=== PATIENT | female | born 1945 | race Caucasian/White ===

== ENCOUNTER 2019-11-22 05:00 | Inpatient (IN) | payer MEDICARE, OTHER ==
--- OUTSIDE RECORDS SUMMARY | 2019-11-22 05:03 | XMS REPORT | Continuity of Care Document ---
:1945 Author Organization [facility] t Address [address] [place] [address] Care Team Providers Name Role Phone Unavailable Unavailable Unavailable Problems Condition Condition Condition Status Onset Resolution Last Treating Co mments Source Name Details Category Date Date Treatment Clinician Date Other Other Problem Active [facility] Left arm Left arm Problem [facility] Pain in Pain in Problem Active [facility] left left [facility] Chronic Chronic Problem Active [facility] gout gout [facility] without without [facility] tophus, tophus, l unspecifie unspecifie Ou tpati d cause, d cause, ent unspecifie unspecifie Cl inics d site d site Gastroesop Gastroesop Problem Active [facility] hageal hageal [facility] - reflux reflux [facility] disease, disease, l esophagiti esophagiti Ou tpati s presence s presence en t not not Clinics specified specified Coronary Coronary Problem [facility] artery [facility] - disease disease [facility] involving involving l [facility] coronary coronary ent artery of artery of Clin ics circle circle heart heart without without angina angina pectoris pectoris Hyperlipid Hyperlipid Problem Active [facility] emia, emia, [facility] - unspecifie unspecifie Me moria d d l hyperlipid hyperlipid Ou tpati emia type emia type ent Clinics Cancer Cancer Problem [facility] Acquired Acquired Problem Active [facility] hypothyroi hypothyroi [facility]m [facility] Hepatitis Hepatitis Problem [facility] Atrial Atrial Problem Active [facility] fibrillati fibrillati [facility] - on, on, Memoria unspecifie unspecifie l d type d type Outpati ent Clinics High blood High blood Problem Active [facility] pressure pressure [facility] Kidney Kidney Problem Active [facility] stones stones [facility] Heart Heart Problem Active [facility] disease disease [facility] Gallstones Gallstones Problem Active [facility] Abnormal Abnormal Problem Active [facility] heart heart [facility] - rhythm rhythm [facility] Allergies, Adverse Reactions, Alerts Allergy Allergy Status Severity Reaction(s) Onset Inactive Treating Comm ents Source Name Type Date Date Clinician penicill Adverse Active rash,itching [facility] in Reaction [facility] Medications Ordered Filled Start Stop Current Ordering Indication Dosage Frequency Signature Comments Components Source Medication Medication Date Date Medication? Clinician (SIG) Name Name Ivet Cooney Yes Raven [address] [facility] Thyroid Thyroid Millender on an Jethro es - empty [facility] stomach l [facility] Procedures This patient has no known procedures. Encounters Start End Encounter Admission Attending Care Care Encounter Source Date/Time Date/Time Type Type Clinicians Facility Department ID 2019-08-20 2019-08-20 Outpatient Jacquie Marshall [id number] [facility] 12:42:00 12:42:00 [facility] Medicine [facility] 2019-08-18 2019-08-18 Outpatient Jacquie Marshall [id number] [facility] 21:15:00 21:15:00 [facility] 2019-08-16 2019-08-16 Outpatient Jacquie Marshall [id number] [facility] 14:00:00 14:00:00 [facility] Medicine Medicine [facility] Results This patient has no known results.
[2019-11-22] MEDS ORDERED: ACETAMINOPHEN 325 MG TABLET ONE (05:26)
[2019-11-22] MEDS ORDERED: NA CHLORIDE 0.9% 500 ML ONE (05:26)
[2019-11-22] MEDS ORDERED: ONDANSETRON 4 MG/2 ML VIAL ONE (05:26)
[2019-11-22 05:55] LABS: Absolute Lymphocytes (CBC) 0.5 K/uL (0.7-4.9); Basophils % 0.3 % (0-1.3); Lymphocytes % 4.4 % (15.3-44.8); MPV 10.5 fL (7.6-11.3); RBC Red Blood Cell Count 3.87 M/uL (3.86-4.86)
[2019-11-22] MEDS ORDERED: MORPHINE 4 MG/ML SYR ONE (05:59)
[2019-11-22 06:02] LABS: Protime INR 2.41
[2019-11-22 06:06] LABS: ALT/SGPT 14 U/L (12-78); AST/SGOT 18 U/L (15-37); Albumin 3.4 g/dL (3.4-5.0); Alkaline Phosphatase 100 U/L (45-117); BUN Blood Urea Nitrogen 26 mg/dL (7-18); Bicarbonate 26 mmol/L (21-32); Bilirubin Direct 0.3 mg/dL (0-0.2); Bilirubin Total 1.2 mg/dL (0.2-1.0); Glucose Level 160 mg/dL (74-106); Magnesium 1.7 mg/dL (1.8-2.4); NT PRO-BNP 9373 pg/mL (<125); Potassium 3.5 mmol/L (3.5-5.1); Protein, Total 7.6 g/dL (6.4-8.2); Sodium Level 139 mmol/L (136-145); Troponin (Emerg Dept Use Only) < 0.02 ng/mL (0.0-0.045)
[2019-11-22] MEDS ORDERED: NA CHLORIDE 0.9% 2,000 ML ONE (06:17)
[2019-11-22] MEDS ORDERED: CEFTRIAXONE/SWI 1gm 1 GM/10 ML SYR ONE (06:17)
[2019-11-22] MEDS ORDERED: FAMOTIDINE 20 MG/2 ML VIAL IV ONE (06:44)
--- NOTE | 2019-11-22 07:24 | ER ---
Nurse's Notes [facility] Name: Sarah Miller Age: 73 yrs Sex: Female : 1945 Arrival Date: 11/22/2019 Time: 05:01 Bed 7 Private MD: Diagnosis: Fever, unspecified;Weakness;Hypomagnesemia;Sepsis, unspecified organism Presentation: 11/21 05:02 Chief complaint: EMS states: patient complaint of nausea, vomiting, not feeling well rr5 and chills. denies cough, or fever started yesterday. Coronavirus screen: Proceed with normal triage. Patient denies a cough. Patient denies shortness of breath or difficulty breathing. Patient denies measured and/or subjective temperature greater than 100.4F prior to today's visit. Patient denies travel on a cruise ship or to a country the [facility] currently lists as an affected area. Patient denies contact with known and/or suspected case of COVID-19. Ebola Screen: Patient negative for fever greater than or equal to 101.5 degrees Fahrenheit, and additional compatible Ebola Virus Disease symptoms Patient denies exposure to infectious person. Patient denies travel to an Ebola-affected area in the 21 days before illness onset. Initial Sepsis Screen: Does the patient meet any 2 criteria? No. Patient's initial sepsis screen is negative. Does the patient have a suspected source of infection? No. Patient's initial sepsis screen is negative. Risk Assessment: Do you want to hurt yourself or someone else? Patient reports no desire to harm self or others. Onset of symptoms was November 21, 2019. 05:02 Method Of Arrival: EMS: [facility] rr5 05:02 Acuity: JOYCE 3 rr5 Historical: - Allergies: 05:10 PENICILLINS; rr5 - Home Meds: 05:10 lisinopril Oral [Active]; unable to give the names medications [Active]; rr5 - PMHx: 05:10 Myocardial infarction; Hypertension; rr5 - PSHx: 05:10 Cholecystectomy; rr5 - Immunization history:: Adult Immunizations unknown. - Social history:: Smoking status: unknown Patient/guardian denies using alcohol, street drugs. - Family history:: not pertinent. Screenin:10 Abuse screen: Denies threats or abuse. Denies injuries from another. Nutritional rr5 screening: No deficits noted. Tuberculosis screening: No symptoms or risk factors identified. Fall Risk IV access (20 points). Total Macias Fall Scale indicates No Risk (0-24 pts). Assessment: 05:11 General: Appears in no apparent distress. uncomfortable, Behavior is calm, cooperative, rr5 appropriate for age, Reports chills for feeling ill for. Pain: Denies pain. Neuro: Level of Consciousness is awake, alert, obeys commands, Oriented to person, place, time. Cardiovascular: Capillary refill < 3 seconds Patient's skin is warm and dry. Respiratory: Airway is patent Respiratory effort is even, unlabored, Respiratory pattern is regular, symmetrical. GI: Reports nausea, vomiting. : No signs and/or symptoms were reported regarding the genitourinary system. EENT: No signs and/or symptoms were reported regarding the EENT system. Derm: Skin is intact, is healthy with good turgor, Skin temperature is warm. Musculoskeletal: Circulation, motion, and sensation intact. Capillary refill < 3 seconds, Reports weakness in generalized. 06:00 Reassessment: Patient appears in no apparent distress at this time. No changes from rr5 previously documented assessment. Patient is alert, oriented x 3, equal unlabored respirations, skin warm/dry/pink. 07:10 General: Appears in no apparent distress. comfortable, well developed, Behavior is sv calm, cooperative, appropriate for age. Pain: Denies pain. Neuro: Level of Consciousness is awake, alert, obeys commands, Oriented to person, place, time, situation, Moves all extremities. Full function. Respiratory: Airway is patent Respiratory effort is even, unlabored, Respiratory pattern is regular, symmetrical. GI: Patient currently denies nausea, vomiting. Derm: Skin is intact, Skin is pink, warm \T\ dry. 07:44 Reassessment: COVID obtained. sv 07:59 Reassessment: Attempted to call report, nurse to call back. sv 08:40 Reassessment: Attempted to call report, nurse to call back. sv 09:25 Reassessment: Patient appears in no apparent distress at this time. No changes from sv previously documented assessment. Patient is alert, oriented x 3, equal unlabored respirations, skin warm/dry/pink. Vital Signs: 05:02 BP 146 / 75; Pulse 85; Resp 20; Temp 99.4; Pulse Ox 100% ; rr5 06:52 BP 111 / 51; Pulse 90; Resp 18; Pulse Ox 95% on 2 lpm NC; ea 07:40 Pulse 91; Resp 16; Pulse Ox 97% ; sv 08:35 BP 92 / 52; Pulse 83; Resp 20; Temp 98.9(O); Pulse Ox 96% on R/A; mh5 09:24 Weight 82.55 kg; Height 5 ft. 5 in. (165.10 cm); sv 09:24 Body Mass Index 30.29 (82.55 kg, 165.10 cm) ED Course: 05:01 Patient arrived in ED. cl3 05:02 Hari Squires, RN is Primary Nurse. rr5 05:05 Triage completed. rr5 05:10 Arm band placed on right wrist. rr5 05:10 Patient has correct armband on for positive identification. Placed in gown. Bed in low rr5 position. Call light in reach. Side rails up X2. monitoring analyst on. Pulse ox on. NIBP on. 05:29 Willi Fink MD is Attending Physician. cyndi 05:30 Inserted saline lock: 20 gauge in left antecubital area, using aseptic technique. Blood ea collected. 05:57 XRAY Chest (1 view) In Process Unspecified. EDMS 06:38 CT Stone Protocol In Process Unspecified. EDMS 07:21 Prince Savage MD is Hospitalizing Provider. cyndi 07:24 Primary Nurse role handed off by Hari Squires, RN sv 07:24 Nancy Chan, TONE is Primary Nurse. sv 08:53 No provider procedures requiring assistance completed. Patient admitted, IV remains in sv place. intact. 09:17 Urine Dipstick--Ancillary (enter results) Sent. sv Administered Medications: 05:38 Drug: NS 0.9% 500 ml Route: IV; Rate: bolus; Site: left antecubital; ea 06:10 Follow up: Response: No adverse reaction; IV Status: Completed infusion; IV Intake: rr5 500ml 05:38 Drug: Zofran (Ondansetron) 4 mg Route: IVP; Site: left antecubital; ea 06:30 Follow up: Response: No adverse reaction rr5 05:50 Drug: Tylenol 650 mg Route: PO; ea 07:00 Follow up: Response: No adverse reaction rr5 05:55 Drug: morphine 4 mg {Note: RASS 1.} Route: IVP; Site: left antecubital; ea 06:12 Drug: Rocephin 1 grams Route: IV; Rate: per protocol; Site: left antecubital; ea 06:18 Drug: NS 0.9% 1000 ml Route: IV; Rate: 1 bolus; Site: left antecubital; ea 06:18 Drug: NS 0.9% 1000 ml Route: IV; Rate: 125 ml/hr; Site: left antecubital; ea 06:38 Drug: Pepcid 20 mg Route: IVP; Site: left antecubital; ea 07:23 Follow up: Response: No adverse reaction sv 07:44 Drug: Magnesium Sulfate 1 grams Route: IVPB; Infused Over: 1 hrs; Site: left sv antecubital; 08:50 Follow up: Response: No adverse reaction; IV Status: Completed infusion; IV Intake: sv 100ml Intake: 06:10 IV: 500ml; Total: 500ml. rr5 08:50 IV: 100ml; Total: 600ml. sv Outcome: 07:23 Decision to Hospitalize by Provider. cyndi 09:25 Admitted to Tele accompanied by tech, via wheelchair, room 412, with chart, Report sv called to Helena WAYNE 09:25 Condition: improved 09:25 Instructed on the need for admit. 09:53 Patient left the ED. sv Signatures: Dispatcher [employer] Nancy Giron RN RN sv Anderson, Corey, MD MD cha Martinez, Maria 5 Antonia Arnold RN RN ea Roque, Raymond, RN RN rr5 Kevin Adame cl3
--- NOTE | 2019-11-22 07:24 | EDPHYS ---
Physician Documentation [facility] Name: Sarah Miller Age: 73 yrs Sex: Female : 1945 Arrival Date: 11/22/2019 Time: 05:01 Bed 7 Private MD: ED Physician Willi Fink HPI: 11/21 06:03 This 73 yrs old Female presents to ER via EMS with complaints of Flu Symptoms.cyndi 06:03 The patient presents with abdominal pain in the upper abdomen, in the lower abdomen. cyndi Onset: The symptoms/episode began/occurred 1 day(s) ago. The patient presents to the emergency department with nausea, vomiting, abdominal pain, of the right upper quadrant, left upper quadrant, right lower quadrant and left lower quadrant. Onset: The symptoms/episode began/occurred 2 day(s) ago. Possible causes: unknown. The symptoms are aggravated by nothing. The symptoms are alleviated by nothing. fever , n and v, weakness. Associated signs and symptoms: Pertinent positives: abdominal pain, fever, nausea, vomiting. Historical: - Allergies: 05:10 PENICILLINS; rr5 - Home Meds: 05:10 lisinopril Oral [Active]; unable to give the names medications [Active]; rr5 - PMHx: 05:10 Myocardial infarction; Hypertension; rr5 - PSHx: 05:10 Cholecystectomy; rr5 - Immunization history:: Adult Immunizations unknown. - Social history:: Smoking status: unknown Patient/guardian denies using alcohol, street drugs. - Family history:: not pertinent. ROS: 06:03 Constitutional: Negative for fever, chills, and weight loss, Eyes: Negative for injury, cyndi pain, redness, and discharge, ENT: Negative for injury, pain, and discharge, Neck: Negative for injury, pain, and swelling, Cardiovascular: Negative for chest pain, palpitations, and edema, Respiratory: Negative for shortness of breath, cough, wheezing, and pleuritic chest pain, Back: Negative for injury and pain, : Negative for injury, bleeding, discharge, and swelling, MS/Extremity: Negative for injury and deformity, Skin: Negative for injury, rash, and discoloration, Psych: Negative for depression, anxiety, suicide ideation, homicidal ideation, and hallucinations, Allergy/Immunology: Negative for hives, rash, and allergies, Endocrine: Negative for neck swelling, polydipsia, polyuria, polyphagia, and marked weight changes, Hematologic/Lymphatic: Negative for swollen nodes, abnormal bleeding, and unusual bruising. 06:03 Constitutional: Positive for body aches, chills, fatigue, fever, malaise, poor PO intake. 06:03 Abdomen/GI: Positive for abdominal pain, nausea and vomiting. 06:03 Neuro: Positive for dizziness, weakness. Exam: 06:03 Constitutional: This is a well developed, well nourished patient who is awake, alert, cyndi and in no acute distress. Head/Face: Normocephalic, atraumatic. Eyes: Pupils equal round and reactive to light, extra-ocular motions intact. Lids and lashes normal. Conjunctiva and sclera are non-icteric and not injected. Cornea within normal limits. Periorbital areas with no swelling, redness, or edema. ENT: Nares patent. No nasal discharge, no septal abnormalities noted. Tympanic membranes are normal and external auditory canals are clear. Oropharynx with no redness, swelling, or masses, exudates, or evidence of obstruction, uvula midline. Mucous membranes moist. Neck: Trachea midline, no thyromegaly or masses palpated, and no cervical lymphadenopathy. Supple, full range of motion without nuchal rigidity, or vertebral point tenderness. No Meningismus. Chest/axilla: Normal chest wall appearance and motion. Nontender with no deformity. No lesions are appreciated. Cardiovascular: Regular rate and rhythm with a normal S1 and S2. No gallops, murmurs, or rubs. Normal PMI, no JVD. No pulse deficits. Respiratory: Lungs have equal breath sounds bilaterally, clear to auscultation and percussion. No rales, rhonchi or wheezes noted. No increased work of breathing, no retractions or nasal flaring. Back: No spinal tenderness. No costovertebral tenderness. Full range of motion. Female : Normal external genitalia. Skin: Warm, dry with normal turgor. Normal color with no rashes, no lesions, and no evidence of cellulitis. MS/ Extremity: Pulses equal, no cyanosis. Neurovascular intact. Full, normal range of motion. Psych: Awake, alert, with orientation to person, place and time. Behavior, mood, and affect are within normal limits. 06:03 Abdomen/GI: Inspection: distension, Bowel sounds: normal, Palpation: mild abdominal tenderness, in all quadrants, Liver: no appreciated palpable abnormalities, Hernia: not appreciated. 06:54 ECG was reviewed by the Attending Physician. [facility] Vital Signs: 05:02 BP 146 / 75; Pulse 85; Resp 20; Temp 99.4; Pulse Ox 100% ; rr5 06:52 BP 111 / 51; Pulse 90; Resp 18; Pulse Ox 95% on 2 lpm NC; ea 07:40 Pulse 91; Resp 16; Pulse Ox 97% ; sv 08:35 BP 92 / 52; Pulse 83; Resp 20; Temp 98.9(O); Pulse Ox 96% on R/A; mh5 09:24 Weight 82.55 kg; Height 5 ft. 5 in. (165.10 cm); sv 09:24 Body Mass Index 30.29 (82.55 kg, 165.10 cm) sv MDM: 05:30 Patient medically screened. [facility] 06:06 Data reviewed: vital signs, nurses notes, lab test result(s), EKG, radiologic studies, cyndi CT scan, plain films. 06:07 Differential Diagnosis altered mental status, sepsis. Differential diagnosis: [facility] Nonspecific abd pain, cholecystitis, pancreatitis, gastroenteritis, cholecystitis, Cholelithiasis, gastroesophageal reflux disease, non-specific abd pain, pancreatitis, Peptic Ulcer Disease. 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 rate is 85 beats/min, rhythm is normal sinus rhythm, Pulse oximetry: on room air is 100 %. Test interpretation: by ED physician or midlevel provider: ECG, plain radiologic studies. Counseling: I had a detailed discussion with the patient and/or guardian regarding: the historical points, exam findings, and any diagnostic results supporting the discharge/admit diagnosis, lab results, radiology results. 11/21 05:07 Order name: Basic Metabolic Panel; Complete Time: 06:53 11/21 05:07 Order name: CBC with Diff; Complete Time: 07:32 11/21 05:07 Order name: LFT's; Complete Time: 06:53 11/21 05:07 Order name: Magnesium; Complete Time: 06:53 11/21 05:07 Order name: NT PRO-BNP; Complete Time: 06:53 11/21 05:07 Order name: PT-INR; Complete Time: 06:53 11/21 05:07 Order name: Troponin (emerg Dept Use Only); Complete Time: 06:53 11/21 05:37 Order name: Flu; Complete Time: 06:53 11/21 05:38 Order name: Strep; Complete Time: 06:53 11/21 06:02 Order name: Blood Culture Adult (2) [facility] 11/21 06:02 Order name: Lactate; Complete Time: 06:53 [facility] 11/21 06:02 Order name: Procalcitonin [facility] 11/21 06:02 Order name: Lipase [facility] 11/21 06:35 Order name: Throat Culture [facility]IL 11/21 05:07 Order name: XRAY Chest (1 view); Complete Time: 09:18 11/21 06:06 Order name: CT Stone Protocol; Complete Time: 09:18 [facility] 11/21 07:08 Order name: COVID-19 [facility] 11/21 07:29 Order name: Manual Differential; Complete Time: 07:32 EDMS 11/21 07:49 Order name: Urine Culture [facility] 11/21 08:40 Order name: Urine Dipstick--Ancillary (enter results) 11/21 08:53 Order name: Urine Dipstick-Ancillary; Complete Time: 09:18 EDMS 11/21 05:07 Order name: EKG; Complete Time: 05:07 11/21 05:07 Order name: Cardiac monitoring; Complete Time: 06:02 11/21 05:07 Order name: EKG - Nurse/Tech; Complete Time: 05:38 11/21 05:07 Order name: IV Saline Lock; Complete Time: 05:38 11/21 05:07 Order name: Labs collected and sent; Complete Time: 05:38 11/21 05:07 Order name: O2 Per Protocol; Complete Time: 05:39 11/21 05:07 Order name: O2 Sat Monitoring; Complete Time: 05:39 11/21 07:49 Order name: Urine Dipstick-Ancillary (obtain specimen); Complete Time: 08:38 [facility] EC:54 Rate is 77 beats/min. QRS [place] is Normal. MI interval is normal. QRS interval is cyndi normal. QT interval is normal. No Q waves. T waves are Normal. No ST changes noted. Clinical impression: NSR w/ Non-specific ST/T Changes and No evidence of ischemia. Interpreted by me. Reviewed by me. Administered Medications: 05:38 Drug: NS 0.9% 500 ml Route: IV; Rate: bolus; Site: left antecubital; ea 06:10 Follow up: Response: No adverse reaction; IV Status: Completed infusion; IV Intake: rr5 500ml 05:38 Drug: Zofran (Ondansetron) 4 mg Route: IVP; Site: left antecubital; ea 06:30 Follow up: Response: No adverse reaction rr5 05:50 Drug: Tylenol 650 mg Route: PO; ea 07:00 Follow up: Response: No adverse reaction rr5 05:55 Drug: morphine 4 mg {Note: RASS 1.} Route: IVP; Site: left antecubital; ea 06:12 Drug: Rocephin 1 grams Route: IV; Rate: per protocol; Site: left antecubital; ea 06:18 Drug: NS 0.9% 1000 ml Route: IV; Rate: 1 bolus; Site: left antecubital; ea 06:18 Drug: NS 0.9% 1000 ml Route: IV; Rate: 125 ml/hr; Site: left antecubital; ea 06:38 Drug: Pepcid 20 mg Route: IVP; Site: left antecubital; ea 07:23 Follow up: Response: No adverse reaction sv 07:44 Drug: Magnesium Sulfate 1 grams Route: IVPB; Infused Over: 1 hrs; Site: left sv antecubital; 08:50 Follow up: Response: No adverse reaction; IV Status: Completed infusion; IV Intake: sv 100ml Disposition: 11/22/19 07:23 Hospitalization ordered by Prince Hussein for Inpatient Admission. Preliminary diagnosis are Fever, unspecified, Weakness, Hypomagnesemia, Sepsis, unspecified organism. - Bed requested for Telemetry/MedSurg (Inpatient). - Status is Inpatient Admission. sv - Condition is Fair. - Problem is new. - Symptoms have improved. Signatures: Dispatcher [employer] Nancy Giron RN RN Willi dAams MD MD cha Roszak, Josh, PA PA [id number] Antonia Arnold RN RN ea Botello, Elizabeth eb Roque, Raymond RN RN rr5 Corrections: (The following items were deleted from the chart) 07:32 07:23 Hospitalization Ordered by Prince Hussein [facility]ENO for Inpatient Admission. Preliminary eb diagnosis is Fever, unspecified; Weakness; Hypomagnesemia; Sepsis, unspecified organism. Bed requested for Telemetry/MedSurg (Inpatient). Status is Inpatient Admission. Condition is Fair. Problem is new. Symptoms have improved. cyndi 07:52 07:32 11/22/2019 07:23 Hospitalization Ordered by Prince Hussein [facility] for Inpatient eb Admission. Preliminary diagnosis is Fever, unspecified; Weakness; Hypomagnesemia; Sepsis, unspecified organism. Bed requested for Telemetry/MedSurg (Inpatient). Status is Inpatient Admission. Condition is Fair. Problem is new. Symptoms have improved. eb 07:56 07:52 11/22/2019 07:23 Hospitalization Ordered by Prince Hussein [facility] for Inpatient eb Admission. Preliminary diagnosis is Fever, unspecified; Weakness; Hypomagnesemia; Sepsis, unspecified organism. Bed requested for [facility] ER HOLD. Status is Inpatient Admission. Condition is Fair. Problem is new. Symptoms have improved. eb 08:52 07:56 11/22/2019 07:23 Hospitalization Ordered by Prince Hussein [facility] for Inpatient eb Admission. Preliminary diagnosis is Fever, unspecified; Weakness; Hypomagnesemia; Sepsis, unspecified organism. Bed requested for Telemetry/MedSurg (Inpatient). Status is Inpatient Admission. Condition is Fair. Problem is new. Symptoms have improved. eb 09:53 08:52 11/22/2019 07:23 Hospitalization Ordered by Prince Hussein [facility] for Inpatient sv Admission. Preliminary diagnosis is Fever, unspecified; Weakness; Hypomagnesemia; Sepsis, unspecified organism. Bed requested for Telemetry/MedSurg (Inpatient). Status is Inpatient Admission. Condition is Fair. Problem is new. Symptoms have improved. eb
[2019-11-22 07:29] LABS: Anisocytosis 1+; Blood Morphology Comment NOTED (NOT SEEN); Platelet Estimate ADEQ; Poikilocytosis 1+
[2019-11-22] MEDS ORDERED: MAGNESIUM SULFATE 1 gm IVPB 1 GM/100 ML BAG IV ONE (07:35)
--- NOTE | 2019-11-22 08:32 | RAD REPORT ---
EXAM DESCRIPTION: CT - Stone Protocol - 11/22/2019 6:38 am CLINICAL HISTORY: Flank pain. Abd pain;Pain COMPARISON: No comparisons TECHNIQUE: Axial images were obtained without oral or IV contrast. Lack of contrast limits solid org an and vascular assessment. The [id number] spans the entirety of the system partially obscuring uppermost abdomen and lung bases. Coronal reformatted images were obtained and reviewed. All CT scans are performed using dose optimization technique as appropriate and may include automated exposure control or mA/KV adjustment according to patient size. FINDINGS: The lower lung dobbins are clear. Cholecystectomy clips. Imaged portions of the liver and spleen show no suspicious findings on non-contrast imaging. The panc reas and adrenal glands are normal. No pathologic lymphadenopathy in the abdomen or pelvis. Mildly atrophic right kidney is seen. Mild left renal perinephric fat stranding is seen. No stone or hydronephrosis. No bowel obstruction, free air, free fluid or abscess. The appendix is not identified as a discrete s tructure, however, no secondary findings of appendicitis are identified. Mild lumbar degenerative changes. IMPRESSION: No urinary tract stones or obstructive uropathy. Left perinephric fat stranding is seen, nonspecific. Suggest correlation for the possibility of urina ry tract infection/pyelonephritis.
[2019-11-22 08:53] LABS: Urine Blood 2+ (NEG); Urine Glucose NEGATIVE (NEG); Urine Protein 2+ (NEG); Urine pH 5.5 (5.0-7.0)
--- NOTE | 2019-11-22 08:59 | RAD REPORT ---
EXAM DESCRIPTION: RAD - Chest Single View - 11/22/2019 5:57 am CLINICAL HISTORY: MALAISE Chest pain. COMPARISON: CHEST SINGLE VIEW dated 02/04/2013; CHEST PA AND LAT 2 VIEW dated 01/24/2008; CHEST SINGLE VIEW dated 01/22/2008; CHEST PA AND LAT 2 VIEW dated 04/11/2003 FINDINGS: Portable technique limits examination quality. Mild interstitial pulmonary edema suspected. The heart is mildly enlarged in size. No displaced fract ures. IMPRESSION: Mild CHF.
--- NOTE | 2019-11-22 11:43 | P.HP ---
Certification for Inpatient Patient admitted to: Inpatient With expected LOS: >2 Midnights Practitioner: I am a practitioner with admitting privileges, knowledge of patient current condition, hospital course, and medical plan of care. Services: Services provided to patient in accordance with Admission requirements found in Title 42 Section 412.3 of the Code of Federal Regulations Patient History Date of Service: 11/22/19 Reason for admission: Generalized weakness History of Present Illness: Patient is a 73-year-old female with a past medical history of hypertension, hypothyroidism and atrial fibrillation (currently on apixaban). She presents to the ER complaining of acute onset of generalized weakness, malaise. Symptoms have been ongoing for the past 1 or 2 days and they worsen as evidenced by vomiting, chills and subjective fever. She is currently admitted as a PUI. Workup so far is suspicious for UTI. Allergies Penicillins Allergy (Verified 11/22/19 11:11) Hives/Rash Physical Examination - Vital Signs Temperature: 98.9 F Blood Pressure: 92/52 Pulse: 83 Respirations: 20 - Physical Exam General: Other (Lethargic and slightly frail) HEENT: Atraumatic, Normocephalic, Other (Right eye ptosis), EOMI Neck: Supple Respiratory: Clear to auscultation bilaterally, Normal air movement Cardiovascular: No edema, Normal pulses, Regular rate/rhythm, Normal S1 S2 Gastrointestinal: Normal bowel sounds, Soft and benign, Non-distended Musculoskeletal: Other (Generalized weakness and restricted in range of motion in both lower extremities extremities) Neurological: Normal speech, Sensation intact, Normal affect - Studies Laboratory Data (last 24 hrs) 11/22/19 06:02: Lipase Cancelled 11/22/19 05:30: PT 28.0 H, INR 2.41 11/22/19 05:30: WBC 11.3 H, Hgb 11.2 L, Hct 34.0 L, Plt Count 134 L 11/22/19 05:30: Sodium 139, Potassium 3.5, BUN 26 H, Creatinine 2.31 H, Glucose 160 H, Magnesium 1.7 L, Total Bilirubin 1.2 H, AST 18, ALT 14, Alkaline Phosphatase 100 Microbiology Data (last 24 hrs): 11/22/19 07:08 Nasopharnyx Coronavirus COVID-19 PCR - Final 11/22/19 05:40 Throat Group A Streptococcus Rapid Screen - Final 11/22/19 05:40 Nasopharnyx Influenza Type A Antigen Screen - Final 11/22/19 05:40 Nasopharnyx Influenza Type B Antigen Screen - Final Assessment and Plan - Problems (Diagnosis) (1) Generalized weakness Current Visit: Yes Status: Acute (2) UTI (urinary tract infection) Current Visit: Yes Status: Acute (3) Hypertension Current Visit: Yes Status: Acute (4) Atrial fibrillation Current Visit: Yes Status: Acute (5) Hypothyroidism Current Visit: Yes Status: Acute (6) Hematuria Current Visit: Yes Status: Acute - Plan Assessment 73-year-old female the past medical history of hypertension, hypothyroidism and atrial fibrillation on apixaban currently admitted with generalized weakness. Workup so far revealed evidence of UTI in the hematoma. She is also being assessed for coronavirus. 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 - Advance Directives Does patient have a Living Will: No Does patient have a Durable POA for Healthcare: No
[2019-11-22 18:40] LABS: Thyroid Stimulating Hormone 0.205 uIU/mL (0.360-3.740)
[2019-11-22] MEDS: METOPROLOL TAR 50 MG TAB PO SCH (20:56)
[2019-11-22] MEDS: GABAPENTIN 100 MG CAP PO SCH (20:57)
[2019-11-22] MEDS: ATORVASTATIN 10 MG TAB PO SCH (20:57)
[2019-11-22] MEDS ORDERED: HOME MED 1 EA UNK (Simvastatin [Simvastatin] 20 MG) PO SCH (21:00)
[2019-11-23] MEDS: LEVOTHYROXINE SOD 0.025 MG TAB PO SCH (06:30)
[2019-11-23] MEDS: THYROID 30 MG TAB PO SCH (06:41)
--- NOTE | 2019-11-23 06:50 | EKG ---
Test Date: 2019-11-22 Test Time: 05:13:44 Orange Picker: KHANG MEASUREMENT RESULTS: Intervals: Rate: 77 LA: QRSD: 140 QT: 404 QTc: 457 [place]: P: LA: QRS: -6 T: -36 INTERPRETIVE STATEMENTS: Sinus rhythm with AV dissociation and Wide QRS rhythm with occasional and consecutive premature ventricular complexes Right bundle branch block Inferior infarct, age undetermined Anterolateral infarct, age undetermined Abnormal ECG Compared to ECG 02/04/2013 05:59:06 Uncertain supraventricular rhythm now present AV dissociation now present Right bundle-branch block now present Atrial fibrillation no longer present ST (T wave) deviation no longer present Possible ischemia no longer present Myocardial infarct finding still present Electronically Signed On 11-23-19 06:48:08 CDT by Mariano Ramirez
[2019-11-23] MEDS: PANTOPRAZOLE 40MG TABLET PO SCH (08:01)
[2019-11-23] MEDS: CEFTRIAXONE/SWI 1gm 1 GM/10 ML SYR IV SCH (08:01)
[2019-11-23] MEDS: allopurinoL 300 MG TAB PO SCH (08:01)
[2019-11-23] MEDS: METOPROLOL TAR 50 MG TAB PO SCH ×2 (08:27→21:16)
[2019-11-23] MEDS ORDERED: HOME MED 1 EA UNK (Omeprazole [Omeprazole] 20 MG) PO SCH (09:00)
[2019-11-23] MEDS ORDERED: HOME MED 1 EA UNK (Thyroid,Pork [Armour Thyroid] 90 MG) PO SCH (09:00)
[2019-11-23] MEDS ORDERED: LINEZOLID 600 MG IVPB 600 MG/300 ML BAG IV SCH (10:01)
[2019-11-23] MEDS ORDERED: VANCOMYCIN 1.5 GM in NA CHLORIDE 0.9% 500 ML IVPB SCH (12:00)
[2019-11-23 12:23] LABS: Urine Appearance TURBID; Urine Bilirubin NEGATIVE (NEG); Urine Blood 1+ (NEG); Urine Color DK YELLOW; Urine Glucose NEGATIVE (NEG); Urine Protein 2+ (NEG); Urine Specific Gravity 1.015 (1.005-1.030); Urine pH 5.5 (5.0-7.0)
[2019-11-23 12:46] LABS: Urine Bacteria >50 /HPF (<20)
[2019-11-23 12:47] LABS: Urine Coarse Granular Casts >10 /LPF (NONE SEEN)
[2019-11-23 12:48] LABS: Urine Culture Reflex Order NOT NEEDED
--- NOTE | 2019-11-23 16:53 | P.PN ---
Subjective Date of Service: 11/23/19 Chief Complaint: Generalized weakness Subjective: Improving (Patient is more energetic interactive this morning.) Physical Examination - Vital Signs Temperature: 98.8 F Blood Pressure: 114/59 Pulse: 79 Respirations: 16 Pulse Ox (%): 97 - Physical Exam General: Alert, In no apparent distress, Cooperative HEENT: Atraumatic, Normocephalic, EOMI Neck: Supple Respiratory: Clear to auscultation bilaterally, Normal air movement Cardiovascular: No edema, Normal pulses, Regular rate/rhythm, Normal S1 S2 Gastrointestinal: Normal bowel sounds, Soft and benign, Non-distended Integumentary: No rashes, No breakdown, No significant lesion, No tenderness/swelling, No erythema, No warmth, No cyanosis Neurological: Normal speech, Sensation intact, Normal affect - Studies Microbiology Data (last 24 hrs): 11/22/19 05:30 Blood - Blood Gram Stain - Final Assessment & Plan - Problems (Diagnosis) (1) Generalized weakness Current Visit: Yes Status: Acute (2) UTI (urinary tract infection) Current Visit: Yes Status: Acute (3) Hypertension Current Visit: Yes Status: Acute (4) Atrial fibrillation Current Visit: Yes Status: Acute (5) Hypothyroidism Current Visit: Yes Status: Acute (6) Hematuria Current Visit: Yes Status: Acute Physician Review Additional Text: Assessment 73-year-old female the past medical history of hypertension, hypothyroidism and atrial fibrillation on apixaban currently admitted with generalized weakness. Workup so far revealed evidence of UTI and hematuria. Blood culture showing gram-negative rods and g positive cocci clusters. Tested negative for coronavirus. Work up for generalized weakness only showed mild vitamin-D insufficiency. Patient has been cleared by physical therapy and she is pending final blood cultures Generalized weakness UTI and hematuria Lactic acidosis Atrial fibrillation on systemic anti coagulation Hypothyroidism Hypertension Suspected CHF Pulmonary edema Plan: Day 2 of ceftriaxone and vancomycin I will hold off systemic anticoagulation due to hematuria Avoid excessive volume repletion due to history of CHF. 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 Will most likely be discharged tomorrow
[2019-11-23] MEDS: GABAPENTIN 100 MG CAP PO SCH (21:15)
[2019-11-23] MEDS: ATORVASTATIN 10 MG TAB PO SCH (21:15)
[2019-11-24] MEDS: LEVOTHYROXINE SOD 0.025 MG TAB PO SCH (05:40)
[2019-11-24] MEDS: THYROID 30 MG TAB PO SCH (05:42)
[2019-11-24] MEDS: PANTOPRAZOLE 40MG TABLET PO SCH (08:15)
[2019-11-24] MEDS: allopurinoL 300 MG TAB PO SCH (08:15)
[2019-11-24] MEDS: CEFTRIAXONE/SWI 1gm 1 GM/10 ML SYR IV SCH (08:16)
[2019-11-24] MEDS: METOPROLOL TAR 50 MG TAB PO SCH (08:20)
[2019-11-24 08:24] VITALS: BP 103/56
[2019-11-24 08:56] LABS: Albumin 2.4 g/dL (3.4-5.0); Bilirubin Total 0.4 mg/dL (0.2-1.0); Potassium 3.4 mmol/L (3.5-5.1); Protein, Total 6.1 g/dL (6.4-8.2)
[2019-11-24 08:57] LABS: Absolute Lymphocytes (CBC) 0.6 K/uL (0.7-4.9); Basophils % 0.3 % (0-1.3); Hematocrit 30.3 % (36.0-45.0); Lymphocytes % 12.2 % (15.3-44.8); MPV 11.1 fL (7.6-11.3); RBC Red Blood Cell Count 3.42 M/uL (3.86-4.86)
[2019-11-24 09:44] VITALS: O2SAT 97; BMI 30.2
[2019-11-24 10:24] VITALS: TEMP 97.8
--- NOTE | 2019-11-24 10:26 | P.DS ---
Admission Date: 11/23/19 Discharge Date: 11/24/19 Disposition: ROUTINE DISCHARGE Discharge Condition: GOOD Reason for Admission: Generalized weakness - Problems (1) Generalized weakness Current Visit: Yes Status: Acute (2) UTI (urinary tract infection) Current Visit: Yes Status: Acute (3) Hypertension Current Visit: Yes Status: Acute (4) Atrial fibrillation Current Visit: Yes Status: Acute (5) Hypothyroidism Current Visit: Yes Status: Acute (6) Hematuria Current Visit: Yes Status: Acute Brief History of Present Illness: Patient is a 73-year-old female with a past medical history of hypertension, hypothyroidism and atrial fibrillation (currently on apixaban). She presents to the ER complaining of acute onset of generalized weakness, malaise. Symptoms have been ongoing for the past 1 or 2 days and they worsen as evidenced by vomiting, chills and subjective fever. She is currently admitted as a PUI. Workup so far is suspicious for UTI. Hospital Course: Patient was admitted with a working diagnosis of sepsis. Workup revealed pansenstive E coli UTI and bacteremia. She has done well on ceftriaxone. She will be discharged with Augmentin for the next 5 days. Of note, there was evidence of microscopic hematuria on admission urine analysis. Patient was taking apixaban for CVA prevention in the setting of atrial fibrillation. The hematuria became less prominent with management of UTI. She will be resumed on apixaban with instructions to stop in case of gross hematuria. She has been cleared by PT for discharge. Vital Signs/Physical Exam: Temp Pulse Resp BP Pulse Ox 97.8 F 74 18 103/56 L 97 11/24/19 08:00 11/24/19 08:20 11/24/19 08:00 11/24/19 08:20 11/24/19 08:00 General: Alert, In no apparent distress, Cooperative HEENT: Atraumatic, Normocephalic, EOMI Neck: Supple Respiratory: Clear to auscultation bilaterally, Normal air movement Cardiovascular: Normal S1 S2, Other (irregular heart rate) Musculoskeletal: No clubbing, No swelling, No contractures, No erythema, No tenderness, No warmth Integumentary: No rashes, No breakdown, No significant lesion, No tenderness/swelling, No erythema, No warmth, No cyanosis Neurological: Normal speech, Sensation intact, Normal affect Laboratory Data at Discharge: WBC 4.9 K/uL (4.3-10.9) D 11/24/19 08:19 Hgb 9.7 g/dL (12.0-15.0) L 11/24/19 08:19 Hct 30.3 % (36.0-45.0) L 11/24/19 08:19 Plt Count 122 K/uL (152-406) L 11/24/19 08:19 PT 28.0 SECONDS (9.5-12.5) H 11/22/19 05:30 INR 2.41 11/22/19 05:30 Sodium 138 mmol/L (136-145) 11/24/19 08:19 Potassium 3.4 mmol/L (3.5-5.1) L 11/24/19 08:19 BUN 26 mg/dL (7-18) H 11/24/19 08:19 Creatinine 2.02 mg/dL (0.55-1.3) H 11/24/19 08:19 Glucose 150 mg/dL (74-106) H 11/24/19 08:19 Magnesium 1.7 mg/dL (1.8-2.4) L 11/22/19 05:30 Total Bilirubin 0.4 mg/dL (0.2-1.0) 11/24/19 08:19 AST 33 U/L (15-37) 11/24/19 08:19 ALT 23 U/L (12-78) 11/24/19 08:19 Alkaline Phosphatase 76 U/L (45-117) 11/24/19 08:19 Lipase 70 U/L (73-393) L 11/22/19 09:38 Home Medications: Allopurinol 300 mg PO DAILY 11/22/19 Apixaban [Eliquis] 5 mg PO BID 11/22/19 Furosemide [Lasix*] 20 mg PO BID 11/22/19 Gabapentin [Neurontin*] 200 mg PO BEDTIME 11/22/19 Levothyroxine Sodium [Synthroid] 25 mcg PO DAILY 11/22/19 Metoprolol Tartrate [Lopressor] 50 mg PO BID 11/22/19 Omeprazole 20 mg PO DAILY 11/22/19 Simvastatin 20 mg PO BEDTIME 11/22/19 Amox/Clavulanate [Augmentin 875-125 Tab] 1 each PO BID #10 tab 11/24/19 New Medications: Amox/Clavulanate [Augmentin 875-125 Tab] 1 each PO BID #10 tab Diet: AHA
[2019-11-24 10:40] LABS: Urine Appearance CLOUDY; Urine Bilirubin NEGATIVE (NEG); Urine Blood NEGATIVE (NEG); Urine Color YELLOW; Urine Glucose NEGATIVE (NEG); Urine Protein 1+ (NEG); Urine Specific Gravity 1.015 (1.005-1.030); Urine pH 5.5 (5.0-7.0)
[2019-11-24 11:23] LABS: Urine Bacteria 20-50 /HPF (<20); Urine Culture Reflex Order REFLEXED; Urine RBC <5 /HPF (NONE SEEN)
== END 2019-11-24 11:52 | disposition home or self-care (01) | DRG 872 ==
LOC: ER 05:00 → ERHOLD 07:41 → 4TH 09:40 → 2ND 11-23 18:03 → OBSVTOIN 11-23 19:17
PROVIDERS: ADMIT Internal Medicine; ATTEND Internal Medicine
DX: A41.9 Sepsis, unspecified organism (principal); N39.0 Urinary tract infection, site not specified; E87.2 Acidosis; J81.1 Chronic pulmonary edema; I10 Essential (primary) hypertension; I48.91 Unspecified atrial fibrillation; Z88.0 Allergy status to penicillin; E03.9 Hypothyroidism, unspecified; R31.9 Hematuria, unspecified; Z11.59 Encounter for screening for other viral diseases; Z79.899 Other long term (current) drug therapy; I25.2 Old myocardial infarction; Z90.49 Acquired absence of other specified parts of digestive tract; B96.20 Unspecified Escherichia coli [E. coli] as the cause of diseases classified elsewhere; Z79.01 Long term (current) use of anticoagulants; Z79.890 Hormone replacement therapy
CPT/HCPCS: 36415; 71045; 74176; 76377; 80048; 80053; 80076; 81001; 81003; 82306; 82550; 82607; 83605; 83690; 83735; 83880; 84145; 84439; 84443; 84484; 85025; 85610; 87040; 87070; 87077; 87081; 87086; 87088; 87186; 87205; 87804; 93005; 96361; 96365; 96375; 97116; 97161; 99285; G0378; J0696; J2405; J3475; J7030; J7040; U0002

== ENCOUNTER 2021-10-31 11:20 | Inpatient (IN) | payer OTHER ==
--- OUTSIDE RECORDS SUMMARY | 2021-10-31 11:23 | XMS REPORT | Continuity of Care Document ---
:1945 Author Organization [facility] t Address [address] [place] [address] Care Team Providers Name Role Phone PCP, DOES NOT HAVE A Primary Care Physician Unavailable Darling Jones Attending Clinician Unavailable Zahra Clark Attending Clinician Unavailable Lemuel Attending Clinician Unavailable Darling CHAVEZ Attending Clinician Unavailable Elpidio Eason PTA Attending Clinician Unavailable Linda BUENO L Attending Clinician Costa Ponce PT Attending Clinician Unavailable Payers Payer Name Policy Type Policy Number Effective Date Expiration Date Lukas conroy [facility] [employer] [id number] 2021 00:00:00 SPRING Problems Condition Condition Condition Status Onset Resolution Last Treating Co mments Source Name Details Category Date Date Treatment Clinician Date No known No known Disease Unive rs active active ity of problems problems [facility] Allergies, Adverse Reactions, Alerts Allergy Allergy Status Severity Reaction(s) Onset Inactive Treating Comm ents Source Name Type Date Date Clinician Penicill Propensi Active Unknown - As a Uni vers in ty to See comments -12 child ity of adverse 00:00: [place] reaction 00 Medical s Branch PENICILL DRUG Active Unknown-Cmnt Un melvina IN INGREDI 5-12 ity of 00:00: [place] 00 Medical Branch penicill Adverse Active rash,itching C ommon in Reaction [facility] Social History Social Habit Start Date Stop Date Quantity Comments Source Exposure to 2021-09-28 2021-10-08 Not sure [facility] SARS-CoV-2 (event) 00:00:00 10:26:00 Medica l Branch Tobacco use and 2021-10-08 2021-10-08 Never used [employer] [facility] exposure 00:00:00 00:00:00 Medical Branch Sex Ass[birth year] [facility] y [facility] 00:00:00 00:00:00 Medical Branch Smoking Status Start Date Stop Date Source Smoker, current status 2021-10-08 00:00:00 [facility] unknown Branch Medications Ordered Filled Start Stop Current Ordering Indication Dosage Frequency Signature Comments Components Source Medication Medication Date Date Medication? Clinician (SIG) Name Name No known No Univers medications 5-12 ity of 10:43: [address] No known No Univers medications 5-12 ity of 10:43: [address] No known No Univers medications 5-12 ity of 10:43: [address] Eliquis Eliquis Yes Raven 1 tablet Comm on Millender [facility] Furosemide Furosemide Yes Raven 1 tablet Common Millender [facility] Gabapentin Gabapentin Yes Raven 1 capsule [facility] Allopurinol Allopurinol Yes Raven 1 tablet Common Millender [facility] Metoprolol Metoprolol Yes Raven 1 tablet Common Tartrate Tartrate Millender with food [facility] B-12 B-12 Yes Raven as Common Millender directed [facility] Levothyroxi Levothyroxi Yes Raven 1 tablet Common ne Sodium ne Sodium Millender in the Spirit morning on - [facility] an empty stomach [facility] [place] Yes Raven 1 tablet Common Thyroid Thyroid Millender on an Spi rit empty - [facility] stomach [facility] Biotin Biotin Yes Raven 1 tablet Common Millender [facility] MethylPREDN MethylPREDN Yes Raven 1 tablet Common ISolone ISolone Millender with food Spirit or milk - [facility] Omeprazole Omeprazole Yes Raven 1 capsule Common Millender [facility] Lisinopril Lisinopril Yes Raven 1 tablet Common Millender [facility] Probiotic Probiotic Yes Raven as Comm on Millender directed [facility] Vitamin D3 Vitamin D3 Yes Raven not Co mmon Millender defined [facility] Simvastatin Simvastatin Yes Raven 1 tablet Common Millender in the [facility] Vital Signs Vital Name Observation Time Observation Value Comments Source Systolic blood 2021-10-08 15:34:00 133 mm[Hg] [facility] Diastolic blood 2021-10-08 15:34:00 78 mm[Hg] [facility] Heart rate 2021-10-08 15:34:00 90 /min [facility] Body height 2021-10-08 15:34:00 165.1 cm [facility] Body weight 2021-10-08 15:34:00 89.994 kg [facility] BMI 2021-10-08 15:34:00 33.02 kg/m2 [facility] Oxygen saturation 2021-10-08 15:34:00 97 /min [facility] in [facility] blood [facility] anch by Pulse oximetry Procedures This patient has no known procedures. Encounters Start End Encounter Admission Attending Care Care Encounter Source Date/Time Date/Time Type Type Clinicians Facility Department ID 2021-06-24 Outpatient Joceline Jones [facility] [id number] Common 14:38:50 [facility] 2021-06-24 Outpatient Joceline Jones [facility] [id number] Common 14:36:59 [facility] 2021-06-24 [facility] [id number] Common 14:36:19 [facility] 2021-06-24 Outpatient Joceline Jones [facility] [id number] Common 14:35:33 [facility] 2021-06-24 Outpatient Jones, Na STLMLC STL[facility] [id number] Common 14:26:12 [id number] [facility] 2021-06-24 Outpatient Jones, Na STLMLC STLMLC [id number] Common 14:25:25 [id number] [facility] 2021-06-24 Outpatient Jones, Na STLMLC STLMLC [id number] Common 13:18:12 [id number] [facility] 2021-06-24 Outpatient Jones, Na STLMLC STLMLC [id number] Common 12:57:57 [id number] [facility] 2021-06-24 Outpatient Jones, Na STLMLC STL[facility]C [id number] 2 Common 12:22:25 [id number] [facility] 2021-06-24 Outpatient Jones, Na STLMLC STLMLC [id number] Common 12:21:04 [id number] [facility] 2021-06-24 Outpatient Clark, STLMLC STLMLC [id number] Common 12:14:56 Porfirio 01488 [facility] 2021-06-24 Outpatient Clark, STLMLC STLMLC [id number] Common 12:00:33 [facility] [id number] [facility] 2021-06-24 Outpatient Millender, STLMLC STLMLC [id number] Common 11:47:13 Raven [id number] [facility] 2021-06-24 Outpatient Millender, STLMLC STLMLC [id number] Common 11:30:43 Raven [id number] [facility] 2021-06-24 Outpatient Millender, STLMLC STLMLC [id number] Common 11:14:46 Raven [id number] [facility] 2021-11-05 2021-11-05 Outpatient R [facility] [id number] Univers 13:45:00 13:45:00 [id number] mary [facility] 2021-11-05 2021-11-05 Outpatient R LINDA [facility] [id number] Univers 13:45:00 13:45:00 CONOR palmery [facility] 2021-11-02 2021-11-02 Outpatient R [facility] [id number] Univers 13:45:00 13:45:00 [id number] ity [facility] 2021-10-30 2021-10-30 Outpatient R [facility] [id number] Univers 13:45:00 13:45:00 [id number] ity [facility] 2021-10-28 2021-10-28 Ancillary Jenaro Nilesh Elpidio [facility] [id number] Univers 13:45:00 14:30:00 Visit Conor Chavez [id number] ity [id number] [id number] Nm [address] 2021-10-28 2021-10-28 Outpatient R [facility] [id number] Univers 13:45:00 13:45:00 [id number] ity [facility] 2021-10-21 2021-10-22 [facility] [id number] Univers 13:00:00 10:17:05 [facility] [place] [facility] 2021-10-21 2021-10-22 Ancillary Kelle Patiño [facility] [id number] Univers 13:00:00 10:17:05 Visit Conor Chavez [id number] ity [facility] [id number] [id number] [address] 2021-10-21 2021-10-21 Outpatient R [facility] [id number] Univers 13:00:00 13:00:00 [id number] ity [facility] 2021-10-08 2021-10-08 Outpatient R CHAVEZ, [facility] [id number] Univers 10:50:00 23:59:00 CONOR [facility] 2021-10-08 2021-10-08 Office Linda [facility] [id number] Univers 10:45:00 11:05:12 Visit [facility] [id number] Abner [id number] Johnathon as RADHA?BLEA [phone] Nm denisse SMITH [address] [place] [address] MEDICAL OFFICE BUILDING 2021-09-15 2021-09-15 ambulatory STLMLC STLMLC [id number] Common 00:00:00 00:00:00 [facility] 2021-09-03 2021-09-03 ambulatory STLMLC STLMLC [id number] Common 00:00:00 00:00:00 [facility] 2021-06-17 2021-06-17 ambulatory STLMLC STLMLC [id number] Common 00:00:00 00:00:00 [facility] 2021-06-16 2021-06-16 ambulatory STLMLC STLMLC [id number] Common 00:00:00 00:00:00 [facility] 2021-05-15 2021-05-15 ambulatory STLMLC STLMLC [id number] Common 00:00:00 00:00:00 [facility] 2021-03-24 2021-03-24 Outpatient STLMLC STLMLC [id number] Common 00:00:00 00:00:00 [facility] 2021-01-13 2021-01-13 Outpatient STLMLC STLMLC [id number] Common 00:00:00 00:00:00 [facility] 2021-01-02 2021-01-02 Outpatient STLMLC STLMLC [id number] Common 00:00:00 00:00:00 [facility] 2020-12-17 2020-12-17 Outpatient STLMLC STLMLC [id number] Common 00:00:00 00:00:00 [facility] 2020-12-05 2020-12-05 Outpatient STLMLC STLMLC [id number] Common 00:00:00 00:00:00 [facility] 2020-10-17 2020-10-17 Outpatient STLMLC STLMLC [id number] Common 00:00:00 00:00:00 [facility] 2020-09-25 2020-09-25 Outpatient STLMLC STLMLC [id number] Common 00:00:00 00:00:00 [facility] 2020-09-25 2020-09-25 Outpatient STLMLC STLMLC [id number] Common 00:00:00 00:00:00 [facility] 2020-09-04 2020-09-04 Outpatient STLMLC STLMLC [id number] Common 00:00:00 00:00:00 [facility] 2020-07-29 2020-07-29 Outpatient STLMLC STLMLC [id number] Common 00:00:00 00:00:00 [facility] 2020-07-10 2020-07-10 Outpatient STLMLC STLMLC [id number] Common 00:00:00 00:00:00 [facility] 2020-06-27 2020-06-27 Outpatient STLMLC STLMLC [id number] Common 00:00:00 00:00:00 [facility] 2020-06-16 2020-06-16 Outpatient STLMLC STLMLC [id number] Common 00:00:00 00:00:00 [facility] 2020-04-14 2020-04-14 Outpatient STLMLC STLMLC [id number] Common 00:00:00 00:00:00 [facility] 2020-03-17 2020-03-17 Outpatient STLMLC STLMLC [id number] Common 00:00:00 00:00:00 [facility] 2020-03-07 2020-03-07 Outpatient STLMLC STLMLC [id number] Common 00:00:00 00:00:00 [facility] 2019-12-06 2019-12-06 Outpatient [facility] [id number] Common 14:20:00 14:20:00 [facility] it [facility] 2019-11-29 2019-11-29 Outpatient [facility] [id number] Common 10:37:00 10:37:00 [facility] it [facility] 2019-11-16 2019-11-16 Outpatient Jacquie Marshall [id number] Common 13:20:00 13:20:00 t [facility] [address] [facility] 2019-08-20 2019-08-20 Outpatient Jacquie Marshall [id number] Common 12:42:00 12:42:[address] [facility] [address] [facility] 2019-08-18 2019-08-18 Outpatient Jacquie Marshall [id number] Common 21:15:00 21:15:[address] [facility] [address] [facility] 2019-08-16 2019-08-16 Outpatient Jacquie Marshall [id number] Common 14:00:00 14:00:00 [facility] [address] [facility] Results Test Description Test Time Test Comments Results Result Comments Source SARS-COV2/RT-PCR ([facility]) 2019-11-22 13:52:00 Test Item Value Reference Range Interpretation Comme nts SARS-COV2/RT-PCR (test code = 1480350) Not Detected Not Detected, N egative SARS-COV-2 PERFORMING LAB (test code = [facility] [id number]) Negative results do not preclude SARS-CoV-2 infection and should not be used as the sole basis for patient management decisions. Negative results must be combined with clinical observations, patient history, and epidemiological information. A false negative result may occur if a specimen is improperly collected, transported or handled.The limit of detection for this assay is 250 copies/mL.This SARS CoV-2 test is a rapid, real-time RT-PCR test intended for the qualitative detection of nucleic acid from SARS-CoV-2 in a nasopharyngeal swab specimen collected from individuals suspected of COVID-19 by their healthcare provider.This test has not been Food and Drug Administration (FDA) cleared or approved and has been authorized by FDA under an Emergency Use Authorization (EUA). This EUA will be effective until the declaration that circumstances exist justifying the authorization of the emergency use of in vitro diagnostic tests for detection and/or diagnosis of COVID-19 is terminated under Section 564(b)(2) of the Act or the EUA is revoked under Section 564(g) of the Act.Fact Sheet for Healthcare Pro viders:https://www.[employer]/Documents/Xpert%20Xpress%20SARS%20CoV-2/Fact%20Sh eets/3023802%01YONH-ABM-8%20HEALTHCARE%20PROVIDERS%20FACT%20SHEET.pdfFact Sheet for Healthcare Patients:https://www.[employer]/Documents/Xpert%20Xpress%20SARS%20CoV-2/Fact%20Sheets/3023801%20SARS-COV -2%20PATIENT%20FACT%20SHEET.pdfPerforming Laboratory:[facility] [place] [address]
[2021-10-31 12:10] LABS: Absolute Lymphocytes (CBC) 0.6 K/uL (0.7-4.9); Hematocrit 31.7 % (36.0-45.0); Lymphocytes % 5.2 % (15.3-44.8); MPV 10.4 fL (7.6-11.3); RBC Red Blood Cell Count 3.47 M/uL (3.86-4.86)
[2021-10-31] MEDS ORDERED: CEFTRIAXONE 1000 MG/VIAL ONE (12:33)
[2021-10-31] MEDS ORDERED: ACETAMINOPHEN 325 MG TABLET ONE (12:33)
[2021-10-31] MEDS ORDERED: NA CHLORIDE 0.9% 1,000 ML ONE (12:33)
[2021-10-31 12:42] LABS: Protime INR 2.59
--- NOTE | 2021-10-31 12:54 | EDPHYS ---
Physician Documentation [facility] Name: Sarah Miller Age: 75 yrs Sex: Female : 1945 Arrival Date: 10/31/2021 Time: 11:24 Bed 5 Private MD: GILMA Physician Willi Fink HPI: 10/31 12:16 This 75 yrs old Female presents to ER via EMS with complaints of cyndi Nausea/Vomiting/Diarrhea. 12:16 The patient presents to the emergency department with nausea, vomiting, diarrhea, that cyndi is continuous. Onset: The symptoms/episode began/occurred 3 day(s) ago. Possible causes: unknown. The symptoms are aggravated by nothing. The symptoms are alleviated by nothing. Associated signs and symptoms: Pertinent positives: abdominal pain, fever, nausea, vomiting. Severity of symptoms: At their worst the symptoms were mild moderate in the emergency department the symptoms are unchanged. The patient has experienced similar episodes in the past, a few times. Historical: - Allergies: 11:27 PENICILLINS; vg1 - Home Meds: 11:27 Eliquis oral [Active]; Metoprolol Tartrate Oral [Active]; Allopurinol Oral [Active]; vg1 14:40 lisinopril Oral [Active]; cuellar - PMHx: 11:27 Hypertension; Myocardial infarction; Atrial fibrillation; vg1 - PSHx: 11:27 Cholecystectomy; vg1 - Immunization history:: Client reports receiving the 2nd dose of the Covid vaccine. - Social history:: Smoking status: Patient denies any tobacco usage or history of. - Family history:: not pertinent. ROS: 12:16 Constitutional: Negative for fever, chills, and weight loss, Eyes: Negative for injury, cyndi pain, redness, and discharge, ENT: Negative for injury, pain, and discharge, Neck: Negative for injury, pain, and swelling, Cardiovascular: Negative for chest pain, palpitations, and edema, Respiratory: Negative for shortness of breath, cough, wheezing, and pleuritic chest pain, Back: Negative for injury and pain, : Negative for injury, bleeding, discharge, and swelling, MS/Extremity: Negative for injury and deformity, Skin: Negative for injury, rash, and discoloration, Neuro: Negative for headache, weakness, numbness, tingling, and seizure, Psych: Negative for depression, anxiety, suicide ideation, homicidal ideation, and hallucinations, Allergy/Immunology: Negative for hives, rash, and allergies, Endocrine: Negative for neck swelling, polydipsia, polyuria, polyphagia, and marked weight changes, Hematologic/Lymphatic: Negative for swollen nodes, abnormal bleeding, and unusual bruising. 12:16 Abdomen/GI: Positive for abdominal pain, nausea and vomiting, diarrhea, abdominal cramps. 12:16 Skin: Positive for pallor. Exam: 12:16 Constitutional: This is a well developed, well nourished patient who is awake, alert, cyndi and in no acute distress. Head/Face: Normocephalic, atraumatic. Eyes: Pupils equal round and reactive to light, extra-ocular motions intact. Lids and lashes normal. Conjunctiva and sclera are non-icteric and not injected. Cornea within normal limits. Periorbital areas with no swelling, redness, or edema. ENT: Nares patent. No nasal discharge, no septal abnormalities noted. Tympanic membranes are normal and external auditory canals are clear. Oropharynx with no redness, swelling, or masses, exudates, or evidence of obstruction, uvula midline. Mucous membranes moist. Neck: Trachea midline, no thyromegaly or masses palpated, and no cervical lymphadenopathy. Supple, full range of motion without nuchal rigidity, or vertebral point tenderness. No Meningismus. Chest/axilla: Normal chest wall appearance and motion. Nontender with no deformity. No lesions are appreciated. Respiratory: Lungs have equal breath sounds bilaterally, clear to auscultation and percussion. No rales, rhonchi or wheezes noted. No increased work of breathing, no retractions or nasal flaring. Back: No spinal tenderness. No costovertebral tenderness. Full range of motion. Female : Normal external genitalia. MS/ Extremity: Pulses equal, no cyanosis. Neurovascular intact. Full, normal range of motion. Neuro: Awake and alert, GCS 15, oriented to person, place, time, and situation. Cranial nerves II-XII grossly intact. Motor strength 5/5 in all extremities. Sensory grossly intact. Cerebellar exam normal. Normal gait. Psych: Awake, alert, with orientation to person, place and time. Behavior, mood, and affect are within normal limits. 12:16 Cardiovascular: Rate: tachycardic, Rhythm: regular, Pulses: no pulse deficits are appreciated, Heart sounds: normal, Edema: is not appreciated, JVD: is not appreciated. 12:16 ECG was reviewed by the Attending Physician. Vital Signs: 11:25 BP 122 / 72; Pulse 98; Resp 19; Temp 100.9(O); Pulse Ox 93% on R/A; Weight 88.45 kg; vg1 Height 5 ft. 5 in. (165.10 cm); Pain 0/10; 12:00 BP 115 / 61; Pulse 90; Resp 16; Pulse Ox 98% on R/A; vg1 12:45 BP 121 / 67; Pulse 99; Resp 22; Temp 100.0(O); Pulse Ox 94% on R/A; vg1 14:37 Temp 100.0; tp1 15:00 BP 125 / 66; Pulse 94; Resp 18; Pulse Ox 96% on R/A; vg1 11:25 Body Mass Index 32.45 (88.45 kg, 165.10 cm) vg1 MDM: 11:28 Patient medically screened. [facility] 12:20 Differential diagnosis: Nonspecific abd pain, gastritis, pancreatitis, viral cyndi gastroenteritis, gastroenteritis. Data reviewed: vital signs, nurses notes, lab test result(s), EKG, radiologic studies, CT scan, plain films. Data interpreted: cafeteria monitor: rate is 98 beats/min, rhythm is atrial fibrillation, Pulse oximetry: on room air is 93 %. Test interpretation: by ED physician or midlevel provider: ECG, plain radiologic studies. Counseling: I had a detailed discussion with the patient and/or guardian regarding: the historical points, exam findings, and any diagnostic results supporting the discharge/admit diagnosis, lab results, radiology results, the need for further work-up and treatment in the hospital. 10/31 11:57 Order name: CBC with Diff; Complete Time: 13:44 [facility] 10/31 11:57 Order name: CMP [facility] 10/31 11:57 Order name: Lipase [facility] 10/31 12:05 Order name: Basic Metabolic Panel; Complete Time: 13:25 cyndi 10/31 12:05 Order name: LFT's; Complete Time: 13:25 cyndi 10/31 12:05 Order name: Magnesium; Complete Time: 13:25 [facility] 10/31 12:05 Order name: NT PRO-BNP; Complete Time: 13:25 [facility] 10/31 12:05 Order name: PT-INR; Complete Time: 12:51 [facility] 10/31 12:05 Order name: Troponin HS; Complete Time: 13:25 [facility] 10/31 12:05 Order name: Blood Culture Adult (2) [facility] 10/31 12:05 Order name: Procalcitonin; Complete Time: 13:44 [facility] 10/31 12:05 Order name: Lactate; Complete Time: 13:25 [facility] 10/31 12:05 Order name: Fecal Leukocyte Stain [facility] 10/31 12:05 Order name: Occult Blood [facility] 10/31 11:57 Order name: IV Saline Lock; Complete Time: 11:57 [facility] 10/31 11:57 Order name: Labs collected and sent; Complete Time: 11:57 [facility] 10/31 12:05 Order name: XRAY Chest (1 view); Complete Time: 13:25 [facility] 10/31 12:05 Order name: EKG; Complete Time: 12:05 [facility] 10/31 12:05 Order name: Cardiac monitoring; Complete Time: 12:07 [facility] 10/31 12:05 Order name: Stool Culture [facility] 10/31 12:05 Order name: CT Abd/Pelvis - Without Contrast; Complete Time: 13:25 [facility] 10/31 12:05 Order name: Flu; Complete Time: 13:25 [facility] 10/31 12:05 Order name: SARS-COV-2 RT PCR (Document "Date of Onset" if Symptomatic); Complete Time: [facility] 13:44 10/31 12:14 Order name: Type And Screen [facility] 10/31 13:28 Order name: Manual Differential; Complete Time: 13:44 EDMS 10/31 12:05 Order name: EKG - Nurse/Tech; Complete Time: 12:07 [facility] 10/31 12:05 Order name: O2 Per Protocol; Complete Time: 12:07 [facility] 10/31 12:05 Order name: O2 Sat Monitoring; Complete Time: 12:06 [facility] 10/31 12:17 Order name: Labs - recollect needed: recollect green top ; Complete Time: 12:25 ph EC:16 Rate is 102 beats/min. Rhythm is irregularly irregular. QRS Tyler is Normal. CT interval cyndi is normal. QRS interval is normal. QT interval is normal. No Q waves. T waves are Normal. No ST changes noted. Clinical impression: Atrial Fibrillation. Interpreted by me. Reviewed by me. Administered Medications: 12:32 Drug: Tylenol 650 mg Route: PO; vg1 15:05 Follow up: Response: No adverse reaction; Temperature is decreased vg1 12:33 Drug: NS 0.9% 1000 ml Route: IV; Rate: 1 bolus; Site: left forearm; vg1 14:36 Follow up: IV Status: Completed infusion; IV Intake: 1000ml vg1 12:34 Drug: Rocephin (cefTRIAXone) 1 grams Route: IV; Rate: per protocol; Site: left forearm; vg1 15:06 Follow up: IV Status: Completed infusion vg1 14:36 Drug: Magnesium Sulfate 1 grams Route: IVPB; Infused Over: 1 hrs; Site: left forearm; vg1 Disposition Summary: 10/31/21 12:53 Hospitalization Ordered Hospitalization Status: Inpatient Admission cyndi Provider: Jeffrey Lam cha Location: Telemetry/MedSurg (Inpatient) cyndi Condition: Fair cyndi Problem: new cyndi Symptoms: have improved cyndi Bed/Room Type: Standard [facility] Room Assignment: 215(10/31/21 14:34) dw Diagnosis - Fever, unspecified cyndi - Weakness cyndi - Chronic atrial fibrillation cyndi - Diarrhea, unspecified cyndi - Elevated white blood cell count cyndi - Hypomagnesemia cyndi - Acute kidney failure, unspecified - on chronic cyndi - Hypokalemia cyndi Forms: - Medication Reconciliation Form cyndi - SBAR form cyndi Signatures: Dispatcher [employer] EDMS Roselia Silveira RN RN dw Anderson, Corey, MD MD cha Hall, Patricia, RN RN ph Garcia, Victoria, RN RN 1 Xochitl Conn RN RN cuellar Corrections: (The following items were deleted from the chart) 13:29 12:14 CBC Smear Scan ordered. EDMS EDMS 14:34 12:53 cyndi dw
--- NOTE | 2021-10-31 12:54 | ER ---
Nurse's Notes [facility] Name: Sarah Miller Age: 75 yrs Sex: Female : 1945 Arrival Date: 10/31/2021 Time: 11:24 Bed 5 Private MD: Diagnosis: Fever, unspecified;Weakness;Chronic atrial fibrillation;Diarrhea, unspecified;Elevated white blood cell count;Hypomagnesemia;Acute kidney failure, unspecified-on chronic;Hypokalemia Presentation: 10/31 11:25 Chief complaint: EMS states: NVD x 2 days and weakness; denies ABD pain. Coronavirus vg1 screen: Vaccine status: Patient reports receiving the 2nd dose of the covid vaccine. Client denies travel out of the [place] in the last 14 days. Ebola Screen: Patient denies exposure to infectious person. Patient denies travel to an Ebola-affected area in the 21 days before illness onset. Initial Sepsis Screen: Does the patient meet any 2 criteria? No. Patient's initial sepsis screen is negative. Does the patient have a suspected source of infection? No. Patient's initial sepsis screen is negative. Risk Assessment: Do you want to hurt yourself or someone else? Patient reports no desire to harm self or others. Onset of symptoms was October 28, 2021. 11:25 Method Of Arrival: EMS: [facility] 1 11:25 Acuity: JOYCE 3 vg1 11:27 Care prior to arrival: IV initiated. 22 GA, in the left forearm. vg1 Triage Assessment: 11:27 General: Appears uncomfortable, Behavior is calm, cooperative. Pain: Denies pain. EENT: vg1 No signs and/or symptoms were reported regarding the EENT system. Neuro: Level of Consciousness is awake, alert, obeys commands, Oriented to person, place, time, situation. Cardiovascular: Patient's skin is warm and dry. Respiratory: Airway is patent Respiratory effort is even, unlabored. GI: Abdomen is round non-distended, Reports diarrhea, nausea, vomiting. : No signs and/or symptoms were reported regarding the genitourinary system. Derm: Skin is intact, Skin is pink, warm \T\ dry. Musculoskeletal: Circulation, motion, and sensation intact. Historical: - Allergies: 11:27 PENICILLINS; vg1 - Home Meds: 11:27 Eliquis oral [Active]; Metoprolol Tartrate Oral [Active]; Allopurinol Oral [Active]; vg1 14:40 lisinopril Oral [Active]; cuellar - PMHx: 11:27 Hypertension; Myocardial infarction; Atrial fibrillation; vg1 - PSHx: 11:27 Cholecystectomy; vg1 - Immunization history:: Client reports receiving the 2nd dose of the Covid vaccine. - Social history:: Smoking status: Patient denies any tobacco usage or history of. - Family history:: not pertinent. Screenin:30 Abuse screen: Denies threats or abuse. Nutritional screening: No deficits noted. vg1 Tuberculosis screening: No symptoms or risk factors identified. Fall Risk No fall in past 12 months (0 pts). No secondary diagnosis (0 pts). IV access (20 points). Ambulatory Aid- None/Bed Rest/Nurse Assist (0 pts). Gait- Weak (10 pts.). Mental Status- Oriented to own ability (0 pts). Total Macias Fall Scale indicates Low Risk Score (25-44 pts). Fall prevention measures have been instituted. Side Rails Up X 2 Placed close to Nursing Station As available Patient and Family Educated on Fall Prevention Program and strategies. Assessment: 11:30 Reassessment: SEE TRIAGE. vg1 12:39 Reassessment: Patient appears in no apparent distress at this time. No changes from vg1 previously documented assessment. Patient and/or family updated on plan of care and expected duration. Pain level reassessed. Patient is alert, oriented x 3, equal unlabored respirations, skin warm/dry/pink. Vital Signs: 11:25 BP 122 / 72; Pulse 98; Resp 19; Temp 100.9(O); Pulse Ox 93% on R/A; Weight 88.45 kg; vg1 Height 5 ft. 5 in. (165.10 cm); Pain 0/10; 12:00 BP 115 / 61; Pulse 90; Resp 16; Pulse Ox 98% on R/A; vg1 12:45 BP 121 / 67; Pulse 99; Resp 22; Temp 100.0(O); Pulse Ox 94% on R/A; vg1 14:37 Temp 100.0; tp1 15:00 BP 125 / 66; Pulse 94; Resp 18; Pulse Ox 96% on R/A; vg1 11:25 Body Mass Index 32.45 (88.45 kg, 165.10 cm) vg1 ED Course: 11:24 Patient arrived in ED. vg1 11:27 Triage completed. vg1 11:27 Arm band placed on. EKG completed in triage. Results shown to MD. vg1 11:28 Willi Fink MD is Attending Physician. cyndi 11:30 Patient has correct armband on for positive identification. Bed in low position. Call vg1 light in reach. Side rails up X2. Client placed on continuous cardiac and pulse oximetry monitoring. NIBP monitoring applied. awake overnight monitor on. 11:30 No provider procedures requiring assistance completed. Maintain EMS IV. Dressing vg1 intact. Good blood return noted. Site clean \T\ dry. Gauge \T\ site: 22 G L FA. 11:31 Darcy Hicks RN is Primary Nurse. vg1 12:51 Jeffrey Lam is Hospitalizing Provider. cyndi 12:57 XRAY Chest (1 view) In Process Unspecified. EDMS 13:04 CT Abd/Pelvis - Without Contrast In Process Unspecified. EDMS 15:05 Patient admitted, IV remains in place. vg1 Administered Medications: 12:32 Drug: Tylenol 650 mg Route: PO; vg1 15:05 Follow up: Response: No adverse reaction; Temperature is decreased vg1 12:33 Drug: NS 0.9% 1000 ml Route: IV; Rate: 1 bolus; Site: left forearm; vg1 14:36 Follow up: IV Status: Completed infusion; IV Intake: 1000ml vg1 12:34 Drug: Rocephin (cefTRIAXone) 1 grams Route: IV; Rate: per protocol; Site: left forearm; vg1 15:06 Follow up: IV Status: Completed infusion vg1 14:36 Drug: Magnesium Sulfate 1 grams Route: IVPB; Infused Over: 1 hrs; Site: left forearm; vg1 Medication: 15:04 VIS not applicable for this client. vg1 Intake: 14:36 IV: 1000ml; Total: 1000ml. vg1 Outcome: 12:53 Decision to Hospitalize by Provider. cyndi 15:04 Admitted to Tele room 215, with chart, Report called to Mishel WAYNE vg1 15:04 Condition: good 15:04 Instructed on the need for admit. 15:24 Patient left the ED. vg1 Signatures: Dispatcher [employer] EDMS Willi Fink MD MD cyndi Kurt, Darcy, RN RN vg1 Janina Vallejo tp1 Xochitl Conn RN RN cuellar
[2021-10-31 13:03] LABS: Albumin 2.7 g/dL (3.4-5.0); Bilirubin Direct 0.9 mg/dL (0-0.2); Bilirubin Total 1.6 mg/dL (0.2-1.0); Troponin High Sensitivity 37.2 pg/mL (<58.9)
[2021-10-31 13:04] LABS: Magnesium 1.7 mg/dL (1.8-2.4); Potassium 3.4 mmol/L (3.5-5.1)
--- NOTE | 2021-10-31 13:16 | RAD REPORT ---
EXAM DESCRIPTION: CT - Abdomen Pelvis Wo Contrast - 10/31/2021 1:03 pm CLINICAL HISTORY: Abdominal pain COMPARISON: 2019 TECHNIQUE: Computed axial tomography of the abdomen and pelvis was obtained. IV and oral contrast we re not requested. All CT scans are performed using dose optimization technique as appropriate and may include automated exposure control or mA/KV adjustment according to patient size. FINDINGS: The evaluation of solid organs, vessels and bowel is limited secondary to the lack of con trast administration. Small pericardial effusion Cholecystectomy The liver, spleen, pancreas, and adrenals appear grossly normal. Right renal cortical thinning is chronic The appendix is normal. There is no evidence of diverticulitis. No adnexal mass. Atherosclerosis IMPRESSION: No acute abnormality is displayed.
--- NOTE | 2021-10-31 13:21 | RAD REPORT ---
EXAM DESCRIPTION: Soledad Single View10/31/2021 12:56 pm CLINICAL HISTORY: Cough COMPARISON: 2019 FINDINGS: The lungs appear clear of acute infiltrate. The heart is mildly enlarged IMPRESSION: No acute abnormalities displayed
[2021-10-31 13:27] LABS: Platelet Estimate ADEQ; Platelets, Giant 1+
[2021-10-31 13:28] LABS: Anisocytosis 1+; Blood Morphology Comment NOTED (NOT SEEN); Hypochromasia 1+; Macrocytosis 1+; Ovalocytes 1+; Poikilocytosis 1+; Teardrop Cell 1+
[2021-10-31] MEDS ORDERED: CIPROFLOXACIN 400mg IV 400 MG/200 ML BAG IV ONE ×2 (13:30→15:30)
--- NOTE | 2021-10-31 13:37 | P.HP ---
Certification for Inpatient Patient admitted to: Observation With expected LOS: <2 Midnights Practitioner: I am a practitioner with admitting privileges, knowledge of patient current condition, hospital course, and medical plan of care. Services: Services provided to patient in accordance with Admission requirements found in Title 42 Section 412.3 of the Code of Federal Regulations Patient History Date of Service: 10/31/21 Reason for admission: Diarrhea History of Present Illness: 75-year-old man with a history of chronic atrial fibrillation, hypothyroidism, chronic kidney disease and gout presented to the emergency department with a complaint of diarrhea of onset 3 days ago. Patient reports multiple bouts of watery diarrhea, which got progressively worse. She had about 4 bouts of diarrhea last night. Symptoms associated with occasional nausea and vomiting. She denied any fever. She denied any recent antibiotic use. She reported seeing blood staining on the toilet paper last night and believes it is due to excoriations from multiple diarrhea episodes. Blood work in the emergency department shows elevated creatinine up to 2.8, mild leukocytosis. CT abdomen and pelvis is unremarkable. COVID-19 test is negative. Patient is placed under observation for diarrhea with KENDRA. Allergies Penicillins Allergy (Verified 11/22/19 11:11) Hives/Rash Home Medications: Allopurinol 300 mg PO DAILY 11/22/19 Apixaban [Eliquis] 5 mg PO BID 11/22/19 Furosemide [Lasix*] 20 mg PO BID 11/22/19 Gabapentin [Neurontin*] 200 mg PO BEDTIME 11/22/19 Levothyroxine Sodium [Synthroid] 25 mcg PO DAILY 11/22/19 Metoprolol Tartrate [Lopressor] 50 mg PO BID 11/22/19 Omeprazole 20 mg PO DAILY 11/22/19 Simvastatin 20 mg PO BEDTIME 11/22/19 Amox/Clavulanate [Augmentin 875-125 Tab] 1 each PO BID #10 tab 11/24/19 - Past Medical/Surgical History Diabetic: No -: AFib -: HTN -: Hypothyroidism -: Gout -: Neuropathy -: High Cholesterol -: Breast Cancer -: Rt Mastectomy x15 yrs ago -: Cholecystectomy - Family History Family History: Reviewed- Non-Contributory - Social History Smoking Status: Never smoker Alcohol use: No CD- Drugs: No Caffeine use: No Review of Systems Other: Patient denies any abdominal pain, denies any fever, denies any shortness of breath. Except as documented, all other systems reviewed and negative. Physical Examination - Physical Exam General: Alert, In no apparent distress, Oriented x3 HEENT: Mucous membr. moist/pink Neck: Supple, JVD not distended Respiratory: Clear to auscultation bilaterally, Normal air movement Cardiovascular: No edema, Normal S1 S2, No murmurs, Irregular heart rate/rhythm Gastrointestinal: Normal bowel sounds, Soft and benign, Non-distended, No tenderness Musculoskeletal: No swelling, No tenderness Integumentary: No rashes, No erythema, No cyanosis Neurological: Normal speech, Normal strength at 5/5 x4 extr, Cranial nerves 3-12 intact Lymphatics: No axilla or inguinal lymphadenopathy - Studies Laboratory Data (last 24 hrs) 10/31/21 12:24: PT 29.1 H, INR 2.59 10/31/21 12:24: Sodium 138, Potassium 3.4 L, BUN 28 H, Creatinine 2.83 H, Glucose 161 H, Magnesium 1.7 L D, Total Bilirubin 1.6 H, AST 25, ALT 13, Alkaline Phosphatase 83 10/31/21 11:40: WBC 12.1 H, Hgb 10.2 L, Hct 31.7 L, Plt Count 152 Microbiology Data (last 24 hrs): 10/31/21 12:05 Nasopharnyx Influenza Type A Antigen Screen - Final 10/31/21 12:05 Nasopharnyx Influenza Type B Antigen Screen - Final Assessment and Plan - Problems (Diagnosis) (1) Acute gastroenteritis Current Visit: Yes Status: Acute (2) Acute worsening of stage 3 chronic kidney disease Current Visit: Yes Status: Acute (3) Atrial fibrillation Current Visit: No Status: Acute (4) Hypertension Current Visit: No Status: Acute (5) Hypothyroidism Current Visit: No Status: Acute - Plan Placed under observation on the medical floor. Hydrate with IV normal saline. Monitor renal function Obtain stool studies-stool lactoferrin. IV ciprofloxacin and Flagyl. Monitor and replete electrolyte as needed. Continue Eliquis for atrial fibrillation. Monitor for active bleeding Monitor CBC - Advance Directives Does patient have a Living Will: No Does patient have a Durable POA for Healthcare: No
[2021-10-31] MEDS ORDERED: MAGNESIUM SULFATE 1 gm IVPB 1 GM/100 ML BAG IV ONE (14:38)
[2021-10-31] MEDS ORDERED: ACETAMINOPHEN 500 MG TAB PO PRN (14:55)
[2021-10-31] MEDS ORDERED: ONDANSETRON 4 MG/2 ML VIAL IV PRN (14:55)
[2021-10-31 15:27] VITALS: BMI 31.4
[2021-10-31] MEDS: NA CHLORIDE 0.9% 1,000 ML IV SCH (15:39)
[2021-10-31] MEDS: METRONIDAZOLE 500mg IVPB 500 MG/100 ML BAG IV SCH (17:31)
[2021-10-31] MEDS: Ciprofloxacin 200mg IV 200 MG/100 ML IV.SOLN. IV SCH (20:24)
[2021-10-31] MEDS ORDERED: PROMETHAZINE INJ 25 MG/ML AMP IV PRN (23:55)
[2021-11-01] MEDS: METRONIDAZOLE 500mg IVPB 500 MG/100 ML BAG IV SCH ×3 (00:03→18:07)
[2021-11-01] MEDS: NA CHLORIDE 0.9% 1,000 ML IV SCH ×5 (00:55→20:55)
[2021-11-01] MEDS ORDERED: ACETAMINOPHEN 500 MG TAB PO ONE (00:58)
[2021-11-01] MEDS ORDERED: NA CHLORIDE 0.9% 1,000 ML IV ONE (01:01)
[2021-11-01] MEDS ORDERED: IBUPROFEN 400 MG TAB PO ONE (01:07)
[2021-11-01 05:10] LABS: Urine Appearance Cloudy (Clear); Urine Bilirubin Negative (Negative); Urine Blood 3+ (Negative); Urine Glucose Negative (Negative); Urine Protein 2+ (Negative); Urine Specific Gravity 1.025 (1.005-1.030); Urine Urobilinogen 0.2 mg/dL (0.2-1.0); Urine pH 5.5 (5.0-7.0)
[2021-11-01 05:13] LABS: Urine Color DK YELLOW (Yellow)
[2021-11-01 05:14] LABS: Urine Microscopic Reflex ORDER UMIC
[2021-11-01 05:23] LABS: Urine Bacteria >50 /HPF (<20)
[2021-11-01 05:24] LABS: Urine Coarse Granular Casts FEW /LPF (NONE SEEN)
[2021-11-01 06:14] LABS: Absolute Lymphocytes (CBC) 0.4 K/uL (0.7-4.9); Hematocrit 27.4 % (36.0-45.0); Lymphocytes % 5.7 % (15.3-44.8); RBC Red Blood Cell Count 3.01 M/uL (3.86-4.86)
[2021-11-01 06:18] LABS: Potassium 3.3 mmol/L (3.5-5.1)
[2021-11-01 06:38] LABS: Magnesium 1.8 mg/dL (1.8-2.4)
[2021-11-01] MEDS ORDERED: MAGNESIUM SULFATE 1 gm IVPB 1 GM/100 ML BAG IV ONE (07:19)
[2021-11-01] MEDS ORDERED: POTASSIUM 25 MEQ EFFERV TAB PO ONE ×2 (09:00→17:10)
[2021-11-01] MEDS: Ciprofloxacin 200mg IV 200 MG/100 ML IV.SOLN. IV SCH ×2 (10:03→21:11)
[2021-11-01 13:55] LABS: C.diff Antigen/Toxin Ag pos : Tox neg (NEG : NEG)
--- NOTE | 2021-11-01 14:57 | P.PN ---
Subjective Date of Service: 11/01/21 Chief Complaint: Diarrhea Patient reports persistent diarrhea. Renal function has not improved with IV hydration. She denies any abdominal pain. Physical Examination - Vital Signs Temperature: 97.5 F Blood Pressure: 112/67 Pulse: 91 Respirations: 17 Pulse Ox (%): 95 - Physical Exam General: Alert, Oriented x3, Obese HEENT: Mucous membr. moist/pink Neck: JVD not distended Respiratory: Clear to auscultation bilaterally, Normal air movement Cardiovascular: No edema, Regular rate/rhythm, Normal S1 S2 Gastrointestinal: Normal bowel sounds, Soft and benign, Non-distended, No tenderness Musculoskeletal: No swelling Integumentary: No rashes Neurological: Normal speech, Normal strength at 5/5 x4 extr - Studies Laboratory Data (last 24 hrs) 11/01/21 05:30: Sodium 140, Potassium 3.3 L, BUN 28 H, Creatinine 2.84 H, Glucose 136 H, Phosphorus 3.0, Magnesium 1.8 11/01/21 05:30: APTT 33.0 11/01/21 05:30: WBC 7.8 D, Hgb 9.0 L, Hct 27.4 L, Plt Count 115 L D 10/31/21 11:40: Sodium Cancelled, Potassium Cancelled, BUN Cancelled, Creatinine Cancelled, Glucose Cancelled, Total Bilirubin Cancelled, AST Cancelled, ALT Cancelled, Alkaline Phosphatase Cancelled, Lipase Cancelled Microbiology Data (last 24 hrs): 10/31/21 12:24 Blood - Blood Gram Stain - Final 10/31/21 12:14 Blood - Blood Blood Culture Gram Stain - Final 10/31/21 12:14 Blood - Blood Gram Stain - Final 10/31/21 12:05 Nasopharnyx Influenza Type A Antigen Screen - Final 10/31/21 12:05 Nasopharnyx Influenza Type B Antigen Screen - Final Assessment And Plan - Current Problems (Diagnosis) (1) Acute gastroenteritis Current Visit: Yes Status: Acute (2) Acute worsening of stage 3 chronic kidney disease Current Visit: Yes Status: Acute (3) Atrial fibrillation Current Visit: No Status: Acute (4) Hypertension Current Visit: No Status: Acute (5) Hypothyroidism Current Visit: No Status: Acute - Plan Continue IV hydration with IV normal saline. Monitor and replete electrolytes Monitor renal function. Nephrology consulted. C. difficile ordered, check stool lactoferrin. Continue IV ciprofloxacin and Flagyl. Continue Eliquis for atrial fibrillation. Monitor for active bleeding Monitor CBC
[2021-11-02] MEDS: METRONIDAZOLE 500mg IVPB 500 MG/100 ML BAG IV SCH ×2 (01:05→09:31)
[2021-11-02] MEDS: NA CHLORIDE 0.9% 1,000 ML IV SCH ×4 (06:21→23:58)
[2021-11-02 06:26] LABS: Magnesium 1.9 mg/dL (1.8-2.4); Potassium 3.9 mmol/L (3.5-5.1)
[2021-11-02] MEDS ORDERED: POTASSIUM 25 MEQ EFFERV TAB PO ONE (09:00)
[2021-11-02] MEDS: Ciprofloxacin 200mg IV 200 MG/100 ML IV.SOLN. IV SCH (09:31)
[2021-11-02] MEDS ORDERED: DRISDOL (VITAMIN D=ERGOCALCIFEROL) 50000 UNIT CAP PO SCH (10:30)
[2021-11-02] MEDS ORDERED: EPOETIN ALFA-EPBX 10,000 UNIT/ML VIAL SQ SCH (11:00)
--- NOTE | 2021-11-02 13:24 | EKG ---
Test Date: 2021-10-31 Test Time: 11:27:10 Pharmacy Informaticist: HAUS MEASUREMENT RESULTS: Intervals: Rate: 102 NC: QRSD: 138 QT: 364 QTc: 474 Portis: P: NC: QRS: 6 T: -60 INTERPRETIVE STATEMENTS: Atrial fibrillation with rapid ventricular response Right bundle branch block Possible Lateral infarct, age undetermined Inferior infarct, age undetermined Abnormal ECG Compared to ECG 10/31/2021 11:25:59 Right bundle-branch block now present T-wave abnormality no longer present Possible ischemia no longer present Myocardial infarct finding still present Electronically Signed On 11-02-21 13:21:36 CDT by Ricky Melendez
--- NOTE | 2021-11-02 14:11 | CON ---
Date of Consultation: 11/02/2021 History Of Present Illness: The patient seen in room 215 at [facility] in [place]. The patient is alert, awake and comfortable, able to answer questions appropriately. Denies any he adache, nausea, vomiting. Does not have a fever. She does not look ill. She does not seem to be in any distress currently. The patient presented to the hospital with diarrhea that has been going on for at least 3 days. The patient thinks that it may have actually started a few days before that, keren alcaraz about a week or so. She has a history of atrial fibrillation, sees Dr. Ramirez for this. Has be en on anticoagulation. States that it has been pretty stable and has been rate controlled. She has history of chronic kidney disease, sees Dr. Staton for that. Has had stage 4 CKD with a creatinine in the 1 to 2.5 range and has been advised about dialysis options in the past, but has not been in an y need of dialysis and her kidney status is in about stage 4 range with GFR close to 20. Presents wi th creatinine slightly more elevated than her CKD baseline with a creatinine range of about 2.8 range . Her COVID test is negative. Her CT of the abdomen and pelvis was not concerning for any significa nt masses that could be seen on the CT and/or any diverticulitis. The patient may have had a mild le ukocytosis when she came in, but currently her WBC count is down to 7.8. She is having diarrhea stil l, but states that is improved. She has only had about 2 bowels a day now with 1 episode earlier in the shift in the last 12 hours. She has been able to tolerate p.o. intake. She is not having any na usea currently, has been able to have a couple of orange juices as her potassium was a bit on the low er side and was advised to take some orange juice and she has tolerated that well. Allergies: TO PENICILLIN. Medications: Home medications are in the chart and reviewed. The patient has been on Eliquis for an ticoagulation. She has also been on Lasix. She is taking gabapentin. She has been on thyroid medic ation, metoprolol. She has also been on Augmentin in the past, but she says that was 2 years ago. H as not taken any antibiotics recently, she states. Family History: Noncontributory. Social History: Does not smoke. Does not drink alcohol. Does not use drugs. She states that the arnold gonzalez lives with her. 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 Denies any depression. Feels like she is in good spir its and no suicidal, homicidal ideation. Physical Examination: General: The patient is alert, awake, looks comfortable. Vital Signs: Blood pressure is about 130/63. Her pulse is about 80 and irregularly irregular. Her temperature is afebrile. Her blood pressure is 130/63, before that 119/66. Her O2 sats are 98% on r oom air. Lungs: Clear to auscultation bilaterally. Abdomen: Soft. Extremities: Reveal no edema. Skin: Actually on the dry side. Laboratory Data: Chest x-ray reviewed. Chest x-ray does not show any evidence of significant conges tion. As per the report, it states no acute abnormalities displayed. CT abdomen and pelvis done on October 31, same day as the x-ray, does not show any diverticulitis as per the radiology report. No acu te abnormalities displayed. Lab data reviewed. WBC count was 12.1 yesterday, but has come down to 7 .8, hemoglobin 9.0, hematocrit 27.4, platelet count 115. Chemistry shows sodium 140, potassium 3.9, chloride 109, bicarb is 24, BUN is 29, creatinine is 2.68 and it was 2.84 yesterday, calcium level of 8.3, magnesium level of 1.9. Urine showed wbc's and also bacteria. Blood culture is growing gram-n egative rods, but this is a preliminary report, final report is pending. C diff PCR is pending. Blo od cultures as mentioned showing gram-negative rods. This was from October 31, but urine culture is no t growing any organisms as of now. Assessment And Plan: Chronic kidney disease with acute exacerbation. The patient with slightly elev ated creatinine from her baseline. Her baseline is in the 2 range already. The patient has stage CK D 4 kidney disease status with GFR around 20. The patient does seem to be volume depleted. Lungs ar e clear. Has no edema. Has no swelling. Skin is actually looking dry. Mucosa is dry. The patient also has a history of atrial fibrillation. Heart rate is controlled. She is on Eliquis. Her hemog lobin is reasonable at about 9, does not have any evidence of acute bleeding. Does have some diarrhe a, but this is improving. Clostridium difficile is pending. She has not been on recent antibiotics. She is currently getting metronidazole for the gram-negative rods. She is on Cipro. She does not look septic on physical examination, afebrile. WBCs are normal. Clinically looking well, alert, ayleen ke and comfortable. Her potassium was slightly on the lower side, but has tolerated orange juice and is now in 3 range. Her calcium is slightly on the lower side. Plan: 1.Anemia. We will give a shot of Retacrit. Continue to monitor. No evidence of acute bleed curren tly. 2.Diarrhea, improving on metronidazole. C diff pending. No recent antibiotic use. 3.Atrial fibrillation. Atrial fibrillation seems to be relatively stable. 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 Currently on Eliquis and stable. 4.KENDRA/CKD. The patient's creatinine is close to baseline, slightly elevated, but the patient does s eem volume depleted. Agree with normal saline, continue at 100 cc an hour. Repeat BMP tomorrow. 5.Hypokalemia, improved already. We will hold off on potassium replacement p.o. The patient has be en eating and drinking now. Diarrhea is improving. Monitor with BMP tomorrow. 6.Calcium is slightly on the lower side in 8 range. We will go ahead and give ergocalciferol once e very week with a dose now. 7.Bacteremia, question with 2 episodes of gram-negative bacteria. The patient is currently on Cipro . I have discussed this with her in some detail. She seems to alert and understands the condition w ell. I have explained to her that gram-negative bacteremia can sometimes point to a lesion in the co jessica, which cannot be always seen on CT scan. She should get a colonoscopy. She states she is due fo r one in 2022, but we will try to get her this here or earlier so this can be evaluated. This can be done outpatient, but the patient understands the importance of getting this done. In the meanwhile, the patient is already on ciprofloxacin. Does not look clinically unstable or septic. We will go a head and check repeat [address] Lam appreciate your consult. We will continue following this patient with you as needed. Do not hesitate to call us for any questions. /KALLI Voice ID: [id number] Report ID: [id number]
[2021-11-02] MEDS: GABAPENTIN 100 MG CAP PO SCH ×2 (15:28→20:29)
[2021-11-02] MEDS: allopurinoL 300 MG TAB PO SCH (15:28)
[2021-11-02] MEDS: metroNIDAZOLE 500 MG TABLET PO SCH ×2 (15:28→20:29)
--- NOTE | 2021-11-02 16:53 | P.PN ---
Subjective Date of Service: 11/02/21 Chief Complaint: Diarrhea Patient multiple bouts of diarrhea but stated frequency has reduced. No significant change in serum creatinine. Physical Examination - Vital Signs Temperature: 97.8 F Blood Pressure: 132/67 Pulse: 87 Respirations: 18 Pulse Ox (%): 97 - Physical Exam General: Alert, In no apparent distress, Oriented x3 HEENT: Mucous membr. moist/pink Neck: JVD not distended Respiratory: Clear to auscultation bilaterally, Normal air movement Cardiovascular: No edema, Regular rate/rhythm, Normal S1 S2 Gastrointestinal: Normal bowel sounds, Soft and benign, Non-distended, No tenderness Musculoskeletal: No swelling, No tenderness Integumentary: No rashes, No erythema, No cyanosis Neurological: Normal strength at 5/5 x4 extr - Studies Microbiology Data (last 24 hrs): 11/01/21 05:07 Clean Catch Urine [place] Count - Final No growth. 11/01/21 05:07 Clean Catch Urine - Final No growth. 10/31/21 12:14 Blood - Blood Blood Culture Gram Stain - Final 10/31/21 12:14 Blood - Blood Gram Stain - Final 10/31/21 12:24 Blood - Blood Gram Stain - Final Assessment And Plan - Current Problems (Diagnosis) (1) Acute gastroenteritis Current Visit: Yes Status: Acute (2) Acute worsening of stage 3 chronic kidney disease Current Visit: Yes Status: Acute (3) Atrial fibrillation Current Visit: No Status: Acute (4) Hypertension Current Visit: No Status: Acute (5) Hypothyroidism Current Visit: No Status: Acute (6) Gram negative sepsis Current Visit: Yes Status: Acute - Plan Patient with gram-negative sepsis. CT abdomen and pelvis shows no evidence of pyelonephritis. UA suggested UTI. Urine culture showed no growth. Possible GI bacterial translocation. Patient had mild leukocytosis which has resolved. Continue IV fluid. Patient seen by nephrology. Serum creatinine deemed to be at baseline. Monitor and replete electrolytes Monitor renal function. C. difficile antigen positive but no toxin. stool lactoferrin is pending. Continue IV ciprofloxacin and Flagyl. Follow blood culture organism identification and sensitivity. Continue Eliquis for atrial fibrillation. Monitor for active bleeding Monitor CBC Infectious disease consult.
[2021-11-02] MEDS: CIPROFLOXACIN HCL 250 MG TAB PO SCH (20:29)
[2021-11-02] MEDS: ATORVASTATIN 10 MG TAB PO SCH (20:29)
[2021-11-02] MEDS: APIXABAN 5 MG TABLET PO SCH (20:29)
[2021-11-02] MEDS: METOPROLOL TAR 50 MG TAB PO SCH (20:30)
[2021-11-03] MEDS: NA CHLORIDE 0.9% 1,000 ML IV SCH (02:37)
[2021-11-03] MEDS: LEVOTHYROXINE SOD 0.025 MG TAB PO SCH (05:44)
[2021-11-03] MEDS: PANTOPRAZOLE 40MG TABLET PO SCH (05:44)
[2021-11-03 06:08] LABS: Absolute Lymphocytes (CBC) 1.1 K/uL (0.7-4.9); Hematocrit 27.5 % (36.0-45.0); Lymphocytes % 15.9 % (15.3-44.8); MPV 10.3 fL (7.6-11.3); RBC Red Blood Cell Count 3.01 M/uL (3.86-4.86)
[2021-11-03 06:28] LABS: Albumin 2.4 g/dL (3.4-5.0); Bilirubin Total 0.4 mg/dL (0.2-1.0); Potassium 3.8 mmol/L (3.5-5.1); Protein, Total 6.3 g/dL (6.4-8.2)
--- NOTE | 2021-11-03 06:29 | P.PN ---
Date of Service: 11/03/21 Subjective: Improving, reports 2 soft/loose stools, no blood Slowly feeling better ROS: 10 point ROS as noted above, otherwise negative Physical exam GEN: Alert, orientedx2, NAD HEENT: Normal conjunctiva, sclera anicteric CV: Regular rate and rhythm, no edema Pulm: Nonlabored respirations on room air ABD: Soft, nontender, nondistended Neuro: Normal speech, normal affect Problem List Gram-negative bacteremia, sepsis Acute gastroenteritis KENDRA on CKD 3 Chronic atrial fibrillation Hypertension Hypothyroidism resistant e.coli; cipro changed to rocephin, continue flagyl for now ID consulted cdiff antigen +, toxin -, PCR pending Stool lactoferrin pending stool more formed now h/o recurrent UTIs - more in last year blood: e.coli, Urine: negative ?GI bacterial translocation appetite improving, dc ivf Cr improved, at baseline continue eliquis for afib hgb slowly downtrended patient reports prior mild tinged urine and stool will likely need antibiotics for 10-14 days via IV will discuss with nephro, regarding PICC vs midline VTE: Eliquis Code: Full Dispo: Home, 2 days Time Spent Managing Pts Care (In Minutes): 35
[2021-11-03] MEDS ORDERED: NA CHLORIDE 0.9% 1,000 ML IV SCH (06:35)
[2021-11-03] MEDS ORDERED: POTASSIUM CL SA 10 MEQ TAB PO ONE (09:00)
[2021-11-03] MEDS: METOPROLOL TAR 50 MG TAB PO SCH ×2 (09:24→20:32)
[2021-11-03] MEDS: APIXABAN 5 MG TABLET PO SCH ×2 (09:24→20:33)
[2021-11-03] MEDS: GABAPENTIN 100 MG CAP PO SCH ×3 (09:24→20:32)
[2021-11-03] MEDS: metroNIDAZOLE 500 MG TABLET PO SCH (09:24)
[2021-11-03] MEDS: allopurinoL 300 MG TAB PO SCH (09:24)
[2021-11-03] MEDS: CIPROFLOXACIN HCL 250 MG TAB PO SCH (09:24)
--- NOTE | 2021-11-03 09:53 | EKG ---
Test Date: 2021-10-31 Test Time: 11:25:59 Rolloff Driver: YANA MEASUREMENT RESULTS: Intervals: Rate: 106 HI: QRSD: 142 QT: 386 QTc: 512 [place]: P: HI: QRS: 4 T: 0 INTERPRETIVE STATEMENTS: afib rvr Nonspecific intraventricular block Possible Lateral infarct, age undetermined T wave abnormality, consider inferior ischemia T wave abnormality, consider anterior ischemia Abnormal ECG Compared to ECG 11/22/2019 05:13:44 T-wave abnormality now present Right bundle-branch block no longer present Myocardial infarct finding still present Electronically Signed On 11-03-21 09:50:39 CDT by Mariano Ramirez
[2021-11-03] MEDS: CEFTRIAXONE 2,000 MG in NA CHLORIDE 0.9% 100 ML IV SCH (13:25)
--- NOTE | 2021-11-03 13:52 | P.CNS ---
Date of Consult: 11/03/21 Chief Complaint: Diarrhea History of Present Illness: The patient is a 75-year-old female with a past medical history of atrial fibrillation, hypothyroidism, CKD, and gout who presented to the ED secondary to diarrhea and been ongoing for the past 3 days. She states that her diarrhea has been mostly watery/loosely formed stools. C. difficile culture pending. Blood cultures obtained on 10/31 grew E. coli and 4 out of 4 bottles, repeat cultures are pending. Urine analysis was positive for bacteria and leuk esterase however urine culture showed no growth. Patient was empirically placed on ciprofloxacin and Flagyl, however bacteria growing is resistant to ciprofloxacin. As such Rocephin started. CT abdomen pelvis showed no acute abnormalities. She currently reports diarrhea and nausea. She denies abdominal pain, chest pain, shortness of breath. Allergies Penicillins Allergy (Verified 11/22/19 11:11) Hives/Rash Home Medications: Allopurinol 300 mg PO DAILY 11/22/19 Apixaban [Eliquis] 5 mg PO BID 11/22/19 Furosemide [Lasix*] 20 mg PO BID 11/22/19 Gabapentin [Neurontin*] 100 mg PO TID 11/22/19 Levothyroxine Sodium [Synthroid] 25 mcg PO DAILY 11/22/19 Metoprolol Tartrate [Lopressor] 50 mg PO BID 11/22/19 Omeprazole 20 mg PO DAILY 11/22/19 Simvastatin 20 mg PO BEDTIME 11/22/19 Telmisartan [Micardis] 1 tab PO DAILY 11/01/21 - Past Medical/Surgical History Diabetic: No -: AFib -: HTN -: Hypothyroidism -: Gout -: Neuropathy -: High Cholesterol -: Breast Cancer -: Rt Mastectomy x15 yrs ago -: Cholecystectomy - Social History Smoking Status: Unknown if ever smoked Alcohol use: No CD- Drugs: No Caffeine use: No Review of Systems 10-point ROS is otherwise unremarkable Physical Examination Temp Pulse Resp BP Pulse Ox 96.8 F 102 H 20 141/90 H 97 11/03/21 08:00 11/03/21 09:24 11/03/21 08:00 11/03/21 09:24 11/03/21 08:00 General: Alert, In no apparent distress HEENT: Atraumatic, PERRLA Neck: JVD not distended Respiratory: Clear to auscultation bilaterally, Normal air movement Cardiovascular: Irregular heart rate/rhythm Capillary refill: <2 Seconds Gastrointestinal: Normal bowel sounds, Soft and benign Musculoskeletal: No clubbing, No swelling, No contractures Conclusions/Impression: Antibiotics: Rocephin: urrent Ciprofloxacin: Assessment/plan Urosepsis -Blood cultures obtained on 10/31 grew E. coli in 4-4 bottles. Bacteria sensitive to Rocephin, recommend continuing Rocephin for 10 days duration. Could potentially switch to oral agent after 3 to 4 days of IV antibiotics. However only oral option is Bactrim and patient does have CKD. -Urine analysis grossly positive, however urine culture showed no growth Diarrhea C. difficile culture pending Anemia Continue to monitor H&H Plan of care discussed Dr. Mcbride Need for consultation
[2021-11-03] MEDS: ATORVASTATIN 10 MG TAB PO SCH (20:33)
[2021-11-04 04:31] LABS: Absolute Lymphocytes (CBC) 1.2 K/uL (0.7-4.9); Hematocrit 27.1 % (36.0-45.0); MPV 9.9 fL (7.6-11.3); RBC Red Blood Cell Count 2.96 M/uL (3.86-4.86)
[2021-11-04] MEDS: PANTOPRAZOLE 40MG TABLET PO SCH (05:20)
[2021-11-04] MEDS: LEVOTHYROXINE SOD 0.025 MG TAB PO SCH (05:20)
--- NOTE | 2021-11-04 07:09 | P.PN ---
Date of Service: 11/04/21 Subjective: improving mild cough, fatigue; but improving ROS: 10 point ROS as noted above, otherwise negative Physical exam GEN: Alert, oriented, NAD HEENT: Normal conjunctiva, sclera anicteric CV: Regular rate and rhythm, no edema Pulm: Nonlabored respirations on room air ABD: Soft, nontender, nondistended Neuro: Normal speech, normal affect Problem List Gram-negative bacteremia, sepsis Acute gastroenteritis KENDRA on CKD 3 Chronic atrial fibrillation Hypertension Hypothyroidism resistant e.coli; cipro changed to rocephin, continue flagyl for now; will discuss further with ID, empirically treat for c diff cdiff antigen +, toxin -, PCR pending Stool lactoferrin pending stool more formed now h/o recurrent UTIs - more in last year blood: e.coli, Urine: negative ?GI bacterial translocation Cr improved, at baseline continue eliquis for afib hgb stable will likely need antibiotics for 10-14 days; transition to PO on discharge VTE: Eliquis Code: Full Dispo: Home, ~1 day Time Spent Managing Pts Care (In Minutes): 35
[2021-11-04] MEDS ORDERED: NA CHLORIDE 0.9% 100 ML ONE (08:02)
[2021-11-04] MEDS: METOPROLOL TAR 50 MG TAB PO SCH ×2 (09:59→21:31)
[2021-11-04] MEDS: APIXABAN 5 MG TABLET PO SCH ×2 (10:00→21:31)
[2021-11-04] MEDS: allopurinoL 300 MG TAB PO SCH (10:00)
[2021-11-04] MEDS: GABAPENTIN 100 MG CAP PO SCH ×3 (10:00→21:31)
[2021-11-04] MEDS: CEFTRIAXONE 2,000 MG in NA CHLORIDE 0.9% 100 ML IV SCH (10:01)
--- NOTE | 2021-11-04 17:28 | P.PN ---
Subjective Date of Service: 11/04/21 Chief Complaint: Diarrhea Patient seen and examined at bedside, feeling better today. And about 3 episodes of watery diarrhea today. C. difficile antigen positive, toxin negative. Stool lactoferrin and C. difficile PCR pending. Will start patient on oral vancomycin 125 mg p.o. 4 times daily x10 days. Review of Systems 10-point ROS is otherwise unremarkable Physical Examination - Vital Signs Temperature: 97.1 F Blood Pressure: 140/67 Pulse: 80 Respirations: 16 Pulse Ox (%): 97 - Studies Laboratory Last Values WBC 7.8 K/uL (4.3-10.9) D 11/01/21 05:30 RBC 3.01 M/uL (3.86-4.86) L 11/01/21 05:30 Hgb 9.0 g/dL (12.0-15.0) L 11/01/21 05:30 Hct 27.4 % (36.0-45.0) L 11/01/21 05:30 MCV 91.1 fL (80-100) 11/01/21 05:30 MCH 29.9 pg (27.0-35.0) 11/01/21 05:30 MCHC 32.8 g/dL (32.0-36.0) 11/01/21 05:30 RDW 15.0 % (12.1-15.2) 11/01/21 05:30 Plt Count 115 K/uL (152-406) L D 11/01/21 05:30 MPV 10.0 fL (7.6-11.3) 11/01/21 05:30 Neutrophils % 87.3 % (41.7-73.7) H 11/01/21 05:30 Lymphocytes % 5.7 % (15.3-44.8) L 11/01/21 05:30 Monocytes % 6.8 % (3.3-12.3) 11/01/21 05:30 Eosinophils % 0.0 % (0-4.4) 11/01/21 05:30 Basophils % 0.2 % (0-1.3) 11/01/21 05:30 Absolute Neutrophils 6.8 K/uL (1.8-8.0) 11/01/21 05:30 Segmented Neutrophils 83 % (40-80) H 10/31/21 11:40 Band Neutrophils 7 % (0-1) H 10/31/21 11:40 Absolute Lymphocytes 0.4 K/uL (0.7-4.9) L 11/01/21 05:30 Lymphocytes 8 % (15-42) L 10/31/21 11:40 Monocytes 2 % (0-10) 10/31/21 11:40 Absolute Monocytes 0.5 K/uL (0.1-1.3) 11/01/21 05:30 Absolute Eosinophils 0.0 K/uL (0-0.5) 11/01/21 05:30 Absolute Basophils 0.0 K/uL (0-0.5) 11/01/21 05:30 Platelet Estimate Adeq 10/31/21 11:40 Giant Platelets 1+ 10/31/21 11:40 Hypochromasia 1+ 10/31/21 11:40 Poikilocytosis 1+ 10/31/21 11:40 Anisocytosis 1+ 10/31/21 11:40 Macrocytosis 1+ 10/31/21 11:40 Tear Drop Cells 1+ 10/31/21 11:40 Ovalocytes 1+ 10/31/21 11:40 Morphology Comment Noted (NOT SEEN) 10/31/21 11:40 PT 29.1 SECONDS (9.5-12.5) H 10/31/21 12:24 INR 2.59 10/31/21 12:24 APTT 33.0 SECONDS (24.3-36.9) 11/01/21 05:30 Sodium 140 mmol/L (136-145) 11/01/21 05:30 Potassium 3.3 mmol/L (3.5-5.1) L 11/01/21 05:30 Chloride 108 mmol/L (98-107) H 11/01/21 05:30 Carbon Dioxide 22 mmol/L (21-32) 11/01/21 05:30 Anion Gap 13.3 mEq/L (5.0-15.0) 11/01/21 05:30 BUN 28 mg/dL (7-18) H 11/01/21 05:30 Creatinine 2.84 mg/dL (0.55-1.3) H 11/01/21 05:30 Est GFR (CKD-EPI) 17 ml/min (=/>90) L 11/01/21 05:30 Glucose 136 mg/dL (74-106) H 11/01/21 05:30 Lactic Acid 1.9 mmol/L (0.4-2.0) 10/31/21 12:24 Calcium 8.1 mg/dL (8.5-10.1) L 11/01/21 05:30 Phosphorus 3.0 mg/dL (2.5-4.9) 11/01/21 05:30 Magnesium 1.8 mg/dL (1.8-2.4) 11/01/21 05:30 Total Bilirubin 1.6 mg/dL (0.2-1.0) H 10/31/21 12:24 Direct Bilirubin 0.9 mg/dL (0-0.2) H 10/31/21 12:24 AST 25 U/L (15-37) 10/31/21 12:24 ALT 13 U/L (12-78) 10/31/21 12:24 Alkaline Phosphatase 83 U/L (45-117) 10/31/21 12:24 Troponin I High Sens 37.2 pg/mL (<58.9) 10/31/21 12:24 NT-Pro-B Natriuret Pep 85494 pg/mL (<125) H 10/31/21 12:24 Serum Total Protein 7.0 g/dL (6.4-8.2) 10/31/21 12:24 Albumin 2.7 g/dL (3.4-5.0) L 10/31/21 12:24 Globulin 4.3 g/dL (2.3-3.5) H 10/31/21 12:24 Albumin/Globulin Ratio 0.6 (1.1-1.8) L 10/31/21 12:24 Lipase Cancelled 10/31/21 11:40 Procalcitonin 5.47 ng/mL (<0.050) H 10/31/21 12:24 Urine Color Dk yellow (Yellow) 11/01/21 05:07 Urine Appearance Cloudy (Clear) 11/01/21 05:07 Urine pH 5.5 (5.0-7.0) 11/01/21 05:07 Ur Specific [place] 1.025 (1.005-1.030) 11/01/21 05:07 Glucose (UA)(Auto) Negative (Negative) 06/05/22 05:07 Urine Ketones Negative (Negative) 11/01/21 05:07 Urine Blood 3+ (Negative) H 11/01/21 05:07 Urine Nitrite Negative (Negative) 11/01/21 05:07 Urine Bilirubin Negative (Negative) 11/01/21 05:07 Urine Urobilinogen 0.2 mg/dL (0.2-1.0) 11/01/21 05:07 Ur Leukocyte Esterase 1+ (Negative) H 11/01/21 05:07 Urine RBC 10-20 /HPF (NONE SEEN) H 11/01/21 05:07 Urine WBC Loaded /HPF (<5) H 11/01/21 05:07 Ur Squamous Epith Cells <5 /HPF (NONE SEEN) 11/01/21 05:07 Urine Bacteria >50 /HPF (<20) H 11/01/21 05:07 Fine Granular Casts Few /LPF (NONE SEEN) 11/01/21 05:07 Coarse Granular Casts Few /LPF (NONE SEEN) 11/01/21 05:07 Urine Culture Reflexed Reflexed 11/01/21 05:07 Urine Total Protein 2+ (Negative) H 11/01/21 05:07 C. difficile Ag & Toxin Ag pos : tox neg (NEG : NEG) A 11/01/21 04:39 SARS-CoV-2 Rap RNA(RT-PCR) Negative (NEGATIVE) 10/31/21 12:05 Smear Scan Cancelled 10/31/21 11:40 ABO/Rh Cancelled 10/31/21 12:14 Solid Phase Ab Screen Cancelled 10/31/21 12:14 BBK History Checked Cancelled 10/31/21 12:14 Microbiology Data (last 24 hrs): 10/31/21 12:24 Blood - Blood Anaerobic Blood Culture - Final Escherichia Coli 10/31/21 12:24 Blood - Blood Gram Stain - Final Assessment And Plan - Plan Physical exam: General: Alert, In no apparent distress HEENT: Atraumatic, PERRLA Neck: JVD not distended Respiratory: Clear to auscultation bilaterally, Normal air movement Cardiovascular: Irregular heart rate/rhythm Capillary refill: <2 Seconds Gastrointestinal: Normal bowel sounds, Soft and benign Musculoskeletal: No clubbing, No swelling, No contractures Conclusions/Impression: Antibiotics: Rocephin: 6/6current Oral vancomycin: 6/8current Ciprofloxacin: Assessment/plan Urosepsis -Blood cultures obtained on 10/31 grew E. coli in 4/ bottles. Bacteria sensitive to Rocephin, recommend continuing Rocephin for 10 days duration. Recommend switching to oral Bactrim after 3 to 4 days of IV antibiotics. -Urine analysis grossly positive, however urine culture showed no growth Diarrhea C. difficile antigen positive toxin negative. Stool lactoferrin and C. difficile PCR pending. We will start patient on p.o. vancomycin 125 mg 4 times daily x10 days CKD Creatinine improving. Continue to monitor. Anemia Continue to monitor H&H Plan of care discussed Dr. Mcbride Need for consultation
[2021-11-04] MEDS: VANCOMYCIN ORAL SOLN 250 MG/5 ML OSYR PO SCH ×2 (18:44→23:39)
[2021-11-04] MEDS: ATORVASTATIN 10 MG TAB PO SCH (21:31)
[2021-11-05] MEDS: VANCOMYCIN ORAL SOLN 250 MG/5 ML OSYR PO SCH ×3 (06:01→17:47)
[2021-11-05] MEDS: PANTOPRAZOLE 40MG TABLET PO SCH (06:02)
[2021-11-05] MEDS: LEVOTHYROXINE SOD 0.025 MG TAB PO SCH (06:02)
[2021-11-05 06:28] LABS: MPV 9.4 fL (7.6-11.3); RBC Red Blood Cell Count 2.79 M/uL (3.86-4.86)
--- NOTE | 2021-11-05 06:35 | P.PN ---
Date of Service: 11/05/21 Subjective: improving, stool formed ROS: 10 point ROS as noted above, otherwise negative Physical exam GEN: Alert, oriented, NAD HEENT: Normal conjunctiva, sclera anicteric CV: Regular rate and rhythm, no edema Pulm: Non-labored respirations on room air ABD: Soft, nontender, nondistended Neuro: Normal speech, normal affect Problem List Gram-negative bacteremia, sepsis Acute gastroenteritis KENDRA on CKD 3 Chronic atrial fibrillation Hypertension Hypothyroidism resistant e.coli; cipro changed to rocephin, continue flagyl for now; will discuss further with ID, empirically treat for c diff cdiff antigen +, toxin -, PCR pending Stool lactoferrin pending stool more formed now h/o recurrent UTIs - more in last year blood: e.coli, Urine: negative ?GI bacterial translocation Cr improved, at baseline continue Eliquis for afib hgb stable will need antibiotics for 10-14 days; transition to PO on discharge PO vanc for suspected c diff VTE: Eliquis Code: Full Dispo: Home, ~1 day Time Spent Managing Pts Care (In Minutes): 35
[2021-11-05 06:50] LABS: Magnesium 1.8 mg/dL (1.8-2.4); Potassium 3.9 mmol/L (3.5-5.1)
[2021-11-05] MEDS ORDERED: MAGNESIUM SULFATE 1 gm IVPB 1 GM/100 ML BAG IV ONE (09:00)
[2021-11-05] MEDS ORDERED: POTASSIUM CL SA 10 MEQ TAB PO ONE (09:00)
[2021-11-05] MEDS: APIXABAN 5 MG TABLET PO SCH ×2 (10:48→21:22)
[2021-11-05] MEDS: GABAPENTIN 100 MG CAP PO SCH ×3 (10:48→21:22)
[2021-11-05] MEDS: METOPROLOL TAR 50 MG TAB PO SCH ×2 (10:48→21:22)
[2021-11-05] MEDS: allopurinoL 300 MG TAB PO SCH (10:48)
[2021-11-05] MEDS: CEFTRIAXONE 2,000 MG in NA CHLORIDE 0.9% 100 ML IV SCH (10:49)
--- NOTE | 2021-11-05 14:34 | PN ---
Date of Progress Note: 11/05/2021 Subjective: The patient is seen and examined at bedside. She is doing very well. Denies any compla ints. Physical Examination: Vital signs: Have been reviewed and are stable. General: Her diarrhea is getting better. She was able to eat breakfast. HEENT: Shows atraumatic h ead. LUNGS: Auscultation of lungs revealed bilateral equal air entry. Abdomen: Soft and nontender. Heart: Auscultation of heart reveals regular rate and rhythm. Extremities: Showed no evidence of edema. Laboratory Data: Showing creatinine improving to 1.51 and other electrolytes are stable. CBC showin g anemia of chronic disease with platelet count of 155, which is improving and normal WBC count. Current Medications: Include allopurinol, Eliquis, atorvastatin, gabapentin, metoprolol, pantoprazol e, ceftriaxone, vancomycin 125 mg p.o. q.6 hours, and vitamin D. Impression: 1.Acute on chronic renal insufficiency secondary to sepsis, currently with improving renal function. 2.Resistant Escherichia coli bacteremia. The patient is currently on Rocephin and Infectious Diseas e on the case. 3.Empirically being treated for Clostridium difficile with p.o. vancomycin. 4.History of atrial fibrillation, currently on Eliquis. 5.Anemia of chronic disease. Monitor hemoglobin closely. Plan: The patient's renal function is significantly better. Continue Rocephin. Monitor bacteremia and follow up closely. MANPREET/KALLI Voice ID: [id number] Report ID: [id number]
--- NOTE | 2021-11-05 16:31 | P.PN ---
Subjective Date of Service: 11/05/21 Chief Complaint: Diarrhea Patient seen and examined at bedside, states diarrhea is improving. Review of Systems 10-point ROS is otherwise unremarkable Physical Examination - Vital Signs Temperature: 97.6 F Blood Pressure: 162/83 Pulse: 93 Respirations: 16 Pulse Ox (%): 96 - Studies Laboratory Last Values WBC 7.8 K/uL (4.3-10.9) D 11/01/21 05:30 RBC 3.01 M/uL (3.86-4.86) L 11/01/21 05:30 Hgb 9.0 g/dL (12.0-15.0) L 11/01/21 05:30 Hct 27.4 % (36.0-45.0) L 11/01/21 05:30 MCV 91.1 fL (80-100) 11/01/21 05:30 MCH 29.9 pg (27.0-35.0) 11/01/21 05:30 MCHC 32.8 g/dL (32.0-36.0) 11/01/21 05:30 RDW 15.0 % (12.1-15.2) 11/01/21 05:30 Plt Count 115 K/uL (152-406) L D 11/01/21 05:30 MPV 10.0 fL (7.6-11.3) 11/01/21 05:30 Neutrophils % 87.3 % (41.7-73.7) H 11/01/21 05:30 Lymphocytes % 5.7 % (15.3-44.8) L 11/01/21 05:30 Monocytes % 6.8 % (3.3-12.3) 11/01/21 05:30 Eosinophils % 0.0 % (0-4.4) 11/01/21 05:30 Basophils % 0.2 % (0-1.3) 11/01/21 05:30 Absolute Neutrophils 6.8 K/uL (1.8-8.0) 11/01/21 05:30 Segmented Neutrophils 83 % (40-80) H 10/31/21 11:40 Band Neutrophils 7 % (0-1) H 10/31/21 11:40 Absolute Lymphocytes 0.4 K/uL (0.7-4.9) L 11/01/21 05:30 Lymphocytes 8 % (15-42) L 10/31/21 11:40 Monocytes 2 % (0-10) 10/31/21 11:40 Absolute Monocytes 0.5 K/uL (0.1-1.3) 11/01/21 05:30 Absolute Eosinophils 0.0 K/uL (0-0.5) 11/01/21 05:30 Absolute Basophils 0.0 K/uL (0-0.5) 11/01/21 05:30 Platelet Estimate Adeq 10/31/21 11:40 Giant Platelets 1+ 10/31/21 11:40 Hypochromasia 1+ 10/31/21 11:40 Poikilocytosis 1+ 10/31/21 11:40 Anisocytosis 1+ 10/31/21 11:40 Macrocytosis 1+ 10/31/21 11:40 Tear Drop Cells 1+ 10/31/21 11:40 Ovalocytes 1+ 10/31/21 11:40 Morphology Comment Noted (NOT SEEN) 10/31/21 11:40 PT 29.1 SECONDS (9.5-12.5) H 10/31/21 12:24 INR 2.59 10/31/21 12:24 APTT 33.0 SECONDS (24.3-36.9) 11/01/21 05:30 Sodium 140 mmol/L (136-145) 11/01/21 05:30 Potassium 3.3 mmol/L (3.5-5.1) L 11/01/21 05:30 Chloride 108 mmol/L (98-107) H 11/01/21 05:30 Carbon Dioxide 22 mmol/L (21-32) 11/01/21 05:30 Anion Gap 13.3 mEq/L (5.0-15.0) 11/01/21 05:30 BUN 28 mg/dL (7-18) H 11/01/21 05:30 Creatinine 2.84 mg/dL (0.55-1.3) H 11/01/21 05:30 Est GFR (CKD-EPI) 17 ml/min (=/>90) L 11/01/21 05:30 Glucose 136 mg/dL (74-106) H 11/01/21 05:30 Lactic Acid 1.9 mmol/L (0.4-2.0) 10/31/21 12:24 Calcium 8.1 mg/dL (8.5-10.1) L 11/01/21 05:30 Phosphorus 3.0 mg/dL (2.5-4.9) 11/01/21 05:30 Magnesium 1.8 mg/dL (1.8-2.4) 11/01/21 05:30 Total Bilirubin 1.6 mg/dL (0.2-1.0) H 10/31/21 12:24 Direct Bilirubin 0.9 mg/dL (0-0.2) H 10/31/21 12:24 AST 25 U/L (15-37) 10/31/21 12:24 ALT 13 U/L (12-78) 10/31/21 12:24 Alkaline Phosphatase 83 U/L (45-117) 10/31/21 12:24 Troponin I High Sens 37.2 pg/mL (<58.9) 10/31/21 12:24 NT-Pro-B Natriuret Pep 76138 pg/mL (<125) H 10/31/21 12:24 Serum Total Protein 7.0 g/dL (6.4-8.2) 10/31/21 12:24 Albumin 2.7 g/dL (3.4-5.0) L 10/31/21 12:24 Globulin 4.3 g/dL (2.3-3.5) H 10/31/21 12:24 Albumin/Globulin Ratio 0.6 (1.1-1.8) L 10/31/21 12:24 Lipase Cancelled 10/31/21 11:40 Procalcitonin 5.47 ng/mL (<0.050) H 10/31/21 12:24 Urine Color Dk yellow (Yellow) 11/01/21 05:07 Urine Appearance Cloudy (Clear) 11/01/21 05:07 Urine pH 5.5 (5.0-7.0) 11/01/21 05:07 Ur Specific [place] 1.025 (1.005-1.030) 11/01/21 05:07 Glucose (UA)(Auto) Negative (Negative) 11/01/21 05:07 Urine Ketones Negative (Negative) 11/01/21 05:07 Urine Blood 3+ (Negative) H 11/01/21 05:07 Urine Nitrite Negative (Negative) 11/01/21 05:07 Urine Bilirubin Negative (Negative) 11/01/21 05:07 Urine Urobilinogen 0.2 mg/dL (0.2-1.0) 11/01/21 05:07 Ur Leukocyte Esterase 1+ (Negative) H 11/01/21 05:07 Urine RBC 10-20 /HPF (NONE SEEN) H 11/01/21 05:07 Urine WBC Loaded /HPF (<5) H 11/01/21 05:07 Ur Squamous Epith Cells <5 /HPF (NONE SEEN) 11/01/21 05:07 Urine Bacteria >50 /HPF (<20) H 11/01/21 05:07 Fine Granular Casts Few /LPF (NONE SEEN) 11/01/21 05:07 Coarse Granular Casts Few /LPF (NONE SEEN) 11/01/21 05:07 Urine Culture Reflexed Reflexed 11/01/21 05:07 Urine Total Protein 2+ (Negative) H 11/01/21 05:07 Stool Lactoferrin <30.0 mcg/mL (<30.0) 11/01/21 09:38 C. difficile Ag & Toxin Ag pos : tox neg (NEG : NEG) A 11/01/21 04:39 SARS-CoV-2 Rap RNA(RT-PCR) Negative (NEGATIVE) 10/31/21 12:05 Smear Scan Cancelled 10/31/21 11:40 ABO/Rh Cancelled 10/31/21 12:14 Solid Phase Ab Screen Cancelled 10/31/21 12:14 BBK History Checked Cancelled 10/31/21 12:14 Microbiology Data (last 24 hrs): 10/31/21 12:24 Blood - Blood Aerobic Blood Culture - Final Escherichia Coli 10/31/21 12:24 Blood - Blood Anaerobic Blood Culture - Final Escherichia Coli 10/31/21 12:24 Blood - Blood Gram Stain - Final 11/01/21 04:39 Stool Clostridioides difficile (PCR) - Final Assessment And Plan - Plan Physical exam: General: Alert, In no apparent distress HEENT: Atraumatic, PERRLA Neck: JVD not distended Respiratory: Clear to auscultation bilaterally, Normal air movement Cardiovascular: Irregular heart rate/rhythm Capillary refill: <2 Seconds Gastrointestinal: Normal bowel sounds, Soft and benign Musculoskeletal: No clubbing, No swelling, No contractures Conclusions/Impression: Antibiotics: Rocephin: urrent Oral vancomycin: 8current Ciprofloxacin: Assessment/plan Urosepsis -Blood cultures obtained on 10/31 grew E. coli in 4/4 bottles. Bacteria sensitive to Rocephin. Recommend switching to oral Bactrim after 3 to 4 days of IV antibiotics until diarrhea improves. Total antibiosis duration of 14 days. -Urine analysis grossly positive, however urine culture showed no growth Diarrhea C. difficile antigen positive toxin negative. Stool lactoferrin less than 30, C. difficile PCR negativr for toxin B. We will start patient on p.o. vancomycin 125 mg 4 times daily x10 days CKD Creatinine improving. Continue to monitor. Anemia Continue to monitor H&H Plan of care discussed Dr. Mcbride Need for consultation
[2021-11-05] MEDS: ATORVASTATIN 10 MG TAB PO SCH (21:22)
[2021-11-06 01:37] VITALS: O2SAT 97
[2021-11-06 06:01] LABS: Hematocrit 25.3 % (36.0-45.0); MPV 9.1 fL (7.6-11.3); RBC Red Blood Cell Count 2.82 M/uL (3.86-4.86)
[2021-11-06] MEDS: PANTOPRAZOLE 40MG TABLET PO SCH (06:16)
[2021-11-06] MEDS: LEVOTHYROXINE SOD 0.025 MG TAB PO SCH (06:16)
[2021-11-06] MEDS: VANCOMYCIN ORAL SOLN 250 MG/5 ML OSYR PO SCH ×3 (06:16→12:10)
[2021-11-06 06:27] LABS: Magnesium 2.1 mg/dL (1.8-2.4); Potassium 4.1 mmol/L (3.5-5.1)
[2021-11-06] MEDS ORDERED: BENZONATATE 100 MG CAP PO PRN (07:57)
[2021-11-06] MEDS ORDERED: SIMETHICONE 125 MG TAB PO PRN (07:58)
[2021-11-06] MEDS: GABAPENTIN 100 MG CAP PO SCH ×2 (08:21→13:05)
[2021-11-06] MEDS: APIXABAN 5 MG TABLET PO SCH (08:21)
[2021-11-06] MEDS: CEFTRIAXONE 2,000 MG in NA CHLORIDE 0.9% 100 ML IV SCH (08:21)
[2021-11-06] MEDS: allopurinoL 300 MG TAB PO SCH (08:21)
[2021-11-06] MEDS: METOPROLOL TAR 50 MG TAB PO SCH (08:21)
--- NOTE | 2021-11-06 10:00 | RAD REPORT ---
EXAM DESCRIPTION: [facility] Single View11/06/2021 9:39 am CLINICAL HISTORY: Cough COMPARISON: October 31, 2021 FINDINGS: The lungs appear clear of acute infiltrate. The heart is mildly to moderately enlarged. Upper lobe vessels are prominent indicative of pulmonary venous hypertension
[2021-11-06 12:58] VITALS: BP 141/78; TEMP 97.8
--- NOTE | 2021-11-06 14:22 | PN ---
Date of Progress Note: 11/06/2021 Subjective: The patient was seen and examined at bedside. She is doing okay at this time. No overn ight events were noted. Vital signs have been reviewed and are stable. Objective: General examination: She appears in no acute distress. HEENT: Shows atraumatic head. Lungs: Clear. Abdomen: Soft. Extremities: Without evidence of edema. Laboratory Data: Showing creatinine improving to 1.5. CBC showing stable hemoglobin, hematocrit, an d platelet count. Culture reports have been reviewed in detail. Impression: 1.Escherichia coli bacteremia, improved. Repeat cultures were negative. 2.Clostridium difficile being empirically treated, but currently improved. 3.Acute kidney injury secondary to dehydration, improving. 4.Pneumonia, improving at this time. Plan: The patient is overall doing okay. Continue all medications and plan of care. She is okay to be discharged from Nephrology standpoint. Continue Eliquis for atrial fibrillation. Avoid further hypotension and nephrotoxins and will follow up. VV/MODL Voice ID: [id number] Report ID: [id number]
--- NOTE | 2021-11-06 16:46 | PN ---
Subjective: The patient is sitting in bed. Denies any headache, nausea, vomiting, chest pain, abdom inal pain, constipation, diarrhea. Currently, on Rocephin and vancomycin. Blood cultures from 10/31 growing E coli. Objective: Vital Signs: Temperature 97, pulse 88, respirations 18, blood pressure 171/90. Lungs: Basal crackles. Heart: S1, S2. Regular. Abdomen: Soft, nontender. Bowel sounds present. Extremities: No edema. Laboratory Data: WBC 7.7, hemoglobin 8.4, platelets are 187. Chemistry shows sodium 142, potassium 4.1, chloride 112, bicarb 25, BUN 15, creatinine 1.5, glucose is 102. Urine culture was noted with W . Blood cultures growing E coli. On 10/31 and 11/02, blood cultures are negative to date. The raven ordaz is currently being treated with Rocephin and vancomycin. Assessment And Plan: Urinary tract infection and bacteremia secondary to Escherichia coli. Repeat b lood cultures are negative. Diarrhea, Clostridium difficile negative. Antigen positive and toxin ne gative. We will continue p.o. vancomycin. Continue antibiotic for 14 days for bacteremia. We will follow the patient closely. No other recommendation at this time. NF/MODL Voice ID: [id number] Report ID: [id number]
--- NOTE | 2021-11-08 22:20 | P.DS ---
Admission Date: 11/01/21 Discharge Date: 11/06/21 Disposition: ROUTINE DISCHARGE Discharge Condition: GOOD Reason for Admission: Diarrhea Consultations: Infectious Disease Nephrology - Nancy Staton Dada Brief History of Present Illness: 75yo M, PMH: chronic Afib, hypothyroidism, CKD, gout Presented to ED with diarrhea x3 days. Progressively worsening watery diarrhea. Associated with nausea/vomiting. She reported seeing blood staining on the toilet paper last night and believes it is due to excoriations from multiple diarrhea episodes. Blood work in the ED revealed elevated creatinine up to 2.8, mild leukocytosis. CT abdomen and pelvis is unremarkable. Admitted for further evaluation/management Hospital Course: Problem List Gram-negative bacteremia, sepsis Acute gastroenteritis KENDRA on CKD 3 Chronic atrial fibrillation Hypertension Hypothyroidism Patient was empirically treated with antiboitics to cover for gastroenteritis and possible UTI. There was bacteria in urine, but culture did not grow anything. Blood cultures grew E.coli. Infectious disease was consulted and recommended treatement with IV antibiotics and transition to oral bactrim after 4 days of IV. Patient had improvement of her symptoms throughout the hospitalization. C.diff testing was done and antigen positive, toxin negative. She was empirically treated for c.diff while awaiting PCR results - which resulted negative. Discussed with ID, and recommended continue treatment with oral vancomycin. She was noted to have a temporary worsening of her renal function due to the dehydration / infection. Her diuretic was held during hospitalization. Her renal function improved and is to resume her diuretic on discharge. Recommend a colonoscopy in the next few months to evaluate for any pathology that would place her at risk for this infection. She has had multiple UTIs in the past as well. Follow up: PCP within 1 week Nephrology as scheduled in the next 1-2 weeks. Vital Signs/Physical Exam: Temp Pulse Resp BP Pulse Ox 97.8 F 82 16 141/78 H 96 11/06/21 12:00 11/06/21 12:00 11/06/21 12:00 11/06/21 12:00 11/06/21 12:00 Physical exam GEN: Alert, oriented, NAD HEENT: Normal conjunctiva, sclera anicteric CV: Regular rate and rhythm, no edema Pulm: Non-labored respirations on room air ABD: Soft, nontender, nondistended Neuro: Normal speech, normal affect Laboratory Data at Discharge: WBC 7.7 K/uL (4.3-10.9) 11/06/21 05:36 Hgb 8.4 g/dL (12.0-15.0) L 11/06/21 05:36 Hct 25.3 % (36.0-45.0) L 11/06/21 05:36 Plt Count 187 K/uL (152-406) D 11/06/21 05:36 PT 29.1 SECONDS (9.5-12.5) H 10/31/21 12:24 INR 2.59 10/31/21 12:24 APTT 33.0 SECONDS (24.3-36.9) 11/01/21 05:30 Sodium 142 mmol/L (136-145) 11/06/21 05:36 Potassium 4.1 mmol/L (3.5-5.1) 11/06/21 05:36 BUN 15 mg/dL (7-18) 11/06/21 05:36 Creatinine 1.50 mg/dL (0.55-1.3) H 11/06/21 05:36 Glucose 102 mg/dL (74-106) 11/06/21 05:36 Phosphorus 3.0 mg/dL (2.5-4.9) 11/01/21 05:30 Magnesium 2.1 mg/dL (1.8-2.4) 11/06/21 05:36 Total Bilirubin 0.4 mg/dL (0.2-1.0) 11/03/21 05:35 AST 23 U/L (15-37) 11/03/21 05:35 ALT 18 U/L (12-78) 11/03/21 05:35 Alkaline Phosphatase 70 U/L (45-117) 11/03/21 05:35 Lipase Cancelled 10/31/21 11:40 Home Medications: Allopurinol 300 mg PO DAILY 11/22/19 Apixaban [Eliquis] 5 mg PO BID 11/22/19 Furosemide [Lasix*] 20 mg PO BID 11/22/19 Gabapentin [Neurontin*] 100 mg PO TID 11/22/19 Levothyroxine Sodium [Synthroid] 25 mcg PO DAILY 11/22/19 Metoprolol Tartrate [Lopressor] 50 mg PO BID 11/22/19 Omeprazole 20 mg PO DAILY 11/22/19 Simvastatin 20 mg PO BEDTIME 11/22/19 Telmisartan [Micardis] 1 tab PO DAILY 11/01/21 Benzonatate [Tessalon Perle] 100 mg PO TID PRN #15 cap 11/06/21 Smz./Tmp. [Bactrim Ds 800 MG/160 MG] 1 each PO DAILY 10 Days #10 tab 11/06/21 Vancomycin HCl [Vancocin HCl] 125 mg PO Q6H 10 Days #40 capsule 11/06/21 New Medications: Smz./Tmp. [Bactrim Ds 800 MG/160 MG] 1 each PO DAILY 10 Days #10 tab Benzonatate [Tessalon Perle] 100 mg PO TID PRN #15 cap PRN Reason: Cough Vancomycin HCl [Vancocin HCl] 125 mg PO Q6H 10 Days #40 capsule Physician Discharge Instructions: Patient was empirically treated with antiboitics to cover for gastroenteritis and possible UTI. There was bacteria in urine, but culture did not grow anything. Blood cultures grew E.coli. Infectious disease was consulted and recommended treatement with IV antibiotics and transition to oral bactrim after 4 days of IV. Patient had improvement of her symptoms throughout the hospitalization. C.diff testing was done and antigen positive, toxin negative. She was empirically treated for c.diff while awaiting PCR results - which resulted negative. Discussed with ID, and recommended continue treatment with oral vancomycin. She was noted to have a temporary worsening of her renal function due to the dehydration / infection. Her diuretic was held during hospitalization. Her renal function improved and is to resume her diuretic on discharge. Recommend a colonoscopy in the next few months to evaluate for any pathology that would place her at risk for this infection. She has had multiple UTIs in the past as well. Follow up: PCP within 1 week Nephrology as scheduled in the next 1-2 weeks. Followup: NONE,NONE [Primary Care Provider] - Time spent managing pt's care (in minutes): 40
== END 2021-11-06 14:30 | disposition home or self-care (01) | DRG 871 ==
LOC: ER 11:20 → ERHOLD 13:29 → 2ND 14:56 → OBSVTOIN 11-01 10:25
PROVIDERS: ADMIT Internal Medicine; ATTEND Hospitalist
DX: A41.51 Sepsis due to Escherichia coli [E. coli] (principal); J18.9 Pneumonia, unspecified organism; I48.19 Other persistent atrial fibrillation; A04.72 Enterocolitis due to Clostridium difficile, not specified as recurrent; N18.4 Chronic kidney disease, stage 4 (severe); N17.9 Acute kidney failure, unspecified; N39.0 Urinary tract infection, site not specified; E87.6 Hypokalemia; E86.0 Dehydration; D63.8 Anemia in other chronic diseases classified elsewhere; E03.9 Hypothyroidism, unspecified; I12.9 Hypertensive chronic kidney disease with stage 1 through stage 4 chronic kidney disease, or unspecified chronic kidney disease; E78.00 Pure hypercholesterolemia, unspecified; Z20.822 Contact with and (suspected) exposure to COVID-19; Z85.3 Personal history of malignant neoplasm of breast; Z90.11 Acquired absence of right breast and nipple; I25.2 Old myocardial infarction
CPT/HCPCS: 36415; 71045; 74176; 80048; 80053; 80076; 81003; 81015; 82728; 83540; 83605; 83631; 83735; 83880; 84100; 84132; 84145; 84466; 84484; 85025; 85027; 85044; 85610; 85730; 87040; 87077; 87086; 87088; 87186; 87205; 87324; 87449; 87493; 87804; 93005; 96365; 96366; 96375; 97161; 99285; G0378; J0696; J0744; J2405; J3475; J3490; J7030; Q5106; U0003

== ENCOUNTER 2023-01-21 10:42 | Emergency (ER) | payer OTHER ==
--- OUTSIDE RECORDS SUMMARY | 2023-01-21 10:47 | XMS REPORT | Continuity of Care Document ---
:1945 Author Organization [facility] t Address [address] [place] [address] [place] [id number] Care Team Providers Name Role Phone PCP, PATIENT DOES NOT HAVE A Primary Care Physician UnavailPorfirio Dee Attending Clinician Unavailable Joceline Jones Attending Clinician Unavailable Raven Hdez Attending Clinician Unavailable [email or web address] Attending Clinician Unavailable CONOR MCKEON Attending Clinician Unavailable Khloe Eason PTA Attending Clinician Unavailable Conor Mckeon MD Attending Clinician Nilesh Eason PTA Attending Clinician Unavailable Kelle Patiño PT Attending Clinician Unavailable Doctor Unassigned, [place] Attending Clinician Unavailable Nohemy Castellano MD Attending Clinician NOHEMY CASTELLANO Attending Clinician Unavailable [email or web address] Admitting Clinician Unavailable NOHEMY CASTELLANO Admitting Clinician Unavailable Payers Payer Name Policy Type Policy Number Effective Date Expiration Date Lukas LOZANO [id number] 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) [facility] [id number] 2021-05-30spring 00:00:00 [employer] C1 [id number] Common Medicare Replace Spirit - [facility] C1 [id number] Common Medicare Replace Spirit - [facility] Problems Condition Condition Condition Status Onset Resolution Last Treating Co mments Source Name Details Category Date Date Treatment Clinician Date No known No known Disease Unive rs active active ity of problems problems [facility] Hypothyroi Hypothyroi Problem C o[facility]ast [facility] d d Spirit [facility] [id number] Primary Problem Commo n osteoarthr Spirit itis of - [facility]I both knees [facility] Cancer Cancer Problem Common Spirit [facility] [id number] Polyp of Problem Commo n stomach [facility] [id number] Chronic Problem Common gout of Spirit multiple - CHI sites, [facility] [id number] Other Problem Common obesity Spirit due to - [facility]I excess [facility] [id number] Body mass Problem Com mon index Spirit [BMI] - CHI 32.0-32.9, [facility] [id number] Atrial Problem Common fibrillati Spirit on, - [facility]I unspecifie [facility] [id number] Hyperlipid Problem Com mon emia, Spirit unspecifie - [facility]I d hyperlipid [facility] emia [facility] [id number] Coronary Problem Com mon 107 artery Spirit disease - [facility] involving [facility] coronary Medical artery of [facility] [place] heart without angina pectoris [id number] Gastroesop Problem Co mmon hageal Spirit reflux - CHI disease, esophagiti [facility] s presence Medica l not Center specified [id number] Elevated Problem Comm on brain Spirit natriureti - [facility]I c peptide St (BNP) [facility] [id number] Hyperglyce Problem Com mon mohit Spirit - [facility] Gallstones Gallstones Problem C ommon Spirit - [facility] [id number] Pain in Problem Common left Spirit shoulder - [facility] [id number] Acquired Problem Comm on hypothyroi Spirit dism [facility] Hepatitis Hepatitis Problem Com mon Spirit - [facility] [id number] Left arm Problem Comm on pain [facility] [id number] Essential Problem Comm on hypertensi Spirit on [facility] [id number] Hypomagnes Problem Co mmon emia [facility] [id number] Abnormal Problem Commo n kidney Spirit function [facility] [id number] Hypokalemi Problem Com mon a Spirit [facility] [id number] 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 - [facility] is without [facility] pathologic Medica l al Center fracture Heart Heart Problem Common disease disease [facility] [id number] Encounter Problem Com mon for Spirit screening - [facility] mammogram [facility] malignant Medical neoplasm Center of breast [id number] Chronic Problem Commo n gout Spirit without - [facility]I tophus, St unspecifie [facility] d cause, Medical unspecifie Center d site Kidney Kidney Problem Common stone stones [facility] [id number] Thrombocyt Problem Co mmon openia [facility] [id number] Anemia in Problem Com mon chronic Spirit kidney - CHI disease [facility] Personal History of Problem Com mon history of right Spirit primary breast - [facility] malignant cancer [facility] [id number] Chronic Problem Commo n kidney Spirit disease, - CHI stage 4 (severe) [facility] Allergies, Adverse Reactions, Alerts Allergy Allergy Status Severity Reaction(s) Onset Inactive Treating Comm ents Source Name Type Date Date Clinician Penicill Propensi Active Unknown - As a Uni vers in ty to See comments 10-08 child ity of adverse 00:00: [place] reaction 00 Medical s Branch PENICILL DRUG Active Unknown-Cmnt Un melvina IN INGREDI 10-08 ity of 00:00: [place] 00 Medical Branch [facility] Propensi Active Rash [facility] ins ty to 12-24 [facility] adverse 00:00: Medical reaction 00 Center s 0 Drug Active rash,itching Comm on allergy [facility] Social History Social Habit Start Date Stop Date Quantity Comments Source History of Common Spirit - Tobacco Use [facility] Exposure to 2021-09-282021-10-08 Not sure University of SARS-CoV-2 00:00:00 10:26:00 [facility] (event) Branch Tobacco use and 2021-10-08 2021-10-08 Never used Universit y of exposure 00:00:00 00:00:00 [facility] Alcohol intake 2013-12-27 2013-12-[address] [facility] 00:00:00 00:00:00 non-drinker of Medical Ce nter alcohol (finding) Sex Assigned At [address] [facility] 00:00:00 00:00:00 [facility] Smoking Status Start Date Stop Date Source Never Smoker Common Spirit - [facility] Smoker, current status 2021-10-08 00:00:00 Yasmeene [facility] unknown Branch Medications Ordered Filled Start Stop Current Ordering Indication Dosage Frequency Signature Comments Components Source Medication Medication Date Date Medication? Clinician (SIG) Name Name methylPREDN methylPREDN 2021-05- No QD methylPRED ISolone 4 ISolone 4 2-30 06-03 NISolone 4 MG MG 00:00: 00:00 MG 00 :00 methylPREDN methylPREDN 2021-05- No QD methylPRED ISolone 4 ISolone 4 2-30 -05 NISolone 4 MG MG 00:00: 00:00 MG 00 :00 Benzonatate Benzonatate 2021- No TID Benzonatat 200 MG 200 MG 12-15 e 200 MG 00:00: 00:00 00 :00 No known No Univers medications 5-12 ity of 10:43: [address] No known No Univers medications 5-12 ity of 10:43: [address] No known No Univers medications 5-12 ity of 10:43: [address] No known No Univers medications 5-12 ity of 10:43: [address] No known No Univers medications 5-12 ity of 10:43: [address] No known No Univers medications 5-12 ity of 10:43: [address] potassium Yes 10meq Take [address] chloride 7-30 mEq by [facility] (MICRO-K) 10:15: mouth as Medi krzysztof 10 mEq CR 49 needed. [place] capsule furosemide Yes 20mg Take [address] (LASIX) 20 7-30 by mouth [facility] MG tablet 10:15: as needed. Me dical 49 [place] aspirin 325 Yes 325mg QD Take [address] MG EC 7-30 mg by [facility] tablet 10:15: mouth Medical 49 daily. [place] gabapentin Yes 100mg QD Take [address] (NEURONTIN) 7-30 mg by [facility] 100 MG 10:15: mouth Medical capsule 49 daily. [place] metoprolol Yes 50mg QD Take [address] (LOPRESSOR) 7-30 by mouth Luke s 50 MG 10:15: daily. Medical tablet 49 [facility] digoxin Yes 250ug QD Take 250 [facility]I S t (LANOXIN) 7-30 mcg by [facility] 0.25 MG 10:15: mouth Medical tablet 49 daily. [facility] thyroid, Yes 30mg QD Take [address] pork, 7-30 by mouth [facility] (ARMOUR 10:15: daily. Medical THYROID) 60 49 Center mg Tab Eliquis Eliquis Yes Raven 1 tablet Comm on Millender [facility] Furosemide Furosemide Yes Raven 1 tablet Common Millender [facility] Gabapentin Gabapentin Yes Raven 1 [facility] Allopurinol Allopurinol Yes Raven 1 tablet Common Millender [facility] Metoprolol Metoprolol Yes Raven 1 tablet Common Tartrate Tartrate Millender with food [facility] B-12 B-12 Yes Raven as Common Millender directed [facility] Levothyroxi Levothyroxi Yes Raven 1 tablet Common ne Sodium ne Sodium Millender in the Spirit morning on - CHI an empty St stomach [facility] Rupert Rupert Yes Raven 1 tablet Common Thyroid Thyroid Millender on an Spi rit empty - CHI stomach [facility] Biotin Biotin Yes Raven 1 tablet Common Millender [facility] MethylPREDN MethylPREDN Yes Raven 1 tablet Common ISolone ISolone Millender with food Spirit or milk - CH[facility] Omeprazole Omeprazole Yes Raven 1 capsule Common Millender Spirit [facility] Lisinopril Lisinopril Yes Raven 1 tablet Common Millender [facility] Probiotic Probiotic Yes Raven as Comm on Millender directed [facility] Vitamin D3 Vitamin D3 Yes Raven not Co mmon Millender defined [facility] Simvastatin Simvastatin Yes Raven 1 tablet Common Millender in the [facility] Furosemide Furosemide No 1{table BID Furosemide 20 MG 20 MG t} 20 MG Levothyroxi Levothyroxi No QD Levothyrox ne Sodium ne Sodium ine Sodium 50 MCG 50 MCG 50 MCG Metoprolol Metoprolol No 1{table BID Metoprolol Tartrate 50 Tartrate 50 t_with_ Tartrate MG MG food} 50 MG Biotin 5000 Biotin 5000 No 1{table BID Biotin MCG MCG t} 5000 MCG Simvastatin Simvastatin No 1{table QD Simvastati 20 MG 20 MG t_in_th n 20 MG e_eveni ng} Omeprazole Omeprazole No 1{capsu QD Omeprazole 20 mg 20 mg le} 20 mg Gabapentin Gabapentin No 1{capsu TID Gabapentin 100 mg 100 mg le} 100 mg Eliquis 5 Eliquis 5 No 1{table BID Eliquis 5 MG MG t} MG Levothyroxi Levothyroxi No QD Levothyrox ne Sodium ne Sodium ine Sodium 50 MCG 50 MCG 50 MCG Allopurinol Allopurinol No 1{table QD Allopurino 300 MG 300 MG t} l 300 MG Micardis 80 Micardis 80 No 1{table QD Micardis MG MG t} 80 MG Furosemide Furosemide No 1{table BID Furosemide 20 MG 20 MG t} 20 MG Levothyroxi Levothyroxi No QD Levothyrox ne Sodium ne Sodium ine Sodium 50 MCG 50 MCG 50 MCG Metoprolol Metoprolol No 1{table BID Metoprolol Tartrate 50 Tartrate 50 t_with_ Tartrate MG MG food} 50 MG Biotin 5000 Biotin 5000 No 1{table BID Biotin MCG MCG t} 5000 MCG Furosemide Furosemide No 1{table BID Furosemide 20 MG 20 MG t} 20 MG Levothyroxi Levothyroxi No QD Levothyrox ne Sodium ne Sodium ine Sodium 50 MCG 50 MCG 50 MCG Levothyroxi Levothyroxi No QD Levothyrox ne Sodium ne Sodium ine Sodium 50 MCG 50 MCG 50 MCG Gabapentin Gabapentin No 1{capsu TID Gabapentin 100 mg 100 mg le} 100 mg Micardis 80 Micardis 80 No 1{table QD Micardis MG MG t} 80 MG Simvastatin Simvastatin No 1{table QD Simvastati 20 MG 20 MG t_in_th n 20 MG e_eveni ng} Biotin 5000 Biotin 5000 No 1{table BID Biotin MCG MCG t} 5000 MCG Metoprolol Metoprolol No 1{table BID Metoprolol Tartrate 50 Tartrate 50 t_with_ Tartrate MG MG food} 50 MG Allopurinol Allopurinol No 1{table QD Allopurino 300 MG 300 MG t} l 300 MG Eliquis 5 Eliquis 5 No 1{table BID Eliquis 5 MG MG t} MG Omeprazole Omeprazole No 1{capsu QD Omeprazole 20 mg 20 mg le} 20 mg Furosemide Furosemide No Furosemide 20 mg 20 mg 20 mg Levothyroxi Levothyroxi No Levothyrox ne Sodium ne Sodium ine Sodium 50 MCG 50 MCG 50 MCG Eliquis 5 Eliquis 5 No 1{table BID Eliquis 5 MG MG t} MG Gabapentin Gabapentin No 1{capsu TID Gabapentin 100 mg 100 mg le} 100 mg Levothyroxi Levothyroxi No QD Levothyrox ne Sodium ne Sodium ine Sodium 50 MCG 50 MCG 50 MCG Simvastatin Simvastatin No Simvastati 20 mg 20 mg n 20 mg Micardis 80 Micardis 80 No 1{table QD Micardis MG MG t} 80 MG Metoprolol Metoprolol No Metoprolol Tartrate 50 Tartrate 50 Tartrate mg mg 50 mg Biotin 5000 Biotin 5000 No 1{table BID Biotin MCG MCG t} 5000 MCG Omeprazole Omeprazole No Omeprazole 20 mg 20 mg 20 mg Allopurinol Allopurinol No Allopurino 300 mg 300 mg l 300 mg Furosemide Furosemide No Furosemide 20 mg 20 mg 20 mg Levothyroxi Levothyroxi No Levothyrox ne Sodium ne Sodium ine Sodium 50 MCG 50 MCG 50 MCG Eliquis 5 Eliquis 5 No 1{table BID Eliquis 5 MG MG t} MG Gabapentin Gabapentin No 1{capsu TID Gabapentin 100 mg 100 mg le} 100 mg Levothyroxi Levothyroxi No QD Levothyrox ne Sodium ne Sodium ine Sodium 50 MCG 50 MCG 50 MCG Simvastatin Simvastatin No Simvastati 20 mg 20 mg n 20 mg Micardis 80 Micardis 80 No 1{table QD Micardis MG MG t} 80 MG Metoprolol Metoprolol No Metoprolol Tartrate 50 Tartrate 50 Tartrate mg mg 50 mg Biotin 5000 Biotin 5000 No 1{table BID Biotin MCG MCG t} 5000 MCG Omeprazole Omeprazole No Omeprazole 20 mg 20 mg 20 mg Allopurinol Allopurinol No Allopurino 300 mg 300 mg l 300 mg Furosemide Furosemide No Furosemide 20 mg 20 mg 20 mg Levothyroxi Levothyroxi No Levothyrox ne Sodium ne Sodium ine Sodium 50 MCG 50 MCG 50 MCG Eliquis 5 Eliquis 5 No 1{table BID Eliquis 5 MG MG t} MG Gabapentin Gabapentin No Gabapentin 100 mg 100 mg 100 mg Levothyroxi Levothyroxi No QD Levothyrox ne Sodium ne Sodium ine Sodium 50 MCG 50 MCG 50 MCG Simvastatin Simvastatin No Simvastati 20 mg 20 mg n 20 mg Micardis 80 Micardis 80 No 1{table QD Micardis MG MG t} 80 MG Metoprolol Metoprolol No Metoprolol Tartrate 50 Tartrate 50 Tartrate mg mg 50 mg Biotin 5000 Biotin 5000 No 1{table BID Biotin MCG MCG t} 5000 MCG Omeprazole Omeprazole No Omeprazole 20 mg 20 mg 20 mg Allopurinol Allopurinol No Allopurino 300 mg 300 mg l 300 mg Furosemide Furosemide No Furosemide 20 mg 20 mg 20 mg Biotin 5000 Biotin 5000 No 1{table BID Biotin MCG MCG t} 5000 MCG Micardis 40 Micardis 40 No 1{table QD Micardis MG MG t} 40 MG Levothyroxi Levothyroxi No Levothyrox ne Sodium ne Sodium ine Sodium 50 MCG 50 MCG 50 MCG Simvastatin Simvastatin No Simvastati 20 mg 20 mg n 20 mg Levothyroxi Levothyroxi No QD Levothyrox ne Sodium ne Sodium ine Sodium 25 MCG 25 MCG 25 MCG Eliquis 5 Eliquis 5 No 1{table BID Eliquis 5 MG MG t} MG Gabapentin Gabapentin No Gabapentin 100 mg 100 mg 100 mg Metoprolol Metoprolol No Metoprolol Tartrate 50 Tartrate 50 Tartrate mg mg 50 mg Allopurinol Allopurinol No Allopurino 300 mg 300 mg l 300 mg Omeprazole Omeprazole No Omeprazole 20 mg 20 mg 20 mg Furosemide Furosemide No Furosemide 20 mg 20 mg 20 mg Biotin 5000 Biotin 5000 No 1{table BID Biotin MCG MCG t} 5000 MCG Micardis 40 Micardis 40 No 1{table QD Micardis MG MG t} 40 MG Levothyroxi Levothyroxi No Levothyrox ne Sodium ne Sodium ine Sodium 50 MCG 50 MCG 50 MCG Simvastatin Simvastatin No Simvastati 20 mg 20 mg n 20 mg Levothyroxi Levothyroxi No QD Levothyrox ne Sodium ne Sodium ine Sodium 25 MCG 25 MCG 25 MCG Eliquis 5 Eliquis 5 No 1{table BID Eliquis 5 MG MG t} MG Gabapentin Gabapentin No Gabapentin 100 mg 100 mg 100 mg Metoprolol Metoprolol No Metoprolol Tartrate 50 Tartrate 50 Tartrate mg mg 50 mg Allopurinol Allopurinol No Allopurino 300 mg 300 mg l 300 mg Omeprazole Omeprazole No Omeprazole 20 mg 20 mg 20 mg Furosemide Furosemide No Furosemide 20 mg 20 mg 20 mg Biotin 5000 Biotin 5000 No 1{table BID Biotin MCG MCG t} 5000 MCG Micardis 40 Micardis 40 No 1{table QD Micardis MG MG t} 40 MG Levothyroxi Levothyroxi No Levothyrox ne Sodium ne Sodium ine Sodium 50 MCG 50 MCG 50 MCG Simvastatin Simvastatin No Simvastati 20 mg 20 mg n 20 mg Levothyroxi Levothyroxi No QD Levothyrox ne Sodium ne Sodium ine Sodium 25 MCG 25 MCG 25 MCG Eliquis 5 Eliquis 5 No 1{table BID Eliquis 5 MG MG t} MG Gabapentin Gabapentin No Gabapentin 100 mg 100 mg 100 mg Metoprolol Metoprolol No Metoprolol Tartrate 50 Tartrate 50 Tartrate mg mg 50 mg Allopurinol Allopurinol No Allopurino 300 mg 300 mg l 300 mg Omeprazole Omeprazole No Omeprazole 20 mg 20 mg 20 mg Simvastatin Simvastatin No Simvastati 20 mg 20 mg n 20 mg Levothyroxi Levothyroxi No QD Levothyrox ne Sodium ne Sodium ine Sodium 25 MCG 25 MCG 25 MCG Gabapentin Gabapentin No Gabapentin 100 mg 100 mg 100 mg Allopurinol Allopurinol No Allopurino 300 mg 300 mg l 300 mg Metoprolol Metoprolol No Metoprolol Tartrate 50 Tartrate 50 Tartrate mg mg 50 mg Biotin 5000 Biotin 5000 No 1{table BID Biotin MCG MCG t} 5000 MCG Estradiol Estradiol No 1{table Estradiol 10 MCG 10 MCG t} 10 MCG Micardis 40 Micardis 40 No 1{table QD Micardis MG MG t} 40 MG Omeprazole Omeprazole No Omeprazole 20 mg 20 mg 20 mg Eliquis 5 Eliquis 5 No 1{table BID Eliquis 5 MG MG t} MG Furosemide Furosemide No Furosemide 20 mg 20 mg 20 mg Levothyroxi Levothyroxi No Levothyrox ne Sodium ne Sodium ine Sodium 50 MCG 50 MCG 50 MCG Metoprolol Metoprolol No Metoprolol Tartrate 50 Tartrate 50 Tartrate mg mg 50 mg Simvastatin Simvastatin No Simvastati 20 mg 20 mg n 20 mg Biotin 5000 Biotin 5000 No 1{table BID Biotin MCG MCG t} 5000 MCG Estradiol Estradiol No 1{table Estradiol 10 MCG 10 MCG t} 10 MCG Levothyroxi Levothyroxi No Levothyrox ne Sodium ne Sodium ine Sodium 50 MCG 50 MCG 50 MCG Micardis 40 Micardis 40 No 1{table QD Micardis MG MG t} 40 MG Gabapentin Gabapentin No Gabapentin 100 mg 100 mg 100 mg Allopurinol Allopurinol No Allopurino 300 mg 300 mg l 300 mg Eliquis 5 Eliquis 5 No 1{table BID Eliquis 5 MG MG t} MG Furosemide Furosemide No Furosemide 20 mg 20 mg 20 mg Levothyroxi Levothyroxi No QD Levothyrox ne Sodium ne Sodium ine Sodium 25 MCG 25 MCG 25 MCG Omeprazole Omeprazole No Omeprazole 20 mg 20 mg 20 mg Levothyroxi Levothyroxi No QD Levothyrox ne Sodium ne Sodium ine Sodium 25 MCG 25 MCG 25 MCG Estradiol Estradiol No 1{table Estradiol 10 MCG 10 MCG t} 10 MCG Furosemide Furosemide No Furosemide 20 mg 20 mg 20 mg Biotin 5000 Biotin 5000 No 1{table BID Biotin MCG MCG t} 5000 MCG Simvastatin Simvastatin No Simvastati 20 mg 20 mg n 20 mg Metoprolol Metoprolol No Metoprolol Tartrate 50 Tartrate 50 Tartrate mg mg 50 mg Gabapentin Gabapentin No Gabapentin 100 mg 100 mg 100 mg Micardis 40 Micardis 40 No 1{table QD Micardis MG MG t} 40 MG Eliquis 5 Eliquis 5 No 1{table BID Eliquis 5 MG MG t} MG Allopurinol Allopurinol No Allopurino 300 mg 300 mg l 300 mg Levothyroxi Levothyroxi No Levothyrox ne Sodium ne Sodium ine Sodium 50 MCG 50 MCG 50 MCG Omeprazole Omeprazole No Omeprazole 20 mg 20 mg 20 mg Metoprolol Metoprolol No Metoprolol Tartrate 50 Tartrate 50 Tartrate mg mg 50 mg Biotin 5000 Biotin 5000 No 1{table BID Biotin MCG MCG t} 5000 MCG Cholestyram Cholestyram No 1{packe BID Cholestyra ine 4 GM ine 4 GM t_mixed mine 4 GM _with_w ater_or _non-ca rbonate d_drink } Omeprazole Omeprazole No Omeprazole 20 mg 20 mg 20 mg Levothyroxi Levothyroxi No QD Levothyrox ne Sodium ne Sodium ine Sodium 25 MCG 25 MCG 25 MCG Levothyroxi Levothyroxi No Levothyrox ne Sodium ne Sodium ine Sodium 50 MCG 50 MCG 50 MCG Allopurinol Allopurinol No Allopurino 300 mg 300 mg l 300 mg Eliquis 5 Eliquis 5 No 1{table BID Eliquis 5 MG MG t} MG Furosemide Furosemide No Furosemide 20 mg 20 mg 20 mg Gabapentin Gabapentin No Gabapentin 100 mg 100 mg 100 mg Simvastatin Simvastatin No Simvastati 20 mg 20 mg n 20 mg Ibuprofen Ibuprofen No TID Ibuprofen 800 MG 800 MG 800 MG Micardis 40 Micardis 40 No 1{table QD Micardis MG MG t} 40 MG Estradiol Estradiol No 1{table Estradiol 10 MCG 10 MCG t} 10 MCG Benzonatate Benzonatate No 1{capsu TID Benzonatat 200 MG 200 MG le} e 200 MG Metoprolol Metoprolol No Metoprolol Tartrate 50 Tartrate 50 Tartrate mg mg 50 mg Biotin 5000 Biotin 5000 No 1{table BID Biotin MCG MCG t} 5000 MCG Cholestyram Cholestyram No 1{packe BID Cholestyra ine 4 GM ine 4 GM t_mixed mine 4 GM _with_w ater_or _non-ca rbonate d_drink } Omeprazole Omeprazole No Omeprazole 20 mg 20 mg 20 mg Levothyroxi Levothyroxi No QD Levothyrox ne Sodium ne Sodium ine Sodium 25 MCG 25 MCG 25 MCG Levothyroxi Levothyroxi No Levothyrox ne Sodium ne Sodium ine Sodium 50 MCG 50 MCG 50 MCG Allopurinol Allopurinol No Allopurino 300 mg 300 mg l 300 mg Eliquis 5 Eliquis 5 No 1{table BID Eliquis 5 MG MG t} MG Furosemide Furosemide No Furosemide 20 mg 20 mg 20 mg Gabapentin Gabapentin No Gabapentin 100 mg 100 mg 100 mg Simvastatin Simvastatin No Simvastati 20 mg 20 mg n 20 mg Ibuprofen Ibuprofen No TID Ibuprofen 800 MG 800 MG 800 MG Micardis 40 Micardis 40 No 1{table QD Micardis MG MG t} 40 MG Estradiol Estradiol No 1{table Estradiol 10 MCG 10 MCG t} 10 MCG Benzonatate Benzonatate No 1{capsu TID Benzonatat 200 MG 200 MG le} e 200 MG Azithromyci Azithromyci No QD Azithromyc n 250 MG n 250 MG in 250 MG Simvastatin Simvastatin No Simvastati 20 mg 20 mg n 20 mg Benzonatate Benzonatate No 1{capsu TID Benzonatat 200 MG 200 MG le} e 200 MG Eliquis 5 Eliquis 5 No 1{table BID Eliquis 5 MG MG t} MG Biotin 5000 Biotin 5000 No 1{table BID Biotin MCG MCG t} 5000 MCG Furosemide Furosemide No Furosemide 20 mg 20 mg 20 mg Allopurinol Allopurinol No Allopurino 300 mg 300 mg l 300 mg Benzonatate Benzonatate No 1{capsu TID Benzonatat 200 MG 200 MG le} e 200 MG Gabapentin Gabapentin No Gabapentin 100 mg 100 mg 100 mg Omeprazole Omeprazole No Omeprazole 20 mg 20 mg 20 mg Ibuprofen Ibuprofen No TID Ibuprofen 800 MG 800 MG 800 MG Estradiol Estradiol No 1{table Estradiol 10 MCG 10 MCG t} 10 MCG Micardis 40 Micardis 40 No 1{table QD Micardis MG MG t} 40 MG Levothyroxi Levothyroxi No Levothyrox ne Sodium ne Sodium ine Sodium 50 MCG 50 MCG 50 MCG Levothyroxi Levothyroxi No QD Levothyrox ne Sodium ne Sodium ine Sodium 25 MCG 25 MCG 25 MCG Metoprolol Metoprolol No Metoprolol Tartrate 50 Tartrate 50 Tartrate mg mg 50 mg Cholestyram Cholestyram No 1{packe BID Cholestyra ine 4 GM ine 4 GM t_mixed mine 4 GM _with_w ater_or _non-ca rbonate d_drink } Azithromyci Azithromyci No QD Azithromyc n 250 MG n 250 MG in 250 MG Simvastatin Simvastatin No Simvastati 20 mg 20 mg n 20 mg Benzonatate Benzonatate No 1{capsu TID Benzonatat 200 MG 200 MG le} e 200 MG Eliquis 5 Eliquis 5 No 1{table BID Eliquis 5 MG MG t} MG Biotin 5000 Biotin 5000 No 1{table BID Biotin MCG MCG t} 5000 MCG Furosemide Furosemide No Furosemide 20 mg 20 mg 20 mg Allopurinol Allopurinol No Allopurino 300 mg 300 mg l 300 mg Benzonatate Benzonatate No 1{capsu TID Benzonatat 200 MG 200 MG le} e 200 MG Gabapentin Gabapentin No Gabapentin 100 mg 100 mg 100 mg Omeprazole Omeprazole No Omeprazole 20 mg 20 mg 20 mg Ibuprofen Ibuprofen No TID Ibuprofen 800 MG 800 MG 800 MG Estradiol Estradiol No 1{table Estradiol 10 MCG 10 MCG t} 10 MCG Micardis 40 Micardis 40 No 1{table QD Micardis MG MG t} 40 MG Levothyroxi Levothyroxi No Levothyrox ne Sodium ne Sodium ine Sodium 50 MCG 50 MCG 50 MCG Levothyroxi Levothyroxi No QD Levothyrox ne Sodium ne Sodium ine Sodium 25 MCG 25 MCG 25 MCG Metoprolol Metoprolol No Metoprolol Tartrate 50 Tartrate 50 Tartrate mg mg 50 mg Cholestyram Cholestyram No 1{packe BID Cholestyra ine 4 GM ine 4 GM t_mixed mine 4 GM _with_w ater_or _non-ca rbonate d_drink } Benzonatate Benzonatate No 1{capsu TID Benzonatat 200 MG 200 MG le} e 200 MG Biotin 5000 Biotin 5000 No 1{table BID Biotin MCG MCG t} 5000 MCG Eliquis 5 Eliquis 5 No 1{table BID Eliquis 5 MG MG t} MG Furosemide Furosemide No Furosemide 20 mg 20 mg 20 mg Levothyroxi Levothyroxi No QD Levothyrox ne Sodium ne Sodium ine Sodium 50 MCG 50 MCG 50 MCG Benzonatate Benzonatate No 1{capsu TID Benzonatat 200 MG 200 MG le} e 200 MG Allopurinol Allopurinol No Allopurino 300 mg 300 mg l 300 mg Estradiol Estradiol No 1{table Estradiol 10 MCG 10 MCG t} 10 MCG Omeprazole Omeprazole No Omeprazole 20 mg 20 mg 20 mg Ibuprofen Ibuprofen No TID Ibuprofen 800 MG 800 MG 800 MG Simvastatin Simvastatin No Simvastati 20 mg 20 mg n 20 mg Micardis 40 Micardis 40 No 1{table QD Micardis MG MG t} 40 MG Cholestyram Cholestyram No 1{packe BID Cholestyra ine 4 GM ine 4 GM t_mixed mine 4 GM _with_w ater_or _non-ca rbonate d_drink } Gabapentin Gabapentin No Gabapentin 100 mg 100 mg 100 mg Metoprolol Metoprolol No Metoprolol Tartrate 50 Tartrate 50 Tartrate mg mg 50 mg Azithromyci Azithromyci No QD Azithromyc n 250 MG n 250 MG in 250 MG Benzonatate Benzonatate No 1{capsu TID Benzonatat 200 MG 200 MG le} e 200 MG Biotin 5000 Biotin 5000 No 1{table BID Biotin MCG MCG t} 5000 MCG Eliquis 5 Eliquis 5 No 1{table BID Eliquis 5 MG MG t} MG Furosemide Furosemide No Furosemide 20 mg 20 mg 20 mg Levothyroxi Levothyroxi No QD Levothyrox ne Sodium ne Sodium ine Sodium 50 MCG 50 MCG 50 MCG Benzonatate Benzonatate No 1{capsu TID Benzonatat 200 MG 200 MG le} e 200 MG Allopurinol Allopurinol No Allopurino 300 mg 300 mg l 300 mg Cholestyram Cholestyram No 1{packe BID Cholestyra ine 4 GM ine 4 GM t_mixed mine 4 GM _with_w ater_or _non-ca rbonate d_drink } Estradiol Estradiol No 1{table Estradiol 10 MCG 10 MCG t} 10 MCG Ibuprofen Ibuprofen No TID Ibuprofen 800 MG 800 MG 800 MG Omeprazole Omeprazole No QD Omeprazole 20 mg 20 mg 20 mg Micardis 40 Micardis 40 No 1{table QD Micardis MG MG t} 40 MG Simvastatin Simvastatin No Simvastati 20 mg 20 mg n 20 mg Gabapentin Gabapentin No Gabapentin 100 mg 100 mg 100 mg Metoprolol Metoprolol No Metoprolol Tartrate 50 Tartrate 50 Tartrate mg mg 50 mg Azithromyci Azithromyci No QD Azithromyc n 250 MG n 250 MG in 250 MG Benzonatate Benzonatate No 1{capsu TID Benzonatat 200 MG 200 MG le} e 200 MG Biotin 5000 Biotin 5000 No 1{table BID Biotin MCG MCG t} 5000 MCG Estradiol Estradiol No 1{table Estradiol 10 MCG 10 MCG t} 10 MCG Ibuprofen Ibuprofen No TID Ibuprofen 800 MG 800 MG 800 MG Benzonatate Benzonatate No 1{capsu TID Benzonatat 200 MG 200 MG le} e 200 MG Furosemide Furosemide No Furosemide 20 mg 20 mg 20 mg Levothyroxi Levothyroxi No QD Levothyrox ne Sodium ne Sodium ine Sodium 50 MCG 50 MCG 50 MCG Simvastatin Simvastatin No Simvastati 20 mg 20 mg n 20 mg Cholestyram Cholestyram No 1{packe BID Cholestyra ine 4 GM ine 4 GM t_mixed mine 4 GM _with_w ater_or _non-ca rbonate d_drink } Metoprolol Metoprolol No Metoprolol Tartrate 50 Tartrate 50 Tartrate mg mg 50 mg Gabapentin Gabapentin No TID Gabapentin 100 mg 100 mg 100 mg Eliquis 5 Eliquis 5 No 1{table BID Eliquis 5 MG MG t} MG Omeprazole Omeprazole No QD Omeprazole 20 mg 20 mg 20 mg Allopurinol Allopurinol No Allopurino 300 mg 300 mg l 300 mg Micardis 40 Micardis 40 No 1{table QD Micardis MG MG t} 40 MG Azithromyci Azithromyci No QD Azithromyc n 250 MG n 250 MG in 250 MG Benzonatate Benzonatate No 1{capsu TID Benzonatat 200 MG 200 MG le} e 200 MG Biotin 5000 Biotin 5000 No 1{table BID Biotin MCG MCG t} 5000 MCG Estradiol Estradiol No 1{table Estradiol 10 MCG 10 MCG t} 10 MCG Ibuprofen Ibuprofen No TID Ibuprofen 800 MG 800 MG 800 MG Benzonatate Benzonatate No 1{capsu TID Benzonatat 200 MG 200 MG le} e 200 MG Furosemide Furosemide No Furosemide 20 mg 20 mg 20 mg Levothyroxi Levothyroxi No QD Levothyrox ne Sodium ne Sodium ine Sodium 50 MCG 50 MCG 50 MCG Simvastatin Simvastatin No Simvastati 20 mg 20 mg n 20 mg Cholestyram Cholestyram No 1{packe BID Cholestyra ine 4 GM ine 4 GM t_mixed mine 4 GM _with_w ater_or _non-ca rbonate d_drink } Metoprolol Metoprolol No Metoprolol Tartrate 50 Tartrate 50 Tartrate mg mg 50 mg Gabapentin Gabapentin No TID Gabapentin 100 mg 100 mg 100 mg Eliquis 5 Eliquis 5 No 1{table BID Eliquis 5 MG MG t} MG Omeprazole Omeprazole No QD Omeprazole 20 mg 20 mg 20 mg Allopurinol Allopurinol No Allopurino 300 mg 300 mg l 300 mg Micardis 40 Micardis 40 No 1{table QD Micardis MG MG t} 40 MG Azithromyci Azithromyci No QD Azithromyc n 250 MG n 250 MG in 250 MG Benzonatate Benzonatate No 1{capsu TID Benzonatat 200 MG 200 MG le} e 200 MG Biotin 5000 Biotin 5000 No 1{table BID Biotin MCG MCG t} 5000 MCG Estradiol Estradiol No 1{table Estradiol 10 MCG 10 MCG t} 10 MCG Ibuprofen Ibuprofen No TID Ibuprofen 800 MG 800 MG 800 MG Benzonatate Benzonatate No 1{capsu TID Benzonatat 200 MG 200 MG le} e 200 MG Furosemide Furosemide No Furosemide 20 mg 20 mg 20 mg Levothyroxi Levothyroxi No QD Levothyrox ne Sodium ne Sodium ine Sodium 50 MCG 50 MCG 50 MCG Simvastatin Simvastatin No Simvastati 20 mg 20 mg n 20 mg Cholestyram Cholestyram No 1{packe BID Cholestyra ine 4 GM ine 4 GM t_mixed mine 4 GM _with_w ater_or _non-ca rbonate d_drink } Metoprolol Metoprolol No Metoprolol Tartrate 50 Tartrate 50 Tartrate mg mg 50 mg Gabapentin Gabapentin No TID Gabapentin 100 mg 100 mg 100 mg Eliquis 5 Eliquis 5 No 1{table BID Eliquis 5 MG MG t} MG Omeprazole Omeprazole No QD Omeprazole 20 mg 20 mg 20 mg Allopurinol Allopurinol No Allopurino 300 mg 300 mg l 300 mg Micardis 40 Micardis 40 No 1{table QD Micardis MG MG t} 40 MG Azithromyci Azithromyci No QD Azithromyc n 250 MG n 250 MG in 250 MG Gabapentin Gabapentin No TID Gabapentin 100 mg 100 mg 100 mg Biotin 5000 Biotin 5000 No 1{table BID Biotin MCG MCG t} 5000 MCG Estradiol Estradiol No 1{table Estradiol 10 MCG 10 MCG t} 10 MCG Sodium Sodium No Sodium Bicarbonate Bicarbonate Bicarbonat 325 MG 325 MG e 325 MG Cholestyram Cholestyram No 1{packe BID Cholestyra ine 4 GM ine 4 GM t_mixed mine 4 GM _with_w ater_or _non-ca rbonate d_drink } Probiotic Probiotic No Probiotic Furosemide Furosemide No Furosemide 20 mg 20 mg 20 mg Allopurinol Allopurinol No Allopurino 300 mg 300 mg l 300 mg Metoprolol Metoprolol No Metoprolol Tartrate 50 Tartrate 50 Tartrate mg mg 50 mg Benzonatate Benzonatate No 1{capsu TID Benzonatat 200 MG 200 MG le} e 200 MG Eliquis 5 Eliquis 5 No 1{table BID Eliquis 5 MG MG t} MG Micardis 40 Micardis 40 No 1{table QD Micardis MG MG t} 40 MG Cranberry Cranberry No Cranberry Levothyroxi Levothyroxi No QD Levothyrox ne Sodium ne Sodium ine Sodium 50 MCG 50 MCG 50 MCG Ibuprofen Ibuprofen No TID Ibuprofen 800 MG 800 MG 800 MG Simvastatin Simvastatin No Simvastati 20 mg 20 mg n 20 mg Famotidine Famotidine No 1{table QD Famotidine 20 MG 20 MG t_at_be 20 MG dtime_a s_neede d} Cephalexin Cephalexin No 1{capsu QID Cephalexin 500 MG 500 MG le} 500 MG Simvastatin Simvastatin No 1{table QD Simvastati 20 MG 20 MG t_in_ n 20 MG e_eveni ng} Omeprazole Omeprazole No 1{capsu QD Omeprazole 20 mg 20 mg le} 20 mg Gabapentin Gabapentin No 1{capsu TID Gabapentin 100 mg 100 mg le} 100 mg Eliquis 5 Eliquis 5 No 1{table BID Eliquis 5 MG MG t} MG Levothyroxi Levothyroxi No QD Levothyrox ne Sodium ne Sodium ine Sodium 50 MCG 50 MCG 50 MCG Allopurinol Allopurinol No 1{table QD Allopurino 300 MG 300 MG t} l 300 MG Micardis 80 Micardis 80 No 1{table QD Micardis MG MG t} 80 MG Immunizations Ordered Immunization Filled Immunization Date Status Commen ts Source Name Name FLUZONE HIGH DOSE FLUZONE HIGH DOSE 2021-05-15 Completed [facility] OVER [facility] OVER 65 17:08:00 - [facility] FLUZONE HIGH DOSE FLUZONE HIGH DOSE 2021-05-15 Completed [facility] OVER 65 OVER 65 17:08:00 [facility] FLUZONE HIGH DOSE FLUZONE HIGH DOSE 2021-05-15 Completed [facility] OVER 65 OVER 65 17:08:00 [facility] FLUZONE HIGH DOSE FLUZONE HIGH DOSE 2021-05-15 Completed [facility] OVER 65 OVER 65 17:08:00 - [facility] FLUZONE HIGH DOSE FLUZONE HIGH DOSE 2021-05-15 Completed [facility] OVER 65 OVER 65 17:08:00 - [facility] FLUZONE HIGH DOSE FLUZONE HIGH DOSE 2021-05-15 Completed [facility] OVER 65 OVER 65 17:08:00 - [facility] FLUZONE HIGH DOSE FLUZONE HIGH DOSE 2021-05-15 Completed [facility] OVER 65 OVER 65 17:08:00 - [facility] FLUZONE HIGH DOSE FLUZONE HIGH DOSE 2021-05-15 Completed [facility] OVER 65 OVER 65 17:08:00 - [facility] FLUZONE HIGH DOSE FLUZONE HIGH DOSE 2021-05-15 Completed [facility] OVER 65 OVER 65 17:08:00 - [facility] FLUZONE HIGH DOSE FLUZONE HIGH DOSE 2021-05-15 Completed [facility] OVER 65 OVER 65 17:08:00 - [facility] FLUZONE HIGH DOSE FLUZONE HIGH DOSE 2021-05-15 Completed [facility] OVER 65 OVER 65 17:08:00 - [facility] FLUZONE HIGH DOSE FLUZONE HIGH DOSE 2021-05-15 Completed [facility] OVER 65 OVER 65 17:08:00 - [facility] FLUZONE HIGH DOSE FLUZONE HIGH DOSE 2021-05-15 Completed [facility] OVER 65 OVER 65 17:08:00 - [facility] FLUZONE HIGH DOSE FLUZONE HIGH DOSE 2021-05-15 Completed [facility] OVER 65 OVER 65 17:08:00 - [facility] FLUZONE HIGH DOSE FLUZONE HIGH DOSE 2021-05-15 Completed [facility] OVER 65 OVER 65 17:08:00 - [facility] FLUZONE HIGH DOSE FLUZONE HIGH DOSE 2021-05-15 Completed [facility] OVER 65 OVER 65 17:08:00 - [facility] FLUZONE HIGH DOSE FLUZONE HIGH DOSE 2021-05-15 Completed [facility] OVER 65 OVER 65 17:08:00 - [facility] FLUZONE HIGH DOSE FLUZONE HIGH DOSE 2021-05-15 Completed [facility] OVER 65 OVER 65 17:08:00 - [facility] FLUZONE HIGH DOSE FLUZONE HIGH DOSE 2021-05-15 Completed [facility] OVER 65 OVER 65 17:08:00 - [facility] FLUZONE HIGH DOSE FLUZONE HIGH DOSE 2021-05-15 Completed [facility] OVER 65 OVER 65 17:08:00 - [facility] FLUZONE HIGH DOSE FLUZONE HIGH DOSE 2020-03-07 Completed [facility] OVER 65 OVER 65 11:04:00 - [facility] FLUZONE HIGH DOSE FLUZONE HIGH DOSE 2020-03-07 Completed [facility] OVER 65 OVER 65 11:04:00 - [facility] FLUZONE HIGH DOSE FLUZONE HIGH DOSE 2020-03-07 Completed [facility] OVER 65 OVER 65 11:04:00 - [facility] FLUZONE HIGH DOSE FLUZONE HIGH DOSE 2020-03-07 Completed [facility] OVER 65 OVER 65 11:04:00 - [facility] FLUZONE HIGH DOSE FLUZONE HIGH DOSE 2020-03-07 Completed [facility] OVER 65 OVER 65 11:04:00 - [facility] FLUZONE HIGH DOSE FLUZONE HIGH DOSE 2020-03-07 Completed [facility] OVER 65 OVER 65 11:04:00 - [facility] FLUZONE HIGH DOSE FLUZONE HIGH DOSE 2020-03-07 Completed [facility] OVER 65 OVER 65 11:04:00 - [facility] FLUZONE HIGH DOSE FLUZONE HIGH DOSE 2020-03-07 Completed [facility] OVER 65 OVER 65 11:04:00 - [facility] FLUZONE HIGH DOSE FLUZONE HIGH DOSE 2020-03-07 Completed [facility] OVER 65 OVER 65 11:04:00 - [facility] FLUZONE HIGH DOSE FLUZONE HIGH DOSE 2020-03-07 Completed [facility] OVER 65 OVER 65 11:04:00 - [facility] FLUZONE HIGH DOSE FLUZONE HIGH DOSE 2020-03-07 Completed [facility] OVER 65 OVER 65 11:04:00 - [facility] FLUZONE HIGH DOSE FLUZONE HIGH DOSE 2020-03-07 Completed [facility] OVER 65 OVER 65 11:04:00 - [facility] FLUZONE HIGH DOSE FLUZONE HIGH DOSE 2020-03-07 Completed [facility] OVER 65 OVER 65 11:04:00 - [facility] FLUZONE HIGH DOSE FLUZONE HIGH DOSE 2020-03-07 Completed [facility] OVER 65 OVER 65 11:04:00 - [facility] FLUZONE HIGH DOSE FLUZONE HIGH DOSE 2020-03-07 Completed [facility] OVER 65 OVER 65 11:04:00 - [facility] FLUZONE HIGH DOSE FLUZONE HIGH DOSE 2020-03-07 Completed [facility] OVER 65 OVER 65 11:04:00 - [facility] FLUZONE HIGH DOSE FLUZONE HIGH DOSE 2020-03-07 Completed [facility] OVER 65 OVER 65 11:04:00 - [facility] FLUZONE HIGH DOSE FLUZONE HIGH DOSE 2020-03-07 Completed [facility] OVER 65 OVER 65 11:04:00 - [facility] FLUZONE HIGH DOSE FLUZONE HIGH DOSE 2020-03-07 Completed [facility] OVER 65 OVER 65 11:04:00 - [facility] FLUZONE HIGH DOSE FLUZONE HIGH DOSE 2020-03-07 Completed [facility] OVER 65 OVER 65 11:04:00 - [facility] FLUZONE HIGH DOSE FLUZONE HIGH DOSE 2020-03-07 Completed [facility] OVER 65 OVER 65 11:04:00 - [facility] FLUZONE HIGH DOSE FLUZONE HIGH DOSE 2020-03-07 Completed [facility] OVER 65 OVER 65 11:04:00 - [facility] Vital Signs Vital Name Observation Time Observation Value Comments Source height 2022-05-28 13:50:00 64.00 [in_i] [facility] weight 2022-05-28 13:50:00 186 [lb_av] [facility] temperature 2022-05-28 13:50:00 98.3 [degF] [facility] bmi 2022-05-28 13:50:00 31.92 kg/m2 [facility] height 2022-03-23 14:20:00 64.00 [in_i] [facility] weight 2022-03-23 14:20:00 187.2 [lb_av] [facility] temperature 2022-03-23 14:20:00 97.3 [degF] Common [facility] bmi 2022-03-23 14:20:00 32.13 kg/m2 [facility] oximetry 2022-03-23 14:20:00 100 % [facility] respiratory rate 2022-03-23 14:20:00 16 /min Comm on [facility] blood pressure 2022-03-23 14:20:00 132 mm[Hg] [facility] - systolic [facility] blood pressure 2022-03-23 14:20:00 64 mm[Hg] [facility] - diastolic [facility] height 2021-12-15 11:20:00 64.00 [in_i] [facility] weight 2021-12-15 11:20:00 186.0 [lb_av] [facility] temperature 2021-12-15 11:20:00 97.2 [degF] Common [facility] bmi 2021-12-15 11:20:00 31.92 kg/m2 [facility] oximetry 2021-12-15 11:20:00 99 % [facility] respiratory rate 2021-12-15 11:20:00 15 /min Comm on [facility] blood pressure 2021-12-15 11:20:00 129 mm[Hg] Common [facility] - systolic [facility] blood pressure 2021-12-15 11:20:00 63 mm[Hg] [facility] - diastolic [facility] Systolic blood 2021-10-08 15:34:00 133 mm[Hg] Univer sity of pressure [facility] Diastolic blood 2021-10-08 15:34:00 78 mm[Hg] Unive rsity of pressure [facility] Heart rate 2021-10-08 15:34:00 90 /min Universi ty [facility] Body height 2021-10-08 15:34:00 165.1 cm Universi [facility] Body weight 2021-10-08 15:34[facility] 2021-10-08 15:34:00 33.02 kg/m2 [facility] Oxygen saturation in 2021-10-08 15:34:00 97 /min University Arterial blood by [facility] Pulse oximetry Branch height 2021-09-15 10:30:00 64.00 [in_i] [facility] weight 2021-09-15 10:30:00 197.4 [lb_av] [facility] temperature 2021-09-15 10:30:00 96.8 [degF] [facility] bmi 2021-09-15 10:30:00 33.88 kg/m2 [facility] oximetry 2021-09-15 10:30:00 99 % [facility] respiratory rate 2021-09-15 10:30:00 18 /min Comm on [facility] blood pressure 2021-09-15 10:30:00 128 mm[Hg] Common [facility] systolic [facility] blood pressure 2021-09-15 10:30:00 62 mm[Hg] Common [facility] diastolic [facility] height 2021-09-15 11:00:00 64.00 [in_i] [facility] weight 2021-09-15 11:00:00 197.4 [lb_av] [facility] temperature 2021-09-15 11:00:00 96.8 [degF] [facility] bmi 2021-09-15 11:00:00 33.88 kg/m2 [facility] oximetry 2021-09-15 11:00:00 99 % [facility] respiratory rate 2021-09-15 11:00:00 18 /min Comm on [facility] blood pressure 2021-09-15 11:00:00 128 mm[Hg] [facility] - systolic [facility] blood pressure 2021-09-15 11:00:00 62 mm[Hg] [facility] - diastolic [facility] height 2021-06-16 13:00:00 64.00 [in_i] [facility] weight 2021-06-16 13:00:00 201.0 [lb_av] [facility] temperature 2021-06-16 13:00:00 97.2 [degF] [facility] bmi 2021-06-16 13:00:00 34.5 kg/m2 [facility] oximetry 2021-06-16 13:00:00 99 % [facility] blood pressure 2021-06-16 13:00:00 107 mm[Hg] [facility] - systolic [facility] blood pressure 2021-06-16 13:00:00 56 mm[Hg] [facility] - diastolic [facility] height 2021-05-15 16:00:00 64.00 [in_i] [facility] weight 2021-05-15 16:00:00 203.4 [lb_av] Common [facility] temperature 2021-05-15 16:00:00 97.2 [degF] [facility] bmi 2021-05-15 16:00:00 34.91 kg/m2 [facility] oximetry 2021-05-15 16:00:00 99 % [facility] respiratory rate 2021-05-15 16:00:00 16 /min [facility] on [facility] blood pressure 2021-05-15 16:00:00 121 mm[Hg] [facility] - systolic [facility] blood pressure 2021-05-15 16:00:00 63 mm[Hg] [facility] - diastolic [facility] height 2021-01-13 16:00:00 64.00 [in_i] [facility] weight 2021-01-13 16:00:00 203 [lb_av] Common [facility] temperature 2021-01-13 16:00:00 97.3 [degF] Common [facility] bmi 2021-01-13 16:00:00 34.84 kg/m2 Common [facility] oximetry 2021-01-13 16:00:00 98 % Common [facility] blood pressure 2021-01-13 16:00:00 106 mm[Hg] Common [facility] - systolic [facility] blood pressure 2021-01-13 16:00:00 59 mm[Hg] Common [facility] - diastolic [facility] Procedures This patient has no known procedures. Encounters Start End Encounter Admission Attending Care Care Encounter Source Date/Time Date/Time Type Type Clinicians Facility Department ID 2022-09-28 Outpatient Clark, STLMLC STLMLC [id number] Common 10:11:01 [facility] [address] [facility] 2022-06-29 Outpatient Clark, STLMLC STLMLC [id number] Common 13:58:00 [facility] [address] [facility] 2022-03-22 Outpatient Jones, Na STLMLC STLMLC [id number] Common 07:45:01 [facility] 2022-03-12 Outpatient Jones, Na STLMLC STLMLC [id number] Common 07:53:00 [facility] 2021-12-11 Outpatient Jones, Na STLMLC STLMLC [id number] Common 08:28:01 [facility] 2021-06-24 Outpatient Jones, Na STLMLC STLMLC [id number] 2 Common 14:38:50 [facility] 2021-06-24 Outpatient Jones, Na STLMLC STLMLC [id number] 2 Common 14:36:59 [facility] 2021-06-24 Outpatient Jones, Na STLMLC STLMLC [id number] 2 Common 14:36:19 [facility] 2021-06-24 Outpatient Jones, Na STLMLC STLMLC [id number] 2 Common 14:35:33 [facility] 2021-06-24 Outpatient Jones, Na STLMLC STLMLC [id number] 2 Common 14:26:12 [id number] [facility] 2021-06-24 Outpatient Jones, Na STLMLC STLMLC [id number] 2 Common 14:25:25 [address] [facility] 2021-06-24 Outpatient Jones, Na STLMLC STLMLC [id number] 2 Common 13:18:12 53133 [facility] 2021-06-24 Outpatient Jones, Na STLMLC STLMLC [id number] 2 Common 12:57:57 [id number] [facility] 2021-06-24 Outpatient Jones, Na STLMLC STLMLC [id number] 2 Common 12:22:25 13335 [facility] 2021-06-24 Outpatient Jones, Na STLMLC STLMLC [id number] 2 Common 12:21:04 [id number] [facility] 2021-06-24 Outpatient Clark, STLMLC STLMLC [id number] Common 12:14:56 [facility] [address] [facility] 2021-06-24 Outpatient Clark, STLMLC STLMLC [id number] Common 12:00:33 [facility] [address] [facility] 2021-06-24 Outpatient Millender, STLMLC STLMLC [id number] Common 11:47:13 [place] [address] [facility] 2021-06-24 Outpatient Millender, STLMLC STLMLC [id number] Common 11:30:43 [place] [address] [facility] 2021-06-24 Outpatient Millender, STLMLC STLMLC [id number] Common 11:14:46 Raven [id number] [facility] 2022-12-22 2022-12-22 Outpatient GC_GCBZW_Ka PRIV PRIV [id number] [facility] 00:00:00 00:00:00 diyala_S [id number] Medic al 2022-12-16 2022-12-16 Outpatient GC_GCBZW_Ka PRIV PRIV [id number] [facility] 00:00:00 00:00:00 diyala_S [id number] Medic al 2022-07-01 2022-07-01 (TEL) STLMLC STLMLC [id number] [facility] 00:00:00 00:00:00 [facility] 2022-07-01 2022-07-01 (TEL) STLMLC STLMLC [id number] [facility] 00:00:00 00:00:00 [facility] 2022-06-29 2022-06-29 (TEL) STLMLC STLMLC [id number] [facility] 00:00:00 00:00:00 [facility] 2022-06-21 2022-06-21 (TEL) STLMLC STLMLC [id number] [facility] 00:00:00 00:00:00 [facility] 2022-06-15 2022-06-15 (TEL) STLMLC STLMLC [id number] [facility] 00:00:00 00:00:00 [facility] 2022-05-28 2022-05-28 OFFICE STLMLC STLMLC [id number] Co mmon 00:00:00 00:00:00 VISIT EST Spir it PT LEVEL 3 [facility] 2022-05-28 2022-05-28 (TEL) STLMLC STLMLC [id number] Co mmon 00:00:00 00:00:00 [facility] 2022-04-16 2022-04-16 (TEL) STLMLC STLMLC [id number] [facility] 00:00:00 00:00:00 [facility] 2022-03-23 2022-03-23 OFFICE STLMLC STLMLC [id number] Co mmon 00:00:00 00:00:00 VISIT [facility] PT [facility] LEVEL 4 [facility] 2022-03-12 2022-03-12 (TEL) STLMLC STLMLC [id number] Co mmon 00:00:00 00:00:00 [facility] 2022-01-13 2022-01-13 (TEL) STLMLC STLMLC [id number] Co mmon 00:00:00 00:00:00 [facility] 2021-12-17 2021-12-17 Outpatient R [facility] [id number] Univers 13:00:00 13:00:00 CONOR hernandez [facility] 2021-12-15 2021-12-15 OFFICE STLMLC STLMLC [id number] Co mmon 00:00:00 00:00:00 VISIT [facility] LEVEL 4 [facility] 2021-11-20 2021-11-20 Ancillary Khloe Eason [facility] [id number] Univers 13:00:00 13:45:00 Visit Conor Mckeon [id number] [id number] [phone] Tn dical NAL 179 [facility] 2021-11-18 2021-11-18 Ancillary Nilesh Eason [facility] [id number] Univers 16:00:00 16:45:00 Visit Conor Mckeon [id number] [id number] [phone] Tn dical NAL 179 [facility] 2021-11-17 2021-11-17 (TEL) STLMLC STLMLC [id number] [facility] 00:00:00 00:00:00 [facility] 2021-11-12 2021-11-12 (TEL) STLMLC STLMLC [id number] [facility] 00:00:00 00:00:00 [facility] 2021-11-02 2021-11-02 James Eason [facility] [id number] Univers 00:00:00 00:00:00 Management Nilesh SMITH [id number] ity of [facility] [id number] [phone] Tn dical NAL 179 [facility] 2021-10-28 2021-10-28 Outpatient R [facility] [id number] Univers 13:45:00 16:45:43 CONOR hernandez [facility] 2021-10-28 2021-10-28 Ancillary Nilesh Eason [facility] [id number] Univers 13:45:00 14:30:00 Visit Conor Mckeon [id number] ity of [facility] [id number] [phone] Tn dictemitope [facility] 179 [facility] 2021-10-21 2021-10-22 [facility] [id number] Univers 13:00:00 10:17:05 CONOR hernandez [facility] 2021-10-21 2021-10-22 Ancillary Kelle Patiño [facility] [id number] Univers 13:00:00 10:17:05 [facility] [id number] [id number] [phone] [address] 2021-10-08 2021-10-08 Outpatient R [facility] [id number] Univers 10:50:00 23:59:00 CONOR hernandez [facility] 2021-10-08 2021-10-08 [facility] [id number] Univers 10:45:00 11:05:12 CONOR hernandez [facility] 2021-10-08 2021-10-08 [facility] [id number] Univers 10:45:00 11:05:12 Visit Conor Hastings [facility] [id number] [facility] [facility] [id number] Johnathon as RADHA?BLEA [phone] Tn [facility] [address] OFFICE BUILDING 2021-09-24 2021-09-24 Orders Doctor AMEE [id number] Univers 00:00:00 00:00:00 Only Unassigned, DAYNA [id number] ity of [place] [facility] [id number] Johnathon as [phone] [facility] [address] 2021-09-15 2021-09-15 SUB ANNUAL [facility] STLC [id number] Common 00:00:00 00:00:00 MCR Spirit WELLNESS - CHI VISIT [facility] 2021-09-15 2021-09-15 OFFICE STLMLC STLMLC [id number] Co mmon 00:00:00 00:00:00 VISIT Spirit ESTAB PT - CHI LEVEL 3 [facility] 2021-09-03 2021-09-03 (TEL) STLMLC STLC [id number] Co mmon 00:00:00 00:00:00 Spirit - CHI [facility] 2021-07-13 2021-07-13 [facility] [id number] Univers 13:33:48 23:59:00 Encounter Nohemy SARAH [id number] ity [facility] [id number] [facility] [id number] [facility] [address] 2021-07-13 2021-07-13 Outpatient R [facility] [id number] Univers 13:33:48 23:59:00 NOHEMY ity [facility] 2021-07-13 2021-07-13 Orders Doctor AMEE [id number] Univers 00:00:00 00:00:00 Only Unassigned, DAYNA [id number] ity of [place] [facility] [id number] Johnathon as [id number] [facility] [address] 2021-06-17 2021-06-17 (TEL) STLC STLC [id number] Co mmon 00:00:00 00:00:00 Spirit - CHI [facility] 2021-06-16 2021-06-16 OFFICE STLC STLC [id number] Co mmon 00:00:00 00:00:00 VISIT EST Spir it PT LEVEL 3 [facility] 2021-05-15 2021-05-15 OFFICE STLMLC STLMLC [id number] Co mmon 00:00:00 00:00:00 VISIT EST Spir it PT LEVEL [address] [place] [address] 2021-03-24 2021-03-24 (TEL) STLMLC STLMLC [id number] Co mmon 00:00:00 00:00:00 [facility] 2021-01-13 2021-01-13 OFFICE STLMLC STLMLC [id number] Co mmon 00:00:00 00:00:00 VISIT EST Spir it PT LEVEL [address] [place] [address] 2021-01-02 2021-01-02 Outpatient STLMLC STLMLC [id number] Common 00:00:00 00:00:00 [facility] 2020-12-17 2020-12-17 Outpatient STLMLC STLMLC [id number] Common 00:00:00 00:00:00 [facility] 2020-12-05 2020-12-05 Outpatient STLMLC STLMLC [id number] Common 00:00:00 00:00:00 [facility] 2020-10-17 2020-10-17 Outpatient STLMLC STLMLC [id number] Common 00:00:00 00:00:00 [facility] 2020-09-25 2020-09-25 Outpatient STLMLC STLMLC [id number] Common 00:00:00 00:00:00 [facility] 2020-09-25 2020-09-25 Outpatient STLMLC STLMLC [id number] Common 00:00:00 00:00:00 [facility] 2020-09-04 2020-09-04 Outpatient STLMLC STLMLC [id number] Common 00:00:00 00:00:00 [facility] 2020-07-29 2020-07-29 Outpatient STLMLC STLMLC [id number] Common 00:00:00 00:00:00 [facility] 2020-07-10 2020-07-10 Outpatient STLMLC STLMLC [id number] Common 00:00:00 00:00:00 [facility] 2020-06-27 2020-06-27 Outpatient STLMLC STLMLC [id number] Common 00:00:00 00:00:00 [facility] 2020-06-16 2020-06-16 Outpatient STLMLC STLMLC [id number] Common 00:00:00 00:00:00 [facility] 2020-04-14 2020-04-14 Outpatient STLMLC STLMLC [id number] Common 00:00:00 00:00:00 [facility] 2020-03-17 2020-03-17 Outpatient STLMLC STLMLC [id number] Common 00:00:00 00:00:00 [facility] 2020-03-07 2020-03-07 Outpatient STLMLC STLMLC [id number] Common 00:00:00 00:00:00 [facility] 2019-12-06 2019-12-06 [facility] [id number] Common 14:20:00 14:20:[address] [facility] [address] [facility] 2019-11-29 2019-11-29 Out[facility] [id number] Common 10:37:00 10:37:[address] [facility] [address] [facility] 2019-11-16 2019-11-16 [facility] [id number] Common 13:20:00 13:20:[address] [facility] [address] [facility] 2019-08-20 2019-08-20 [facility] [id number] Common 12:42:00 12:42:[address] [facility] [address] [facility] 2019-08-18 2019-08-18 Out[facility] [id number] Common 21:15:00 21:15:[address] [facility] [address] [facility] 2019-08-16 2019-08-16 [facility] [id number] Common 14:00:00 14:00:00 [facility] Results Test Description Test Time Test Comments Results Result Comments Source SARS-COV2/RT-PCR ([facility]) 2019-11-22 13:52:00 Test Item Value Reference Range Interpretation Comme nts SARS-COV2/RT-PCR (test code = 4165970) Not Detected Not Detected, N egative SARS-COV-2 PERFORMING LAB (test code = [facility] [id number]) Negative results do not preclude SARS-CoV-2 infection [...] of the Act.Fact Sheet for Healthcare Pro viders:https://www.ControlCircle.GraphSQL/Documents/Xpert%20Xpress%20SARS%20CoV-2/Fact%20Sh eets/302-8312%83BRXM-TPY-6%20HEALTHCARE%20PROVIDERS%20FACT%20SHEET.pdfFact Sheet for Healthcare Patients:https://www.Fortnox id.GraphSQL/Documents/Xpert%20Xpress%20SARS%20CoV-2/Fact%20Sheets/302-1871%20SARS-COV -2%20PATIENT%20FACT%20SHEET.pdfPerforming Laboratory:[facility] [place] [address]
--- NOTE | 2023-01-21 11:00 | ER ---
Nurse's Notes [facility] Name: Sarah Miller Age: 77 yrs Sex: Female : 1945 Arrival Date: 01/21/2023 Time: 10:42 Bed 15 Private MD: Porfirio Clark Diagnosis: Skin tear of left forearm Presentation: 01/21 10:56 Chief complaint: Left arm skin tear yesterday, takes Eliquis, will not stop bleeding. hb Coronavirus screen: At this time, the client does not indicate any symptoms associated with coronavirus-19. Ebola Screen: No symptoms or risks identified at this time. Initial Sepsis Screen: Does the patient meet any 2 criteria? No. Patient's initial sepsis screen is negative. Does the patient have a suspected source of infection? No. Patient's initial sepsis screen is negative. Risk Assessment: Do you want to hurt yourself or someone else? Patient reports no desire to harm self or others. Onset of symptoms was January 20, 2023. 10:56 Method Of Arrival: Ambulatory hb 10:56 Acuity: JOYCE 4 hb Historical: - Allergies: 10:58 PENICILLINS; hb - Home Meds: 10:58 Allopurinol Oral [Active]; Eliquis Oral [Active]; lisinopril Oral [Active]; Metoprolol hb Tartrate Oral [Active]; - PMHx: 10:58 Atrial fibrillation; Hypertension; Myocardial infarction; hb - PSHx: 10:58 Cholecystectomy; hb - Immunization history:: Adult Immunizations up to date. - Social history:: Smoking status: Patient denies any tobacco usage or history of. Screenin:21 [facility] ED Fall Risk Assessment (Adult) History of falling in the last 3 months, db including since admission No falls in past 3 months (0 pts) Confusion or Disorientation No (0 pts) Intoxicated or Sedated No (0 pts) Impaired Gait No (0 pts) Mobility Assist Device Used No (0 pt) Altered Elimination No (0 pt) Score/Fall Risk Level 0 - 2 = Low Risk Oriented to surroundings, Maintained a safe environment. Abuse screen: Denies threats or abuse. Denies injuries from another. Nutritional screening: No deficits noted. Tuberculosis screening: No symptoms or risk factors identified. Assessment: 11:03 Reassessment: Patient appears in no apparent distress at this time. Patient and/or db family updated on plan of care and expected duration. Pain level reassessed. Patient is alert, oriented x 3, equal unlabored respirations, skin warm/dry/pink. LEFT ARM SKIN TEAR. General: Appears in no apparent distress. comfortable, Behavior is calm, cooperative. Pain: Complains of pain in left arm. Derm: Wound noted left arm. 11:21 Neuro: Level of Consciousness is awake, alert, obeys commands, Oriented to person, db place, time, situation. Vital Signs: 10:56 BP 127 / 71; Pulse 92; Resp 16; Pulse Ox 98% on R/A; Weight 86.64 kg; Height 5 ft. 5 hb in. ; Pain 2/10; 10:56 Body Mass Index 31.78 (86.64 kg, 165.1 cm) hb 10:56 Pain Scale: Adult hb ED Course: 10:45 Patient arrived in ED. mr 10:45 Porfirio Clark DO is Private Physician. mr 10:48 Zaynab Eason PA-C is PHCP. sb4 10:48 Randy Cates MD is Attending Physician. sb4 10:58 Triage completed. hb 10:59 Porfirio Clark DO is Referral Physician. sb4 10:59 Arm band placed on. hb 11:03 Marsha Romero, TONE is Primary Nurse. db 11:19 No provider procedures requiring assistance completed. Wound care: to SKIN TEAR TO LEFT db ARM located on left arm was cleaned with dressed with Neosporin, Kerlix, NON ADAPTIC DRESSING. 11:19 Patient did not have IV access during this emergency room visit. db 11:21 Patient has correct armband on for positive identification. Bed in low position. Call db light in reach. Side rails up X 1. Provided Education on: DISCHARGE. Administered Medications: No medications were administered Medication: 11:21 VIS not applicable for this client. db Outcome: 11:00 Discharge ordered by . sb4 11:21 Discharged to home ambulatory. db 11:21 Condition: stable 11:21 Discharge instructions given to patient, Instructed on discharge instructions, follow up and referral plans. 11:23 Patient left the ED. db 12:17 Patient left the ED. ds4 Signatures: Denise Craven mr Joseluis Quan ds4 Xochitl Hagen, RN RN Marsha Live, RN RN Zaynab Joseph, PA-C PA-C sb4
--- NOTE | 2023-01-21 11:01 | EDPHYS ---
Physician Documentation [facility] Name: Sarah Miller Age: 77 yrs Sex: Female : 1945 Arrival Date: 01/21/2023 Time: 10:42 Bed 15 Private MD: Eduardo [facility] ED Physician Randy Cates HPI: 01/21 11:01 This 77 yrs old Female presents to ER via Ambulatory with complaints of Skin sb4 Tear(s). 11:01 Onset: The symptoms/episode began/occurred yesterday. The patient has not experienced sb4 similar symptoms in the past. The patient has not recently seen a physician. 17:58 patient states that she bumped her arm on the wall yesterday causing a skin tear on her sb4 left forearm. she reports it continues to bleed as she is on eliquis and was told by her family to come to the ED. Historical: - Allergies: 10:58 PENICILLINS; hb - Home Meds: 10:58 Allopurinol Oral [Active]; Eliquis Oral [Active]; lisinopril Oral [Active]; Metoprolol hb Tartrate Oral [Active]; - PMHx: 10:58 Atrial fibrillation; Hypertension; Myocardial infarction; hb - PSHx: 10:58 Cholecystectomy; hb - Immunization history:: Adult Immunizations up to date. - Social history:: Smoking status: Patient denies any tobacco usage or history of. ROS: 11:01 Constitutional: Negative for fever, chills, and weight loss. sb4 11:01 Skin: Positive for laceration(s). 11:01 All other systems are negative. Exam: 11:01 Constitutional: This is a well developed, well nourished patient who is awake, alert, sb4 and in no acute distress. 11:01 Skin: injury, laceration(s), the wound is approximately 4 cm(s), with a depth of .1 cm(s), of the dorsal aspect of left forearm, that can be described as clean, no foreign body, linear, with mild bleeding. Vital Signs: 10:56 BP 127 / 71; Pulse 92; Resp 16; Pulse Ox 98% on R/A; Weight 86.64 kg; Height 5 ft. 5 hb in. ; Pain 2/10; 10:56 Body Mass Index 31.78 (86.64 kg, 165.1 cm) hb 10:56 Pain Scale: Adult hb MDM: 10:48 Patient medically screened. sb4 11:01 Differential diagnosis: superficial laceration, skin tear, fracture. Data reviewed: sb4 vital signs, nurses notes, and as a result, I will discharge patient. Counseling: I had a detailed discussion with the patient and/or guardian regarding the historical points, exam findings, and any diagnostic results supporting the discharge/admit diagnosis, to return to the emergency department if symptoms worsen or persist or if there are any questions or concerns that arise at home. 01/21 10:59 Order name: Wound Care: steri strips, gauze, emma wrap; Complete Time: 11:19 sb4 Administered Medications: No medications were administered Disposition: 12:10 Co-signature as Attending Physician, Randy Cates MD I reviewed the patient's care rn provided by the Advanced Practice Provider and agree with the diagnosis and treatment plan. Disposition Summary: 01/21/23 11:00 Discharge Ordered Location: Home sb4 Problem: new sb4 Symptoms: have improved sb4 Condition: Stable sb4 Diagnosis - Skin tear of left forearm sb4 Followup: sb4 - With: Porfirio Clark, DO - When: As needed - Reason: Recheck today's complaints, Continuance of care, Re-evaluation by your physician Discharge Instructions: - Discharge Summary Sheet sb4 - Skin Tear, [id number] sb4 - Wound Care, Adult sb4 Forms: - Medication Reconciliation Form sb4 - Thank You Letter sb4 - Antibiotic Education sb4 - Prescription Opioid Use sb4 - Patient Portal Instructions sb4 - Leadership Thank You Letter sb4 Signatures: Randy Cates MD MD rn Baxter, Heather, RN RN hb Brown, Sophia PARufino PAKelseaC sb4
[2023-01-21 11:31] VITALS: BP 127/71; O2SAT 98
== END 2023-01-21 12:17 | disposition home or self-care (01) ==
LOC: ER 10:42
DX: S51.812A Laceration without foreign body of left forearm, initial encounter (principal)
CPT/HCPCS: 99283